=== PATIENT | female | born 1975 | race Two or more races ===

== ENCOUNTER 2016-09-07 04:48 | Emergency (ER) | payer OTHER ==
[2016-09-07 05:11] VITALS: BP 113/65; PULSE 117; TEMP 98; BMI 27.3
--- NOTE | 2016-09-07 05:22 | PDOC ---
History of Present Illness - History of Present Illness Initial Comments: 09/07/16 06:07 The patient is a 41 year old female, with a significant past medical history of migraines, who presents to the emergency department with dry cough, sinus congestion, generalized body aches, throat pain, and fevers for a week. She reports her cough is dry, non-productive and persistent. She states her sinuses have felt congested for about 5 months, however, reports the area surrounding her nose feels more painful today. She also reports feeling diffuse muscle aches along with her fevers. The patient also reports sever throat pain, worse with swallowing and opening her mouth. She denies having the Flu vaccine this season. She denies sick contacts. She denies chest pain, shortness of breath, headache and dizziness. She denies chills, nausea, vomit, diarrhea and constipation. She denies dysuria, frequency , urgency and hematuria. Allergies: NKDA <Ary Parrish - Last Filed: 09/07/16 06:06> <Tanner Aguirre - Last Filed: 09/07/16 06:45> - General Chief Complaint: Cold Symptoms Stated Complaint: COUGHING/FEVER/BODY ACHES Past History <Ary Parrish - Last Filed: 09/07/16 06:06> - Past Medical History Suicide Attempt (Hx): No - Immunization History Immunization Up to Date: Yes - Psycho/Social/Smoking Cessation Hx Anxiety: No Suicidal Ideation: No Smoking Status: No Smoking History: Never smoked Have you smoked in the past 12 months: No Number of Cigarettes Smoked Daily: 0 Cigars Per Day: 0 Information on smoking cessation initiated: No Hx Alcohol Use: No Drug/Substance Use Hx: No Substance Use Type: None Hx Substance Use Treatment: No <Tanner Aguirre - Last Filed: 09/07/16 06:45> - Past Medical History Allergies/Adverse Reactions: Allergies Allergy/AdvReac Type Severity Reaction Status Date / Time oxycodone HCl [From Percocet] Allergy Severe Swelling Verified 09/07/16 04:56 pseudoephedrine HCl Allergy Severe Elevated Verified 09/07/16 04:56 [From Sudafed] Blood Pressure Sulfa (Sulfonamide Allergy Severe Elevated Verified 09/07/16 04:56 Antibiotics) Blood [Sulfa(Sulfonamide Pressure Antibiotics)] Penicillins Allergy Unknown Verified 09/07/16 04:56 azithromycin [From Zithromax] Allergy Elevated Verified 09/07/16 04:56 Blood Pressure codeine [Codeine] AdvReac Mild Elevated Verified 09/07/16 04:56 Blood Pressure Home Medications: Ambulatory Orders Hydroxyzine Pamoate [Vistaril -] 25 mg PO TID 09/07/16 Review of Systems - Review of Systems Able to Perform ROS?: Yes Comments:: 09/07/16 06:07 CONSTITUTIONAL: (+) fever and generalized weakness. Absent: chills, diaphoresis, malaise, loss of appetite HEENT: (+) nasal congestion, throat pain. Absent: rhinorrhea, throat swelling, difficulty swallowing, mouth swelling, ear pain, eye pain, visual Changes CARDIOVASCULAR: Absent: chest pain, syncope, palpitations, irregular heart rate, lightheadedness , peripheral edema RESPIRATORY: (+) cough. Absent: shortness of breath, dyspnea with exertion, orthopnea, wheezing, stridor, hemoptysis GASTROINTESTINAL: Absent: abdominal pain, abdominal distension, nausea, vomiting, diarrhea, constipation, melena, hematochezia GENITOURINARY: Absent: dysuria, frequency, urgency, hesitancy, hematuria, flank pain, genital pain MUSCULOSKELETAL: (+) generalized myalgia. Absent: arthralgia, joint swelling SKIN: Absent: rash, itching, pallor HEMATOLOGIC/IMMUNOLOGIC: Absent: easy bleeding, easy bruising, lymphadenopathy, frequent infections ENDOCRINE: Absent: unexplained weight gain, unexplained weight loss, heat intolerance, cold intolerance NEUROLOGIC: Absent: headache, focal weakness or paresthesias, dizziness, unsteady gait, seizure, mental status changes, bladder or bowel incontinence PSYCHIATRIC: Absent: anxiety, depression, suicidal or homicidal ideation, hallucinations. <Ary Parrish - Last Filed: 09/07/16 06:06> *Physical Exam - Vital Signs Last Vital Signs Temp Pulse Resp BP Pulse Ox 98.0 F 117 H 14 113/65 96 09/07/16 04:57 09/07/16 04:57 09/07/16 04:57 09/07/16 04:57 09/07/16 04:57 - Physical Exam Comments: 09/07/16 06:09 GENERAL: Well developed, well nourished. Awake and alert. No acute distress. HEENT: (+) Sinusitis. Normocephalic, atraumatic. PERRLA, EOMI. No conjunctival pallor. Sclera are non-icteric. Moist mucous membranes. Oropharynx is clear. NECK: (+) tender cervical lymphadenopathy, Supple. Full ROM. No JVD. Carotid pulses 2 + and symmetric, without bruits. No thyromegaly. CARDIOVASCULAR: Regular rate and rhythm. No murmurs, rubs, or gallops. Distal pulses are 2+ and symmetric. PULMONARY: No evidence of respiratory distress. Lungs clear to auscultation bilaterally. No wheezing, rales or rhonchi. ABDOMINAL: Soft. Non-tender. Non-distended. No rebound or guarding. No organomegaly. Normoactive bowel sounds. MUSCULOSKELETAL Normal range of motion at all joints. No bony deformities or tenderness. No CVA tenderness. EXTREMITIES: No cyanosis. No clubbing. No edema. No calf tenderness. SKIN: Warm and dry. Normal capillary refill. No rashes. No jaundice. NEUROLOGICAL: Alert, awake, appropriate. Cranial nerves 2-12 intact. Normoreflexic in the upper and lower extremities. Normal speech. Toes are down-going bilaterally. Gait is normal without ataxia. PSYCHIATRIC: Cooperative. Good eye contact. Appropriate mood and affect. <Ary Parrish - Last Filed: 09/07/16 06:06> - Vital Signs Last Vital Signs Temp Pulse Resp BP Pulse Ox 98.0 F 117 H 14 113/65 96 09/07/16 04:57 09/07/16 04:57 09/07/16 04:57 09/07/16 04:57 09/07/16 04:57 <Tanner Aguirre - Last Filed: 09/07/16 06:45> *DC/Admit/Observation/Transfer - Attestations Scribe Attestion: 09/07/16 06:11 Documentation prepared by Ary Parrish, acting as medical director/head team physician for Tanner Aguirre MD, MD <Ary Parrish - Last Filed: 09/07/16 06:06> - Discharge Dispostion Admit: No <Tanner Aguirre - Last Filed: 09/07/16 06:45> Diagnosis at time of Disposition: Acute viral pharyngitis - Discharge Dispostion Disposition: HOME Condition at time of disposition: Stable - Referrals Referrals: Aicha Patricio MD [Primary Care Provider] - - Patient Instructions Printed Discharge Instructions: DI for Viral Syndrome
[2016-09-07] MEDS ORDERED: ACETAMINOPHEN 325 MG TABLET (FP) PO ONE (06:40)
[2016-09-07] MEDS ORDERED: ACETAMINOPHEN 325 MG TABLET (FP) ONE (06:45)
== END 2016-09-07 07:02 | disposition home or self-care (01) ==
LOC: JER 04:48
DX: J02.8 Acute pharyngitis due to other specified organisms (principal); B97.89 Other viral agents as the cause of diseases classified elsewhere
CPT/HCPCS: 87070; 87430; 87804; 99282-25

== ENCOUNTER 2016-10-14 00:36 | Emergency (ER) | payer OTHER ==
[2016-10-14 00:58] VITALS: BP 129/84; PULSE 90; TEMP 97.9; BMI 27.0
[2016-10-14] MEDS ORDERED: CYCLOBENZAPRINE HCL 10 MG TABLET (FP) PO ONE (01:07)
--- NOTE | 2016-10-14 01:07 | PDOC ---
History of Present Illness - General History Source: Patient <Froylan Dumont - Last Filed: 10/14/16 01:10> - General History Source: Patient Exam Limitations: No Limitations - History of Present Illness Initial Comments: 10/14/16 01:12 The patient is a 41 year old female with significant past medical history of fibromyalgia who presents to the ED with fibromyalgia exacerbation. Patient reports she has not had an exacerbation within the past several months. Last time she was here she was prescribed flexeril, which alleviated her symptoms The patient denies fever, chills, cough, SOB, chest pain, and palpitations. The patient denies abdominal pain, nausea, vomiting, and diarrhea. Allergies: oxycodone HCl, pseudoephedrine HCl, sulfa, penicillin, azithromycin, codeine Social History: No alcohol, tobacco, or drug use reported. Past Surgical History: None reported PCP: Dr. Aicha Patricio <Meagan Alarcon - Last Filed: 10/14/16 01:13> - General Chief Complaint: Pain Stated Complaint: PAIN Time Seen by Provider: 10/14/16 01:04 Past History - Past Medical History Suicide Attempt (Hx): No - Immunization History Immunization Up to Date: Yes - Psycho/Social/Smoking Cessation Hx Anxiety: No Suicidal Ideation: No Smoking Status: No Smoking History: Never smoked Have you smoked in the past 12 months: No Number of Cigarettes Smoked Daily: 0 Cigars Per Day: 0 Hx Alcohol Use: No Drug/Substance Use Hx: No Substance Use Type: None Hx Substance Use Treatment: No <JuliaFroylan - Last Filed: 10/14/16 01:10> <Meagan Alarcon - Last Filed: 10/14/16 01:13> - Past Medical History Allergies/Adverse Reactions: Allergies Allergy/AdvReac Type Severity Reaction Status Date / Time oxycodone HCl [From Percocet] Allergy Severe Swelling Verified 10/14/16 00:48 pseudoephedrine HCl Allergy Severe Elevated Verified 10/14/16 00:48 [From Sudafed] Blood Pressure Sulfa (Sulfonamide Allergy Severe Elevated Verified 10/14/16 00:48 Antibiotics) Blood [Sulfa(Sulfonamide Pressure Antibiotics)] Penicillins Allergy Unknown Verified 10/14/16 00:48 azithromycin [From Zithromax] Allergy Elevated Verified 10/14/16 00:48 Blood Pressure codeine [Codeine] AdvReac Mild Elevated Verified 10/14/16 00:48 Blood Pressure Home Medications: Ambulatory Orders Hydroxyzine Pamoate [Vistaril -] 25 mg PO TID 09/07/16 Ibuprofen [Motrin -] 600 mg PO QID PRN #28 tablet 09/07/16 Cyclobenzaprine HCl [Flexeril 10 mg] 10 mg PO BID PRN #60 tablet 10/14/16 Review of Systems - Review of Systems Able to Perform ROS?: Yes Comments:: 10/14/16 01:13 CONSTITUTIONAL: Absent: fever, no chills, no fatigue EYES: Absent: visual changes ENT: Absent: ear pain, no sore throat CARDIOVASCULAR: Absent: chest pain, no palpitations RESPIRATORY: Absent: cough, no SOB GI: Absent: abdominal pain, no nausea, no vomiting, no constipation, no diarrhea GENITOURINARY: Absent: dysuria, no frequency, no hematuria MUSCULOSKELETAL: +diffuse chronic pain SKIN: Absent: rash NEURO: Absent: headache <Meagan Alarcon - Last Filed: 10/14/16 01:13> *Physical Exam - Vital Signs Last Vital Signs Temp Pulse Resp BP Pulse Ox 97.9 F 90 16 129/84 100 10/14/16 00:46 10/14/16 00:46 10/14/16 00:46 10/14/16 00:46 10/14/16 00:46 <Froylan Dumont - Last Filed: 10/14/16 01:10> - Vital Signs Last Vital Signs Temp Pulse Resp BP Pulse Ox 97.9 F 90 16 129/84 100 10/14/16 00:46 10/14/16 00:46 10/14/16 00:46 10/14/16 00:46 10/14/16 00:46 - Physical Exam Comments: 10/14/16 01:13 GENERAL: Well-appearing, well-nourished. No apparent distress. HEENT: Normocephalic, atraumatic. PERRL, EOM intact. CARDIOVASCULAR: Normal S1, S2. Regular rate and rhythm. PULMONARY: Clear to auscultation bilaterally. ABDOMEN: Soft, non-distended, non-tender. EXTREMITIES: Normal ROM in all four extremities. No gross deformities. SKIN: Warm, dry. No rash NEUROLOGICAL: No focal neurological deficits. <Meagan Alarcon - Last Filed: 10/14/16 01:13> Medical Decision Making - Medical Decision Making 10/14/16 01:11 Dr. Dumont: The scribe's documentation has been prepared under my direction and personally reviewed by me in its entirery. I confirm that the note above accurately reflects all work, treatment, procedures, and medical decision making performed by me. <Froylan Dumont - Last Filed: 10/14/16 01:10> *DC/Admit/Observation/Transfer - Discharge Dispostion Admit: No <Froylan Dumont - Last Filed: 10/14/16 01:10> - Attestations Scribe Attestion: 10/14/16 01:13 Documentation prepared by Meagan Alarcon, acting as medical orderly for Froylan Dumont MD <Meagan Alarcon - Last Filed: 10/14/16 01:13> Diagnosis at time of Disposition: Fibromyalgia - Discharge Dispostion Disposition: HOME - Prescriptions Prescriptions: Cyclobenzaprine HCl [Flexeril 10 mg] 10 mg PO BID PRN #60 tablet PRN Reason: Pain - Referrals Referrals: Aicha Patricio MD [Primary Care Provider] - - Patient Instructions Printed Discharge Instructions: Fibromyalgia
== END 2016-10-14 01:52 | disposition home or self-care (01) ==
LOC: JER 00:36
DX: M79.7 Fibromyalgia (principal)
CPT/HCPCS: 99282-25

== ENCOUNTER 2016-12-25 06:46 | Emergency (ER) | payer OTHER ==
[2016-12-25 06:52] VITALS: BMI 26.0
--- NOTE | 2016-12-25 07:19 | PDOC ---
History of Present Illness - General History Source: Patient Exam Limitations: No Limitations - History of Present Illness Initial Comments: 12/25/16 07:35 The patient is a 41 year old male with a significant past medical history of migraines and fibromyalgia who presents to the ED with complaints of epigastric pain since earlier today. The patient reports taking motrin last night on a empty stomach for body aches secondary to her history of fibromyalgia. She reports a sudden onset of epigastric pain this morning that woke her up from her sleep. Patient reports similar symptoms in the past and states she typically gets abdominal irritation secondary to taking motrin on an empty stomach. She also reports left lower quadrant pain several days ago that has subsided. Denies fevers or chills. Denies nausea, vomiting, or diarrhea. Denies chest pain or shortness of breath. Denies dysuria, frequency, urgency, or hesitancy. Denies any other symptoms. Allergies: Sulfa <Jessenia Delgado - Last Filed: 12/25/16 07:35> <Jasmin Ruiz - Last Filed: 12/25/16 09:59> - General Chief Complaint: Pain, Acute Stated Complaint: ABD PAIN Time Seen by Provider: 12/25/16 07:17 Past History <Jessenia Delgado - Last Filed: 12/25/16 07:35> - Past Medical History Suicide Attempt (Hx): No - Immunization History Immunization Up to Date: Yes - Psycho/Social/Smoking Cessation Hx Anxiety: No Suicidal Ideation: No Smoking Status: No Smoking History: Never smoked Have you smoked in the past 12 months: No Number of Cigarettes Smoked Daily: 0 Cigars Per Day: 0 Hx Alcohol Use: No Drug/Substance Use Hx: No Substance Use Type: None Hx Substance Use Treatment: No <Jasmin Ruiz - Last Filed: 12/25/16 09:59> - Past Medical History Allergies/Adverse Reactions: Allergies Allergy/AdvReac Type Severity Reaction Status Date / Time oxycodone HCl [From Percocet] Allergy Severe Swelling Verified 12/25/16 06:48 pseudoephedrine HCl Allergy Severe Elevated Verified 12/25/16 06:48 [From Sudafed] Blood Pressure Sulfa (Sulfonamide Allergy Severe Elevated Verified 12/25/16 06:48 Antibiotics) Blood [Sulfa(Sulfonamide Pressure Antibiotics)] Penicillins Allergy Unknown Verified 12/25/16 06:48 azithromycin [From Zithromax] Allergy Elevated Verified 12/25/16 06:48 Blood Pressure codeine [Codeine] AdvReac Mild Elevated Verified 12/25/16 06:48 Blood Pressure Home Medications: Ambulatory Orders Ibuprofen [Motrin -] 600 mg PO QID PRN #28 tablet 09/07/16 Hydroxyzine Pamoate [Vistaril -] 25 mg PO PRN 12/25/16 Pregabalin [Lyrica -] 50 mg PO PRN PRN 12/25/16 Review of Systems - Review of Systems Able to Perform ROS?: Yes Comments:: 12/25/16 07:35 GENERAL/CONSTITUTIONAL: No fever or chills. No weakness. HEAD, EYES, EARS, NOSE AND THROAT: No change in vision. No ear pain or discharge. No sore throat. CARDIOVASCULAR: No chest pain or shortness of breath. RESPIRATORY: No cough, wheezing, or hemoptysis. GASTROINTESTINAL:+ epigastric pain. No nausea, vomiting, diarrhea or constipation. GENITOURINARY: No dysuria, frequency, or change in urination. MUSCULOSKELETAL: No joint or muscle swelling or pain. No neck or back pain. SKIN: No rash NEUROLOGIC: No headache, vertigo, loss of consciousness, or change in strength/ sensation. ENDOCRINE: No increased thirst. No abnormal weight change. HEMATOLOGIC/LYMPHATIC: No anemia, easy bleeding, or history of blood clots. ALLERGIC/IMMUNOLOGIC: No hives or skin allergy. All Other Systems: Reviewed and Negative <Jessenia Delgado - Last Filed: 12/25/16 07:35> *Physical Exam - Vital Signs Last Vital Signs Temp Pulse Resp BP Pulse Ox 97.7 F 95 H 18 134/77 97 12/25/16 06:50 12/25/16 06:50 12/25/16 06:50 12/25/16 06:50 12/25/16 06:50 - Physical Exam Comments: 12/25/16 07:36 GENERAL:+ Appears uncomfortable. Awake, alert, and fully oriented. HEAD: No signs of trauma EYES: PERRLA, EOMI, sclera anicteric, conjunctiva clear ENT:+ dry mucosa. Auricles normal inspection, hearing grossly normal, nares patent, oropharynx clear without exudates. NECK: Normal ROM, supple, no lymphadenopathy, JVD, or masses LUNGS: Breath sounds equal, clear to auscultation bilaterally. No wheezes, and no crackles HEART: Regular rate and rhythm, normal S1 and S2, no murmurs, rubs or gallops ABDOMEN: + epigastric tenderness. Soft, normoactive bowel sounds. No guarding , no rebound. No masses EXTREMITIES: Normal range of motion, no edema. No clubbing or cyanosis. No cords, erythema, or tenderness NEUROLOGICAL: Cranial nerves II through XII grossly intact. Normal speech, normal gait SKIN: Warm, Dry, normal turgor, no rashes or lesions noted. <Jessenia Delgado - Last Filed: 12/25/16 07:35> - Vital Signs Last Vital Signs Temp Pulse Resp BP Pulse Ox 97.7 F 95 H 18 134/77 97 12/25/16 06:50 12/25/16 06:50 12/25/16 06:50 12/25/16 06:50 12/25/16 06:50 <Jasmin Ruiz - Last Filed: 12/25/16 09:59> ED Treatment Course - LABORATORY CBC & Chemistry Diagram: 12/25/16 07:28 12/25/16 07:28 <Jasmin Ruiz - Last Filed: 12/25/16 09:59> Medical Decision Making - Medical Decision Making 12/25/16 09:27 Pt reports resolution of her symptoms. Labs with no significant findings. Stable for DC home. <Jasmin Ruiz - Last Filed: 12/25/16 09:59> *DC/Admit/Observation/Transfer - Attestations Scribe Attestion: 12/25/16 07:36 Documentation prepared by Jessenia Delgado, acting as medical assistant internal medicine for Jasmin Ruiz MD <Jessenia Delgado - Last Filed: 12/25/16 07:35> - Discharge Dispostion Admit: No <Jasmin Ruiz - Last Filed: 12/25/16 09:59> Diagnosis at time of Disposition: Epigastric abdominal pain - Discharge Dispostion Disposition: HOME Condition at time of disposition: Stable - Referrals Referrals: Aicha Patricio MD [Primary Care Provider] - - Patient Instructions Printed Discharge Instructions: DI for Epigastric Pain Additional Instructions: ZANTAC FOR STOMACH IRRITATION, AVAILABLE OVER THE COUNTER. ALSO CAN TAKE MYLANTA OR MAALOX FOR STOMACH IRRITATION, ALSO OVER THE COUNTER. IF YOU ARE NOT ABLE TO EAT ANYTHING WHEN YOU TAKE IBUPROFEN, THIS CAN BE AN ALTERNATIVE.
[2016-12-25] MEDS ORDERED: ONDANSETRON 4 MG/2 ML VIAL IVPUSH ONE (07:28)
[2016-12-25] MEDS ORDERED: FAMOTIDINE 20 MG/50 ML IVPB 50 ML IVPB ONE ×2 (07:28→07:37)
[2016-12-25] MEDS ORDERED: SODIUM CHLORIDE 1,000 ML IV STA (07:28)
[2016-12-25] MEDS ORDERED: PANTOPRAZOLE SODIUM 40 MG in SODIUM CHLORIDE 100 ML IVPB ONE (07:29)
[2016-12-25] MEDS ORDERED: ONDANSETRON 4 MG/2 ML VIAL ONE (07:37)
[2016-12-25] MEDS ORDERED: PANTOPRAZOLE SODIUM 100 ML IVPB ONE (07:37)
[2016-12-25 08:04] LABS: BASOPHIL 0.7 % (0-2.0); EOSINOPHIL 2.6 % (0-4.5); MCH 30.6 pg (25.7-33.7); MCHC 33.3 g/dl (32.0-36.0); MEAN PLT VOLUME 7.3 fl (7.5-11.1); NEUTROPHILS 59.1 % (42.8-82.8); PLATELET COUNT 217 K/MM3 (134-434); RDW 13.9 % (11.6-15.6); WHITE BLOOD COUNT 6.7 K/mm3 (4.0-10.0)
[2016-12-25 08:11] LABS: URINE APPEARANCE CLEAR; URINE BILIRUBIN NEGATIVE (NEGATIVE); URINE COLOR LTYELLOW; URINE GLUCOSE (UA) NEGATIVE (NEGATIVE); URINE KETONE NEGATIVE (NEGATIVE); URINE LEUK ESTERASE NEGATIVE (NEGATIVE); URINE NITRITE NEGATIVE (NEGATIVE); URINE PROTEIN NEGATIVE (NEGATIVE); URINE UROBILINOGEN NEGATIVE E.U./dl (0.2-1.0)
[2016-12-25 08:12] LABS: URINE BLOOD 3+ (NEGATIVE)
[2016-12-25 08:20] LABS: URINE BACTERIA RARE /hpf (NONE SEEN); URINE MUCUS RARE; URINE RBC 21 /hpf (0-3); URINE WBC 2 /hpf (3-5)
[2016-12-25 08:24] LABS: ALBUMIN 3.7 g/dl (3.4-5.0); ALK PHOS 127 U/L (45-117); ANION GAP 9 (8-16); BILIRUBIN,TOTAL 0.6 mg/dL (0.2-1.0); CALCIUM 8.6 mg/dL (8.5-10.1); CO2 27 mmol/L (21-32); COCKROFT - GAULT 104.5075; CREATININE 0.7 mg/dL (0.55-1.02); GLUCOSE,RANDOM 93 mg/dL (74-106); SGOT/AST 18 U/L (15-37); SGPT/ALT 13 U/L (12-78); TOT PROT 7.9 g/dl (6.4-8.2)
[2016-12-25 10:08] VITALS: BP 128/78; PULSE 82; TEMP 97.4
== END 2016-12-25 10:08 | disposition home or self-care (01) ==
LOC: JER 06:46
PROC: 3E033GC Introduction of Other Therapeutic Substance into Peripheral Vein, Percutaneous Approach (ICD-10-PCS; principal; 2016-12-25)
PROC: 3E0337Z Introduction of Electrolytic and Water Balance Substance into Peripheral Vein, Percutaneous Approach (ICD-10-PCS; 2016-12-25)
DX: R10.13 Epigastric pain (principal); M79.7 Fibromyalgia
CPT/HCPCS: 36415; 80053; 81003; 81015; 83690; 84703; 85025; 96361; 96365; 96368; 99284-25

== ENCOUNTER 2017-01-26 21:29 | Emergency (ER) | payer OTHER ==
[2017-01-26 21:35] VITALS: BP 132/88; PULSE 94; TEMP 98.2; BMI 26.4
--- NOTE | 2017-01-26 22:18 | PDOC ---
History of Present Illness - General History Source: Patient, Old Records Exam Limitations: No Limitations - History of Present Illness Initial Comments: 01/26/17 22:21 The patient is a 42 year old female with a significant past medical history of fibromyalgia, who presents to the emergency department with chest pain for 2 hours. The patient describes her pain as a left sided, pressure sensation radiating to the right side of her chest. She did not report any alleviating or exacerbating factors. The patient notes that her LMP was 5 days ago and denies any recent travel. Allergies: oxycodone HCl, pseudoephedrine HCl, sulfa, penicillin, azithromycin, codeine Social History: No alcohol, tobacco, or drug use reported. Past Surgical History: None reported PCP: Dr. Aicha Patricio PCP: Dr. Adryan Clark [phone] <Tony Castro - Last Filed: 01/26/17 22:23> - General History Source: Patient <Froylan Dumont - Last Filed: 01/26/17 23:47> - General Chief Complaint: Chest Pain Stated Complaint: CHEST PAIN Time Seen by Provider: 01/26/17 22:12 Past History <Tony Castro - Last Filed: 01/26/17 22:23> - Past Medical History Psychiatric Problems: Yes (aNXIETY) Suicide Attempt (Hx): No - Immunization History Immunization Up to Date: Yes - Psycho/Social/Smoking Cessation Hx Anxiety: No Suicidal Ideation: No Smoking Status: No Smoking History: Never smoked Have you smoked in the past 12 months: No Number of Cigarettes Smoked Daily: 0 Cigars Per Day: 0 Information on smoking cessation initiated: No Hx Alcohol Use: No Drug/Substance Use Hx: No Substance Use Type: None Hx Substance Use Treatment: No <Froylan Dumont - Last Filed: 01/26/17 23:47> - Past Medical History Allergies/Adverse Reactions: Allergies Allergy/AdvReac Type Severity Reaction Status Date / Time oxycodone HCl [From Percocet] Allergy Severe Swelling Verified 01/26/17 21:32 pseudoephedrine HCl Allergy Severe Elevated Verified 01/26/17 21:32 [From Sudafed] Blood Pressure Sulfa (Sulfonamide Allergy Severe Elevated Verified 01/26/17 21:32 Antibiotics) Blood [Sulfa(Sulfonamide Pressure Antibiotics)] Penicillins Allergy Unknown Verified 01/26/17 21:32 azithromycin [From Zithromax] Allergy Elevated Verified 01/26/17 21:32 Blood Pressure codeine [Codeine] AdvReac Mild Elevated Verified 01/26/17 21:32 Blood Pressure Home Medications: Ambulatory Orders Ibuprofen [Motrin -] 600 mg PO QID PRN #28 tablet 09/07/16 Hydroxyzine Pamoate [Vistaril -] 25 mg PO PRN 12/25/16 Pregabalin [Lyrica -] 50 mg PO PRN PRN 12/25/16 Review of Systems - Review of Systems Able to Perform ROS?: Yes Comments:: 01/26/17 22:21 CONSTITUTIONAL: Absent: fever, no chills, no fatigue EYES: Absent: visual changes ENT: Absent: ear pain, no sore throat CARDIOVASCULAR: Present: Chest pain Absent: No palpitations RESPIRATORY: Absent: cough, no SOB GI: Absent: abdominal pain, no nausea, no vomiting, no constipation, no diarrhea GENITOURINARY: Absent: dysuria, no frequency, no hematuria MUSCULOSKELETAL: Absent: back pain, no arthralgia, no myalgia SKIN: Absent: rash <Tony Castro - Last Filed: 01/26/17 22:23> *Physical Exam - Vital Signs Last Vital Signs Temp Pulse Resp BP Pulse Ox 98.2 F 94 H 16 132/88 100 01/26/17 21:31 01/26/17 21:31 01/26/17 21:31 01/26/17 21:31 01/26/17 21:31 - Physical Exam Comments: 01/26/17 22:22 GENERAL: Well-appearing, well-nourished. No apparent distress. HEENT: Normocephalic, atraumatic. PERRL, EOM intact. CARDIOVASCULAR: Normal S1, S2. Regular rate and rhythm. PULMONARY: Clear to auscultation bilaterally. ABDOMEN: Soft, non-distended, non-tender. EXTREMITIES: Normal ROM in all four extremities. No gross deformities. SKIN: Warm, dry. No rash NEUROLOGICAL: No focal neurological deficits. <Tony Castro - Last Filed: 01/26/17 22:23> - Vital Signs Last Vital Signs Temp Pulse Resp BP Pulse Ox 98.2 F 94 H 16 132/88 100 01/26/17 21:31 01/26/17 21:31 01/26/17 21:31 01/26/17 21:31 01/26/17 21:31 <Froylan Dumont - Last Filed: 01/26/17 23:47> Heart Score/ECG Review - ECG Impressions Comment:: 01/26/17 22:24 Normal sinus rhythm. Possible left atrial enlargement. Incomplete right bundle branch block. Borderline ECG. <Tony Castro - Last Filed: 01/26/17 22:23> Medical Decision Making - Medical Decision Making 01/26/17 23:42 Dr. Dumont: The scribe's documentation has been prepared under my direction and personally reviewed by me in its entirery. I confirm that the note above accurately reflects all work, treatment, procedures, and medical decision making performed by me. Pt walked out immediately after she was evaluated. Pt was hemodynamically stable. No needed to recall <Froylan Dumont - Last Filed: 01/26/17 23:47> *DC/Admit/Observation/Transfer - Attestations Scribe Attestion: 01/26/17 22:22 Documentation prepared by Tony Castro, acting as medical claims representative for Froylan Dumont DO. <Tony Castro - Last Filed: 01/26/17 22:23> - Discharge Dispostion Admit: No <Froylan Dumont - Last Filed: 01/26/17 23:47> Diagnosis at time of Disposition: Eloped - Discharge Dispostion Disposition: ELOPED Condition at time of disposition: Stable - Referrals Referrals: STAFF,NOT ON [Primary Care Provider] -
[2017-01-26] MEDS ORDERED: ACETAMINOPHEN 325 MG TABLET (FP) PO ONE (22:21)
--- NOTE | 2017-01-27 10:42 | EKG ---
Test Reason : Blood Pressure : / mmHG Vent. Rate : 088 BPM Atrial Rate : 088 BPM P-R Int : 160 ms QRS Dur : 094 ms QT Int : 380 ms P-R-T Axes : 071 000 042 degrees QTc Int : 459 ms NORMAL SINUS RHYTHM POSSIBLE LEFT ATRIAL ENLARGEMENT INCOMPLETE RIGHT BUNDLE BRANCH BLOCK BORDERLINE ECG WHEN COMPARED WITH ECG OF 09-JAN-2014 21:53, INCOMPLETE RIGHT BUNDLE BRANCH BLOCK IS NOW PRESENT Confirmed by MAIA STANLEY, AMBER ([id number]) on 01/27/2017 10:41:53 AM Referred By: Confirmed By:AMBER CARVALHO MD
== END 2017-01-26 22:36 | disposition left against medical advice (07) ==
LOC: JER 21:29
DX: R07.89 Other chest pain (principal)
CPT/HCPCS: 93005; 93010; 99282-25

== ENCOUNTER 2017-02-14 22:38 | Emergency (ER) | payer OTHER ==
[2017-02-14 22:50] VITALS: BP 123/78; PULSE 80; TEMP 98.2; BMI 26.4
--- NOTE | 2017-02-14 23:05 | PDOC ---
Attending Attestation - Resident Resident Name: Laz Lockwood - HPI HPI: 02/15/17 01:49 Pt comes with fibromylagia of neck and back. She is worried that it is something serious. - Physicial Exam PE: 02/15/17 01:50 Afebrlie, exam normal, pt has normal labs and normal vitals - Medical Decision Making 02/15/17 01:50 Follow with PMD.Home with OTC analgesia Pt advised to get a volunteer job or vocation to get her mind off of her stresses. She is on disability for her fibromyalgia. Pt admits that she is under a lot of stress and that is causing tension and cramping in her neck and trapezius muscles.
[2017-02-14] MEDS ORDERED: SODIUM CHLORIDE 0.9% 1000 ML INFUS.BAG IV ONE (23:10)
[2017-02-14] MEDS ORDERED: ACETAMINOPHEN 1000 MG/100 ML VIAL (NON FORMULARY) IVPB ONE (23:11)
[2017-02-14] MEDS ORDERED: ACETAMINOPHEN INJECTION 100 ML IVPB ONE (23:14)
[2017-02-14 23:56] LABS: BASOPHIL 0.8 % (0-2.0); EOSINOPHIL 2.1 % (0-4.5); MCH 29.8 pg (25.7-33.7); MCHC 32.7 g/dl (32.0-36.0); MEAN CELL VOLUME 91.1 fl (80-96); MEAN PLT VOLUME 7.7 fl (7.5-11.1); NEUTROPHILS 60.7 % (42.8-82.8); PLATELET COUNT 212 K/MM3 (134-434); RDW 13.9 % (11.6-15.6); WHITE BLOOD COUNT 7.2 K/mm3 (4.0-10.0)
[2017-02-15 00:19] LABS: ALBUMIN 3.4 g/dl (3.4-5.0); ANION GAP 5 (8-16); BILIRUBIN,TOTAL 0.6 mg/dL (0.2-1.0); CALCIUM 8.7 mg/dL (8.5-10.1); CO2 31 mmol/L (21-32); CREATININE 0.6 mg/dL (0.55-1.02); GLUCOSE,RANDOM 116 mg/dL (74-106); SGOT/AST 17 U/L (15-37); SGPT/ALT 10 U/L (12-78); TOT PROT 7.3 g/dl (6.4-8.2)
[2017-02-15 00:20] LABS: ALK PHOS 108 U/L (45-117)
--- NOTE | 2017-02-15 00:22 | PDOC ---
History of Present Illness - General Chief Complaint: Pain, Acute Stated Complaint: NECK PAIN Time Seen by Provider: 02/14/17 22:44 History Source: Patient Exam Limitations: No Limitations - History of Present Illness Initial Comments: 02/14/17 23:16 The patient is a 42F with a PMH of fibromyalgia x 9 years and panic attacks who presents to the ER with complaints of 3 days of throbbing neck pain with weakness. The patient states that the pain started 3 days ago and is associated with b/l finger swelling sensation. The pain is located in the back of her head She has been eating and drinking well. She has positive stressors in her life. Her last fibromyalgia flare up was 1 year ago. She states that motrin helps but she didn't want to take it because it causes gastritis. The patient does not follow up with her neurologist because she thinks it's "annoying". PSH: 3 c/s Allergies: codeine and sulfa drugs Past History - Past Medical History Allergies/Adverse Reactions: Allergies Allergy/AdvReac Type Severity Reaction Status Date / Time oxycodone HCl [From Percocet] Allergy Severe Swelling Verified 01/26/17 21:32 pseudoephedrine HCl Allergy Severe Elevated Verified 01/26/17 21:32 [From Sudafed] Blood Pressure Sulfa (Sulfonamide Allergy Severe Elevated Verified 01/26/17 21:32 Antibiotics) Blood [Sulfa(Sulfonamide Pressure Antibiotics)] Penicillins Allergy Unknown Verified 01/26/17 21:32 azithromycin [From Zithromax] Allergy Elevated Verified 01/26/17 21:32 Blood Pressure codeine [Codeine] AdvReac Mild Elevated Verified 01/26/17 21:32 Blood Pressure Home Medications: Ambulatory Orders Ibuprofen [Motrin -] 600 mg PO QID PRN #28 tablet 09/07/16 Hydroxyzine Pamoate [Vistaril -] 25 mg PO PRN 12/25/16 Pregabalin [Lyrica -] 50 mg PO PRN PRN 12/25/16 Psychiatric Problems: Yes (aNXIETY) Suicide Attempt (Hx): No Other medical history: fibromyalgia - Immunization History Immunization Up to Date: Yes - Psycho/Social/Smoking Cessation Hx Anxiety: No Suicidal Ideation: No Smoking Status: No Smoking History: Never smoked Have you smoked in the past 12 months: No Number of Cigarettes Smoked Daily: 0 Cigars Per Day: 0 Hx Alcohol Use: No Drug/Substance Use Hx: No Substance Use Type: None Hx Substance Use Treatment: No Review of Systems - Review of Systems Able to Perform ROS?: Yes Is the patient limited Georgian proficient: No Constitutional: Yes: Chills. No: Fever HEENTM: Yes: Blurred Vision (x 1 month) ABD/GI: No: Other (Abd pain) : No: Burning, Dysuria Musculoskeletal: Yes: Neck Pain Integumentary: No: Lesions, Lumps Neurological: Yes: Other ("weird feeling in fingers"). No: Numbness, Tingling Psychiatric: Yes: Stressors *Physical Exam - Vital Signs Last Vital Signs Temp Pulse Resp BP Pulse Ox 98.2 F 80 18 123/78 99 02/14/17 22:49 02/14/17 22:49 02/14/17 22:49 02/14/17 22:49 02/14/17 22:49 - Physical Exam General Appearance: Yes: Nourished, Appropriately Dressed. No: Apparent Distress HEENT: negative: Scleral Icterus (R), Scleral Icterus (L) Respiratory/Chest: positive: Lungs Clear, Normal Breath Sounds. negative: Chest Tender, Respiratory Distress Cardiovascular: positive: Regular Rhythm, Regular Rate, S1, S2 Gastrointestinal/Abdominal: positive: Normal Bowel Sounds, Flat, Soft. 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 negative: Confused , Disoriented ED Treatment Course - LABORATORY CBC & Chemistry Diagram: 02/14/17 23:45 02/14/17 23:45 Medical Decision Making - Medical Decision Making 02/15/17 00:32 Patient is a 42F with a PMH of fibromyalgia who is presenting with nonspecific pain x 3 days. The patient is requesting specific narcotic medications and I have given IV tylenol and fluids. I will reassess when these finish. 02/15/17 00:41 Patient reassessed after 1g IV tylenol and states she is feeling better. I will wait for 1 L of fluids to finish and reassess again. Labs WNL. Vital signs still stable. 02/15/17 01:21 Patient states she's feeling better and is ready for discharge. *DC/Admit/Observation/Transfer Diagnosis at time of Disposition: Pain aggravated by anxiety - Discharge Dispostion Disposition: HOME Condition at time of disposition: Improved Admit: No - Patient Instructions Additional Instructions: Please return to the ER if symptoms persist, worsen, or new symptoms arise. Please call your neurologist for follow up and let them know you visited us in the ER today. Print Language: MONGOLIAN - Attestations Physician Attestion: 02/15/17 01:24 I, Dr. Laz Lockwood, attest that this document has been prepared under my direction and personally reviewed by me in its entirety. I further attest, that it accurately reflects all work, treatment, procedures and medical decision -making performed by me.
== END 2017-02-15 01:45 | disposition home or self-care (01) ==
LOC: JER 22:38
PROC: 3E033NZ Introduction of Analgesics, Hypnotics, Sedatives into Peripheral Vein, Percutaneous Approach (ICD-10-PCS; principal; 2017-02-14)
DX: M79.7 Fibromyalgia (principal); F41.9 Anxiety disorder, unspecified
CPT/HCPCS: 36415; 80053; 85025; 85651; 96374; 99281-25

== ENCOUNTER 2017-05-05 22:40 | Emergency (ER) | payer OTHER ==
[2017-05-05 22:45] VITALS: BP 132/85; PULSE 89; TEMP 98.1; BMI 26.4
--- NOTE | 2017-05-05 23:43 | PDOC ---
History of Present Illness - General Chief Complaint: Pain Stated Complaint: PAIN Time Seen by Provider: 05/05/17 23:42 - History of Present Illness Initial Comments: 05/05/17 23:42 Ms. Quentin Simpson is a 42 yo female with a significant past medical history of fibromyalgia and anxiety who presents to the emergency department complaining of 3 days of the entire left side of her body in pain. She additionally reports that her ribs on the left side hurt as well, and thinks her pain might be from her fibromyalgia. The patient denies chest pain, shortness of breath, headache and dizziness. Denies fever, chills, nausea, vomit, diarrhea and constipation. Denies dysuria, frequency, urgency and hematuria. Past History - Past Medical History Allergies/Adverse Reactions: Allergies Allergy/AdvReac Type Severity Reaction Status Date / Time oxycodone HCl [From Percocet] Allergy Severe Swelling Verified 05/05/17 22:45 pseudoephedrine HCl Allergy Severe Elevated Verified 05/05/17 22:45 [From Sudafed] Blood Pressure Sulfa (Sulfonamide Allergy Severe Elevated Verified 05/05/17 22:45 Antibiotics) Blood [Sulfa(Sulfonamide Pressure Antibiotics)] Penicillins Allergy Unknown Verified 05/05/17 22:45 azithromycin [From Zithromax] Allergy Elevated Verified 05/05/17 22:45 Blood Pressure codeine [Codeine] AdvReac Mild Elevated Verified 05/05/17 22:45 Blood Pressure Home Medications: Ambulatory Orders Hydroxyzine Pamoate [Vistaril -] 25 mg PO PRN 12/25/16 Pregabalin [Lyrica -] 50 mg PO PRN PRN 12/25/16 Psychiatric Problems: Yes (aNXIETY) - Immunization History Immunization Up to Date: Yes - Suicide/Smoking/Psychosocial Hx Smoking Status: No Smoking History: Never smoked Have you smoked in the past 12 months: No Number of Cigarettes Smoked Daily: 0 Cigars Per Day: 0 Information on smoking cessation initiated: No Hx Alcohol Use: No Drug/Substance Use Hx: No Substance Use Type: None Hx Substance Use Treatment: No Review of Systems - Review of Systems Comments:: 05/05/17 23:43 GENERAL/CONSTITUTIONAL: No fever or chills. No weakness. HEAD, EYES, EARS, NOSE AND THROAT: No change in vision. No ear pain or discharge. No sore throat. CARDIOVASCULAR: No chest pain or shortness of breath RESPIRATORY: No cough, wheezing, or hemoptysis. GASTROINTESTINAL: No nausea, vomiting, diarrhea or constipation. GENITOURINARY: No dysuria, frequency, or change in urination. MUSCULOSKELETAL: +Left sided body pain "all over" SKIN: No rash NEUROLOGIC: No headache, vertigo, loss of consciousness, or change in strength/ sensation. ENDOCRINE: No increased thirst. No abnormal weight change HEMATOLOGIC/LYMPHATIC: No anemia, easy bleeding, or history of blood clots. ALLERGIC/IMMUNOLOGIC: No hives or skin allergy. *Physical Exam - Vital Signs Last Vital Signs Temp Pulse Resp BP Pulse Ox 98.1 F 89 18 132/85 98 05/05/17 22:41 05/05/17 22:41 05/05/17 22:41 05/05/17 22:41 05/05/17 22:41 - Physical Exam Comments: 05/05/17 23:43 GENERAL: Awake, alert, and fully oriented, in no acute distress HEAD: No signs of trauma, normocephalic, atraumatic EYES: PERRLA, EOMI, sclera anicteric, conjunctiva clear ENT: Auricles normal inspection, hearing grossly normal, nares patent, oropharynx clear without exudates. Moist mucosa NECK: Normal ROM, supple, no lymphadenopathy, JVD, or masses LUNGS: No distress, speaks full sentences, clear to auscultation bilaterally HEART: Regular rate and rhythm, normal S1 and S2, no murmurs, rubs or gallops, peripheral pulses normal and equal bilaterally. ABDOMEN: Soft, nontender, normoactive bowel sounds. No guarding, no rebound. No masses EXTREMITIES: Normal inspection, Normal range of motion, no edema. No clubbing or cyanosis. NEUROLOGICAL: Cranial nerves II through XII grossly intact. Normal speech, normal gait, no focal sensorimotor deficits SKIN: Warm, Dry, normal turgor, no rashes or lesions noted. ED Treatment Course - LABORATORY CBC & Chemistry Diagram: 05/06/17 00:40 05/06/17 00:40 Medical Decision Making - Medical Decision Making 05/06/17 01:37 Patient presents with fibromyalgia pain on lyrica. Adult labs as below. Will give follow-up for neurology for further investigation of her complaints. *DC/Admit/Observation/Transfer Diagnosis at time of Disposition: Fibromyalgia - Discharge Dispostion Disposition: HOME - Referrals Referrals: Aicha Patricio MD [Primary Care Provider] - Miles Loja MD [Staff Physician] - - Patient Instructions Printed Discharge Instructions: Fibromyalgia Additional Instructions: Please follow up with Dr. Loja for outpatient care. Return if any fever, chills, severe pain, or any other concerning developments.
--- NOTE | 2017-05-06 00:07 | PDOC ---
Attending Attestation - HPI HPI: 05/06/17 00:09 42 yr old female, with significant past medical history of fibromyalgia and anxiety, who presents to the emergency room complaining of 3 days of left sided body pain and left sided rib pain. She states that it feels like her fibromyalgia pain. She states that she has been compliant with lyrica. Denies chest pain, SOB. Denies fever, chills, nausea, vomiting. Allergies: oxycodone HCl, sulfa, pseudoephedrine HCl, sulfa PCP: Dr. Aicha Patricio <Mary Kevin - Last Filed: 05/06/17 00:09> - Resident Resident Name: Toney Cueto - ED Attending Attestation I have performed the following: I have examined & evaluated the patient, The case was reviewed & discussed with the resident, I agree w/resident's findings & plan, Exceptions are as noted - Physicial Exam PE: 05/06/17 00:06 *Physical Exam General Appearance: Yes: Appropriately Dressed. No: Apparent Distress, Intoxicated HEENT: positive: EOMI, SHAY, Normal ENT Inspection, Normal Voice, TMs Normal, Pharynx Normal. negative: Pale Conjunctivae, Photophobia, Scleral Icterus (R), Scleral Icterus (L) Neck: positive: Trachea midline, Normal Thyroid, Supple. negative: Tender, Rigid, Carotid bruit, Stridor, Lymphadenopathy (R), Lymphadenopathy (L), Thyromegaly Respiratory/Chest: positive: Lungs Clear, Normal Breath Sounds. negative: Chest Tender, Respiratory Distress, Accessory Muscle Use, Labored Respiration, RES, Crackles, Rales, Rhonchi, Stridor, Wheezing, Dullness Cardiovascular: positive: Regular Rhythm, Regular Rate, S1, S2. negative: Edema , JVD, Murmur, Bradycardia, Tachycardia Vascular Pulses: Dorsalis-Pedis (R): 2+, Doralis-Pedis (L): 2+ Gastrointestinal/Abdominal: positive: Normal Bowel Sounds, Flat, Soft. negative : Tender, Organomegaly, Pulsatile Mass, Increased Bowel Sounds, Decreased BS, Distended, Guarding, Rebound, Hernia, Hepatomegaly, Spleenomegaly Lymphatic: negative: Adenopathy, Tenderness Musculoskeletal: positive: Normal Inspection. negative: CVA Tenderness, Decreased Range of Motion Extremity: positive: Normal Capillary Refill, Normal Inspection, Normal Range of Motion, Pelvis Stable. negative: Tender, Pedal Edema, Swelling, Erythema Integumentary: positive: Normal Color, Dry, Warm. 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 negative: EOM Palsy, Facial Droop, Sensory Deficit - Medical Decision Making 05/06/17 19:26 Labs done. All negative.pt discharged <Froylan Dumont - Last Filed: 05/06/17 19:27>
[2017-05-06 00:46] LABS: BASOPHIL 0.8 % (0-2.0); EOSINOPHIL 3.6 % (0-4.5); MCHC 32.7 g/dl (32.0-36.0); MEAN CELL VOLUME 91.8 fl (80-96); MEAN PLT VOLUME 7.4 fl (7.5-11.1); NEUTROPHILS 49.7 % (42.8-82.8); PLATELET COUNT 236 K/MM3 (134-434); RDW 13.8 % (11.6-15.6); WHITE BLOOD COUNT 5.9 K/mm3 (4.0-10.0)
[2017-05-06 01:15] LABS: ALBUMIN 3.5 g/dl (3.4-5.0); ANION GAP 8 (8-16); CALCIUM 8.6 mg/dL (8.5-10.1); CO2 28 mmol/L (21-32); CREATININE 0.7 mg/dL (0.55-1.02); GLUCOSE,RANDOM 118 mg/dL (74-106); SGOT/AST 18 U/L (15-37); SGPT/ALT 12 U/L (12-78)
[2017-05-06 01:16] LABS: ALK PHOS 118 U/L (45-117); BILIRUBIN,TOTAL 0.8 mg/dL (0.2-1.0); TOT PROT 7.5 g/dl (6.4-8.2)
== END 2017-05-06 01:51 | disposition home or self-care (01) ==
LOC: JER 22:40
DX: Z88.2 Allergy status to sulfonamides (principal); Z88.6 Allergy status to analgesic agent; Z88.1 Allergy status to other antibiotic agents; Z88.0 Allergy status to penicillin
CPT/HCPCS: 36415; 80053; 85025; 99282-25

== ENCOUNTER 2017-06-08 12:12 | Emergency (ER) | payer OTHER ==
[2017-06-08 12:24] VITALS: BMI 26.4
--- NOTE | 2017-06-08 14:14 | PDOC ---
History of Present Illness - General Chief Complaint: Vaginal Bleeding Stated Complaint: ABD PAIN Time Seen by Provider: 06/08/17 14:07 - History of Present Illness Initial Comments: 06/08/17 15:21 The patient is a 42 year old female with a history of fibromyalgia who presents for evaluation of vaginal discharge, vaginal spotting, lower abdominal cramping. The patient reports a 1 month history of occasional vaginal spotting with associated clear non-foul smelling discharge and mild lower abdominal discomfort. She states that her symptoms continued to persist prompting her presentation to the ED today. She states that she had a cone biopsy done 2 years ago and was told that she was high risk for cervical cancer. She states that she never followed up with those results and does not follow with an ob/ pediatric clinical dietician physician. She denies fevers, chills, SOB, chest pain, nausea, vomiting. She does endorse some occasional diarrhea over the past month as well. She reports that her LMP was 2 week prior with heavy flow. Past History - Past Medical History Allergies/Adverse Reactions: Allergies Allergy/AdvReac Type Severity Reaction Status Date / Time oxycodone HCl [From Percocet] Allergy Severe Swelling Verified 06/08/17 12:20 pseudoephedrine HCl Allergy Severe Elevated Verified 06/08/17 12:20 [From Sudafed] Blood Pressure Sulfa (Sulfonamide Allergy Severe Elevated Verified 06/08/17 12:20 Antibiotics) Blood [Sulfa(Sulfonamide Pressure Antibiotics)] Penicillins Allergy Unknown Verified 06/08/17 12:20 azithromycin [From Zithromax] Allergy Elevated Verified 06/08/17 12:20 Blood Pressure codeine [Codeine] AdvReac Mild Elevated Verified 06/08/17 12:20 Blood Pressure Home Medications: Ambulatory Orders Pregabalin [Lyrica -] 50 mg PO PRN PRN 12/25/16 COPD: No Psychiatric Problems: Yes (aNXIETY) Other medical history: Fibromalgia - Immunization History Immunization Up to Date: Yes - Suicide/Smoking/Psychosocial Hx Smoking Status: No Smoking History: Never smoked Have you smoked in the past 12 months: No Number of Cigarettes Smoked Daily: 0 Cigars Per Day: 0 Information on smoking cessation initiated: No Hx Alcohol Use: No Drug/Substance Use Hx: No Substance Use Type: None Hx Substance Use Treatment: No Review of Systems - Review of Systems Comments:: 06/08/17 15:26 Constitutional: No fevers, chills, fatigue, malaise HEENT: No Rhinorrhea, nasal congestion, visual changes Cardiovascular: No chest pain, syncope, palpitations, lightheadedness Respiratory: No Cough, SOB, Hemoptysis, Gastrointestinal: Lower abdominal discomfort. No Nausea, Vomiting, Constipation , Diarrhea, Melena Genitourinary: Vaginal spotting, vaginal discharge. No Dysuria, Frequency, Urgency, Hesitancy, Hematuria, Flank pain Musculoskeletal: No Myalgia, arthralgia Skin: No rashes, bruising, pallor Neurologic: No Headache, Dizziness, Numbness, Weakness, or Tingling Psychiatric: No Hallucinations. No SI or HI *Physical Exam - Vital Signs Last Vital Signs Temp Pulse Resp BP Pulse Ox 98.1 F 88 16 113/55 97 06/08/17 12:20 06/08/17 12:20 06/08/17 12:20 06/08/17 12:20 06/08/17 12:20 - Physical Exam Comments: 06/08/17 15:27 General Appearance: Nourished. No Apparent Distress HEENT: EOMI, SHAY. No Pharyngeal Erythema, Tonsillar Exudate, Tonsillar Erythema Neck: No Cervical Lymphadenopathy Respiratory/Chest: Lungs Clear, Normal Breath Sounds. No Crackles, Rales, Rhonchi, Wheezing Cardiovascular: Regular Rhythm, Regular Rate. No Murmur, Gallops, Rubs Gastrointestinal/Abdominal: Normal Bowel Sounds, Soft. No Guarding, Rebound, Tenderness Pelvic Exam: Normal external exam. Clear white discharge noted in the vaginal canal. Normal cervix with a closed cervical os. No CMT or adenexal tenderness on exam. Musculoskeletal: No CVA Tenderness Extremity: Normal Capillary Refill Integumentary: Normal Color, Dry, Warm Neurologic: Fully Oriented, Alert, Normal Mood/Affect, Normal Response, ED Treatment Course - LABORATORY CBC & Chemistry Diagram: 06/08/17 14:51 06/08/17 14:51 Medical Decision Making - Medical Decision Making 06/08/17 15:29 The patient is a 42 year old female with a history of fibromyalgia who presents for evaluation of vaginal discharge, vaginal spotting, lower abdominal cramping. Differential includes but is not limited to: Ovarian cyst, ovarian torsion, G/c infection, PID, metabolic derangement. Given the patient's symptoms over 1 month, we will obtain a cbc, cmp, ua, urine preg and pelvic US to evaluate for possible etiologies including ovarian torsion and ovarian cyst. We will also send a g/c swab to evaluate. We will continue to monitor and reassess. 06/08/17 18:05 cbc, cmp, ua are unremarkable. Urine preg is negative. Pelvic US demonstrates nablothian cysts, but otherwise are unremarkable as read by our radiologist. Given her negative work up we will prophylactically treat the patient with antibiotics here in the ED. The patient refused IM ceftriaxone. We will treat with 1gm of azithromycin. We are comfortable discharging the patient home at this time with pediatric clinical dietician follow up. The patient voiced understanding and is agreeable with the plan. *DC/Admit/Observation/Transfer Diagnosis at time of Disposition: Vaginal discharge - Discharge Dispostion Disposition: HOME Condition at time of disposition: Good - Referrals Referrals: Aicha Patricio MD [Primary Care Provider] - Antonio Nichols MD [Staff Physician] - - Patient Instructions Printed Discharge Instructions: DI for Pelvic Inflammatory Disease Additional Instructions: Please return to the ER if you experience concerning or worsening symptoms including fevers, worsening discharge, or worsening pain. Your lab results and image were normal here in the ER. Your ultrasound should cysts on your cervix which could be contributing to your pain. We gave you antibiotics here in the ER to cover for infection as well. We have provided you with a number of a epoxy specialist physician to contact for follow up. Please call to schedule a follow up appointment with the epoxy specialist physician within 1 week to discuss further management of your symptoms. - Post Discharge Activity
[2017-06-08 15:22] LABS: URINE APPEARANCE CLEAR; URINE BILIRUBIN NEGATIVE (NEGATIVE); URINE BLOOD NEGATIVE (NEGATIVE); URINE COLOR YELLOW; URINE GLUCOSE (UA) NEGATIVE (NEGATIVE); URINE KETONE NEGATIVE (NEGATIVE); URINE NITRITE NEGATIVE (NEGATIVE); URINE PROTEIN NEGATIVE (NEGATIVE); URINE UROBILINOGEN NEGATIVE mg/dL (0.2-1.0)
[2017-06-08 15:41] LABS: ALBUMIN 3.6 g/dl (3.4-5.0); ANION GAP 8 (8-16); CALCIUM 8.4 mg/dL (8.5-10.1); CO2 27 mmol/L (21-32); CREATININE 0.7 mg/dL (0.55-1.02); GLUCOSE,RANDOM 98 mg/dL (74-106); SGOT/AST 13 U/L (15-37); SGPT/ALT 11 U/L (12-78); TOT PROT 7.8 g/dl (6.4-8.2)
[2017-06-08 15:42] LABS: ALK PHOS 112 U/L (45-117); BASOPHIL 0.5 % (0-2.0); EOSINOPHIL 1.7 % (0-4.5); MCH 30.1 pg (25.7-33.7); MCHC 33.3 g/dl (32.0-36.0); MEAN CELL VOLUME 90.5 fl (80-96); NEUTROPHILS 67.1 % (42.8-82.8); PLATELET COUNT 226 K/MM3 (134-434); RDW 13.9 % (11.6-15.6); WHITE BLOOD COUNT 6.6 K/mm3 (4.0-10.0)
--- NOTE | 2017-06-08 16:28 | PDOC ---
Attending Attestation - Resident Resident Name: Simone Dillon - ED Attending Attestation I have performed the following: I have examined & evaluated the patient, The case was reviewed & discussed with the resident, I agree w/resident's findings & plan, Exceptions are as noted - HPI HPI: 06/08/17 16:26 42-year-old female with no severe past medical history presents with 1 month of vague lower abdominal/pelvic complaints with new clear discharge, no urinary complaints or GI complaints. No fevers or chills. Last sexually active about 2 months ago, unprotected sex with a man. No history of recurring STI, had abnormal colposcopy in the past but never followed up. - Physicial Exam PE: 06/08/17 16:27 Vital signs normal. Lower abdominal discomfort to palpation without guarding or rebound Pelvic as per resident, uncomfortable during exam, cultures sent No CVA tenderness - Medical Decision Making 06/08/17 16:27 Patient seen and evaluated with the resident. I agree with the overall evaluation, assessment, and management with the following summary of visit: 42-year-old female with pelvic discomfort for one month, nonspecific complaints without GI or urinary findings. Presentation could be concerning for PID, rule out UTI or pelvic/[place] pathology. Labs, urinalysis Transvaginal ultrasound Will treat empirically for STI [place] follow-up
[2017-06-08] MEDS ORDERED: AZITHROMYCIN 250 MG TABLET PO ONE (18:03)
[2017-06-08 18:10] LABS: URINE LEUK ESTERASE Negative (NEGATIVE)
[2017-06-08] MEDS ORDERED: AZITHROMYCIN 500 MG TABLET ONE (18:15)
[2017-06-08 18:31] VITALS: BP 132/84; PULSE 84; TEMP 98.7
== END 2017-06-08 18:31 | disposition home or self-care (01) ==
LOC: JER 12:12
DX: N89.8 Other specified noninflammatory disorders of vagina (principal); N88.8 Other specified noninflammatory disorders of cervix uteri; M79.7 Fibromyalgia
CPT/HCPCS: 36415; 76830-TC; 80053; 81003; 84703; 85025; 87491; 87591; 99282-25

== ENCOUNTER 2017-06-14 13:23 | Emergency (ER) | payer OTHER ==
[2017-06-14 13:33] VITALS: BMI 25.4
--- NOTE | 2017-06-14 13:50 | PDOC ---
History of Present Illness - General History Source: Patient Exam Limitations: No Limitations - History of Present Illness Initial Comments: 06/14/17 14:44 The patient is a year old 42 female with a significant PMH of anxiety and fibromyalgia who presents to the emergency department with dizziness beginning approximately two days ago. The patient reports feeling a general loss of balance for the past two days with associated nausea. The patient notes that her dizziness is aggravated by turning her head from side to side (left more than right) and changing body position. The patient reports having a similar dizziness episode about two years ago which resolved on its own. The patient also notes right sided sinus pressure with associated nasal congestion. The patient denies chest pain, shortness of breath, and headache. Denies fever, chills, vomit, diarrhea and constipation. Denies dysuria, frequency, urgency and hematuria. Allergies: NKA Past surgical history: None reported. Social history: No reported alcohol, cigarette, or drug use. <Iain Sharma - Last Filed: 06/14/17 15:55> <Jovana Nam - Last Filed: 06/14/17 17:41> - General Chief Complaint: Lightheaded Stated Complaint: DIZZINESS Time Seen by Provider: 06/14/17 13:50 Past History <Iain Sharma - Last Filed: 06/14/17 15:55> - Past Medical History COPD: No Psychiatric Problems: Yes (aNXIETY) - Immunization History Immunization Up to Date: Yes - Suicide/Smoking/Psychosocial Hx Smoking Status: No Smoking History: Never smoked Have you smoked in the past 12 months: No Number of Cigarettes Smoked Daily: 0 Cigars Per Day: 0 Information on smoking cessation initiated: No Hx Alcohol Use: No Drug/Substance Use Hx: No Substance Use Type: None Hx Substance Use Treatment: No <Jovana Nam - Last Filed: 06/14/17 17:41> - Past Medical History Allergies/Adverse Reactions: Allergies Allergy/AdvReac Type Severity Reaction Status Date / Time oxycodone HCl [From Percocet] Allergy Severe Swelling Verified 06/14/17 13:33 pseudoephedrine HCl Allergy Severe Elevated Verified 06/14/17 13:33 [From Sudafed] Blood Pressure Sulfa (Sulfonamide Allergy Severe Elevated Verified 06/14/17 13:33 Antibiotics) Blood [Sulfa(Sulfonamide Pressure Antibiotics)] Penicillins Allergy Unknown Verified 06/14/17 13:33 azithromycin [From Zithromax] Allergy Elevated Verified 06/14/17 13:33 Blood Pressure codeine [Codeine] AdvReac Mild Elevated Verified 06/14/17 13:33 Blood Pressure Home Medications: Ambulatory Orders Pregabalin [Lyrica -] 50 mg PO PRN PRN 12/25/16 Meclizine HCl 25 mg PO QID PRN #30 tab.chew 06/14/17 Review of Systems - Review of Systems Able to Perform ROS?: Yes Comments:: 06/14/17 14:45 GENERAL/CONSTITUTIONAL: No fever or chills. No weakness. HEAD, EYES, EARS, NOSE AND THROAT: (+) Right sided sinus pressure. (+) Nasal congestion. No change in vision. No ear pain or discharge. No sore throat. CARDIOVASCULAR: No chest pain or shortness of breath. RESPIRATORY: No cough, wheezing, or hemoptysis. GASTROINTESTINAL: (+) Nausea. No vomiting, diarrhea or constipation. GENITOURINARY: No dysuria, frequency, or change in urination. MUSCULOSKELETAL: No joint or muscle swelling or pain. No neck or back pain. SKIN: No rash NEUROLOGIC: (+) Dizziness. No headache, loss of consciousness, or change in strength/sensation. ENDOCRINE: No increased thirst. No abnormal weight change. HEMATOLOGIC/LYMPHATIC: No anemia, easy bleeding, or history of blood clots. ALLERGIC/IMMUNOLOGIC: No hives or skin allergy. <Iain Sharma - Last Filed: 06/14/17 15:55> *Physical Exam - Vital Signs Last Vital Signs Temp Pulse Resp BP Pulse Ox 98.2 F 99 H 18 115/77 100 06/14/17 13:31 06/14/17 13:31 06/14/17 13:31 06/14/17 13:31 06/14/17 13:31 - Physical Exam Comments: 06/14/17 15:55 GENERAL: Awake, alert, and fully oriented, in no acute distress HEAD: No signs of trauma EYES: (+) Slight horizontal nystagmus with lateral gaze. PERRLA, EOMI, sclera anicteric, conjunctiva clear. ENT: Auricles normal inspection, hearing grossly normal, nares patent, oropharynx clear without exudates. Moist mucosa NECK: Normal ROM, supple, no lymphadenopathy, JVD, or masses LUNGS: Breath sounds equal, clear to auscultation bilaterally. No wheezes, and no crackles ds. No guarding, no rebound. No masses EXTREMITIES: Normal range of motion, no edema. No clubbing or cyanosis. No cords, erythema, or tenderness HEART: Regular rate and rhythm, normal S1 and S2, no murmurs, rubs or gallops ABDOMEN: Soft, nontender, normoactive bowel sounds. No guarding, no rebound. No masses NEUROLOGICAL: Cranial nerves II through XII grossly intact. Normal speech. SKIN: Warm, Dry, normal turgor, no rashes or lesions noted. <Iain Sharma - Last Filed: 06/14/17 15:55> - Vital Signs Last Vital Signs Temp Pulse Resp BP Pulse Ox 98.2 F 99 H 18 115/77 100 06/14/17 13:31 06/14/17 13:31 06/14/17 13:31 06/14/17 13:31 06/14/17 13:31 <Jovana Nam - Last Filed: 06/14/17 17:41> ED Treatment Course - LABORATORY CBC & Chemistry Diagram: 06/14/17 16:45 06/14/17 16:45 <Jovana Nam - Last Filed: 06/14/17 17:41> Medical Decision Making - Medical Decision Making 06/14/17 15:01 Pt presents to the ED complaining of a one day history of vertigo that is made worse with turning her head or going from a sitting to lying position or vice versa. History of BPV--states that these symptoms are similar. Also complaining of R sided facial pain. Patient is neurologically intact, including cerebellar testing, and is able to ambulate with subjective dizziness but steady gait. Reports that she was unable to eat yesterday secondary to nausea, but is eating in the ED. Will check labs, treat with meclizine and reassess. Will likely discharge home if symptoms are improved. 06/14/17 17:38 total bilirubin is slightly elevated, but patient has no complaints of abdominal pain and no abdominal tenderness. Tolerated PO in the ED. Will discharge home with instructions to follow up with her PMD. <Jovana Nam - Last Filed: 06/14/17 17:41> *DC/Admit/Observation/Transfer - Attestations Scribe Attestion: 06/14/17 15:55 Documentation prepared by Iain Sharma, acting as certified medical records coder for Jovana Nam MD. <Iain Sharma - Last Filed: 06/14/17 15:55> - Discharge Dispostion Admit: No <Jovana Nam - Last Filed: 06/14/17 17:41> Diagnosis at time of Disposition: Vertigo - Discharge Dispostion Disposition: HOME Condition at time of disposition: Good - Prescriptions Prescriptions: Meclizine HCl 25 mg PO QID PRN #30 tab.chew PRN Reason: vertigo - Patient Instructions Printed Discharge Instructions: DI for Vertigo Additional Instructions: You should return to the ED for abdominal pain, persistent nausea and vomiting, other new or worsening symptoms. Return to the ED if you are so dizzy that you are unable to walk. You should follow up with your doctor--you had a liver test that is slightly abnormal, and it needs to be repeated. We have included the lab results with your discharge instructions.
[2017-06-14] MEDS ORDERED: SODIUM CHLORIDE 0.9% 1000 ML INFUS.BAG IV ONE (14:02)
[2017-06-14] MEDS ORDERED: ONDANSETRON 4 MG/2 ML VIAL IVPUSH ONE (14:02)
[2017-06-14] MEDS ORDERED: MECLIZINE HCL 25 MG TABLET (FP) PO ONE (14:02)
[2017-06-14] MEDS ORDERED: MECLIZINE HCL 25 MG TABLET (FP) ONE (16:48)
[2017-06-14] MEDS ORDERED: ONDANSETRON 4 MG/2 ML VIAL ONE (16:49)
[2017-06-14 17:09] LABS: BASOPHIL 0.4 % (0-2.0); EOSINOPHIL 0.8 % (0-4.5); MCH 30.2 pg (25.7-33.7); MCHC 33.5 g/dl (32.0-36.0); MEAN CELL VOLUME 90.2 fl (80-96); MEAN PLT VOLUME 7.8 fl (7.5-11.1); PLATELET COUNT 223 K/MM3 (134-434); WHITE BLOOD COUNT 7.3 K/mm3 (4.0-10.0)
[2017-06-14 17:18] LABS: ALBUMIN 3.6 g/dl (3.4-5.0); ANION GAP 8 (8-16); BILIRUBIN,TOTAL 1.7 mg/dL (0.2-1.0); CALCIUM 8.6 mg/dL (8.5-10.1); CO2 25 mmol/L (21-32); CREATININE 0.7 mg/dL (0.55-1.02); GLUCOSE,RANDOM 116 mg/dL (74-106); SGOT/AST 15 U/L (15-37)
[2017-06-14 17:23] LABS: ALK PHOS 107 U/L (45-117); SGPT/ALT 12 U/L (12-78)
[2017-06-14 17:45] VITALS: BP 110/72; PULSE 85; TEMP 98.1
== END 2017-06-14 17:53 | disposition home or self-care (01) ==
LOC: JER 13:23
DX: H81.11 Benign paroxysmal vertigo, right ear (principal)
CPT/HCPCS: 36415; 80053; 84703; 85025; 99282-25

== ENCOUNTER 2017-07-08 19:39 | Emergency (ER) | payer OTHER ==
--- NOTE | 2017-07-08 19:51 | PDOC ---
Rapid Medical Evaluation Time Seen by Provider: 07/08/17 19:48 Medical Evaluation: Allergies Allergy/AdvReac Type Severity Reaction Status Date / Time oxycodone HCl [From Percocet] Allergy Severe Swelling Verified 06/14/17 13:33 pseudoephedrine HCl Allergy Severe Elevated Verified 06/14/17 13:33 [From Sudafed] Blood Pressure Sulfa (Sulfonamide Allergy Severe Elevated Verified 06/14/17 13:33 Antibiotics) Blood [Sulfa(Sulfonamide Pressure Antibiotics)] Penicillins Allergy Unknown Verified 06/14/17 13:33 azithromycin [From Zithromax] Allergy Elevated Verified 06/14/17 13:33 Blood Pressure codeine [Codeine] AdvReac Mild Elevated Verified 06/14/17 13:33 Blood Pressure 07/08/17 19:48 I have performed a brief in-person evaluation of this patient. The patient presents with a chief complaint of: SOB x 3 days, worse with inspiration, fatigue, stuffy nose, denies travel, OCP, prolonged sitting, denies fever, chills, vomiting, diarrhea Pertinent physical exam findings: lungs ctab I have ordered the following: cxr, flu swab The patient will proceed to the ED for further evaluation. Discharge Disposition - Diagnosis Shortness of breath - Referrals - Patient Instructions - Post Discharge Activity
[2017-07-08 19:52] VITALS: BP 129/81; PULSE 97; TEMP 97.9; BMI 27.0
--- NOTE | 2017-07-08 20:24 | PDOC ---
History of Present Illness - General Chief Complaint: Cold Symptoms Stated Complaint: S.O.B Time Seen by Provider: 07/08/17 19:48 History Source: Patient - History of Present Illness Initial Comments: 07/08/17 20:34 42-year-old female complaining of nasal congestion and for 1 year and shortness of breath for the last 3 days. Patient reports that neighbor has been smoking more frequently and smoke has been coming into the apartment which makes her symptoms worse. denies OCP use, Past History - Past Medical History Allergies/Adverse Reactions: Allergies Allergy/AdvReac Type Severity Reaction Status Date / Time oxycodone HCl [From Percocet] Allergy Severe Swelling Verified 07/08/17 19:52 pseudoephedrine HCl Allergy Severe Elevated Verified 07/08/17 19:52 [From Sudafed] Blood Pressure Sulfa (Sulfonamide Allergy Severe Elevated Verified 07/08/17 19:52 Antibiotics) Blood [Sulfa(Sulfonamide Pressure Antibiotics)] Penicillins Allergy Unknown Verified 07/08/17 19:52 azithromycin [From Zithromax] Allergy Elevated Verified 07/08/17 19:52 Blood Pressure codeine [Codeine] AdvReac Mild Elevated Verified 07/08/17 19:52 Blood Pressure Home Medications: Ambulatory Orders Pregabalin [Lyrica -] 50 mg PO PRN PRN 12/25/16 Albuterol Sulfate Inhaler - [Ventolin HFA Inhaler -] 1 - 2 inh PO Q4H PRN #1 inhaler 07/08/17 Fluticasone Prop 0.05% Nasal [Flonase -] 1 - 2 spray NS BID #1 spray.pump COPD: No Psychiatric Problems: Yes (aNXIETY) Other medical history: fibromyalgia - Immunization History Immunization Up to Date: Yes - Suicide/Smoking/Psychosocial Hx Smoking Status: No Smoking History: Never smoked Have you smoked in the past 12 months: No Number of Cigarettes Smoked Daily: 0 Cigars Per Day: 0 Information on smoking cessation initiated: No Hx Alcohol Use: No Drug/Substance Use Hx: No Substance Use Type: None Hx Substance Use Treatment: No Review of Systems - Review of Systems Able to Perform ROS?: Yes Is the patient limited [place] proficient: No HEENTM: Yes: Nose Congestion Respiratory: Yes: Shortness of Breath. No: Symptoms reported, See HPI, Cough, Orthopnea, SOB with Exertion, SOB at Rest, Stridor, Wheezing, Productive cough, Hemoptysis, Other Cardiac (ROS): No: Symptoms Reported, See HPI, Chest Pain, Edema, Irregular Heart Rate, Lightheadedness, Palpitations, Syncope, Chest Tightness, Other *Physical Exam - Vital Signs Last Vital Signs Temp Pulse Resp BP Pulse Ox 97.9 F 97 H 19 129/81 99 07/08/17 19:49 07/08/17 19:49 07/08/17 19:49 07/08/17 19:49 07/08/17 19:49 - Physical Exam General Appearance: Yes: Appropriately Dressed Respiratory/Chest: positive: Lungs Clear, Normal Breath Sounds Cardiovascular: positive: Regular Rhythm, Regular Rate Gastrointestinal/Abdominal: positive: Normal Bowel Sounds, Soft Extremity: positive: Normal Capillary Refill, Normal Inspection, Normal Range of Motion Integumentary: positive: Normal Color, Dry, Warm Neurologic: positive: Fully Oriented, Alert, Normal Mood/Affect, Normal Response , Motor Strength 5/5 Progress Note - Progress Note Progress Note: NAsal congestion SOB P: Albuterol flonase chest xray negative official read pending. *DC/Admit/Observation/Transfer Diagnosis at time of Disposition: Shortness of breath - Discharge Dispostion Disposition: HOME - Prescriptions Prescriptions: Albuterol Sulfate Inhaler - [Ventolin HFA Inhaler -] 1 - 2 inh PO Q4H PRN #1 inhaler PRN Reason: Short Of Breath/Wheezing Fluticasone Prop 0.05% Nasal [Flonase -] 1 - 2 spray NS BID #1 spray.pump - Referrals Referrals: Aicha Patricio MD [Primary Care Provider] - - Patient Instructions Printed Discharge Instructions: How to Avoid a Cold or Flu Additional Instructions: take flonase as prescribed. take albuterol as prescribed. follow up with [facility] doctor as soon as possible. return to the ER if symptoms worsen. - Post Discharge Activity
[2017-07-08] MEDS ORDERED: ALBUTEROL SO4 2.5/IPRATROPIUM 0.5 INH SOL 3 ML VIAL.NEB. NEB ONE ×2 (20:34→20:38)
== END 2017-07-08 21:15 | disposition home or self-care (01) ==
LOC: JERFT 19:39
PROC: 3E0F7GC Introduction of Other Therapeutic Substance into Respiratory Tract, Via Natural or Artificial Opening (ICD-10-PCS; principal; 2017-07-08)
DX: R06.02 Shortness of breath (principal)
CPT/HCPCS: 71020-TC; 87804; 99281-25

== ENCOUNTER 2017-10-21 21:32 | Emergency (ER) | payer OTHER ==
[2017-10-21 21:39] VITALS: BP 120/79; PULSE 103; TEMP 98; BMI 26.0
--- NOTE | 2017-10-21 21:40 | PDOC ---
Rapid Medical Evaluation Time Seen by Provider: 10/21/17 21:34 Medical Evaluation: Allergies Allergy/AdvReac Type Severity Reaction Status Date / Time oxycodone HCl [From Percocet] Allergy Severe Swelling Verified 10/09/17 05:49 pseudoephedrine HCl Allergy Severe Elevated Verified 10/09/17 05:49 [From Sudafed] Blood Pressure Sulfa (Sulfonamide Allergy Severe Elevated Verified 10/09/17 05:49 Antibiotics) Blood [Sulfa(Sulfonamide Pressure Antibiotics)] Penicillins Allergy Unknown Verified 10/09/17 05:49 azithromycin [From Zithromax] Allergy Elevated Verified 10/09/17 05:49 Blood Pressure codeine [Codeine] AdvReac Mild Elevated Verified 10/09/17 05:49 Blood Pressure 10/21/17 21:34 The patient presents with a chief complaint of: chest pains for 2-3 hours. hx of fibromyalgia. States that the pain is on the left side and nothing makes it better or worse. Denies shortness of breath, palpitations I have performed a brief in-person evaluation of this patient; Pertinent physical exam findings: ambulatory, in no respiratory distress, ttp left chest, RRR, tachycardic I have ordered the following: EKG, CXR, CBC, CMP, Trop, PT/INR The patient will proceed to the ED for further evaluation.
[2017-10-21 22:31] LABS: BASO % 0.7 % (0-2.0); EOS % 1.9 % (0-4.5); HEMATOCRIT 40.8 % (32.4-45.2); HEMOGLOBIN 13.7 GM/dL (10.7-15.3); LYMPH % 27.6 % (8-40); MCH 30.9 pg (25.7-33.7); MCHC 33.7 g/dl (32.0-36.0); MEAN CELL VOLUME 91.7 fl (80-96); MEAN PLT VOLUME 8.2 fl (7.5-11.1); MONO % 11.8 % (3.8-10.2); PLATELET COUNT 216 K/MM3 (134-434); RBC 4.44 M/mm3 (3.60-5.2); RDW 14.3 % (11.6-15.6); WHITE BLOOD COUNT 7.8 K/mm3 (4.0-10.0)
[2017-10-21 22:58] LABS: URINE APPEARANCE CLOUDY; URINE BILIRUBIN NEGATIVE (<2.0 mg/dL); URINE BLOOD NEGATIVE (NEGATIVE); URINE COLOR LTYELLOW; URINE GLUCOSE (UA) 2+ (NEGATIVE); URINE KETONE NEGATIVE (NEGATIVE); URINE LEUK ESTERASE NEGATIVE (NEGATIVE); URINE NITRITE NEGATIVE (NEGATIVE); URINE PROTEIN NEGATIVE (NEGATIVE); URINE UROBILINOGEN NEGATIVE mg/dL (0.2-1.0)
[2017-10-21 23:05] LABS: ALBUMIN 3.7 g/dl (3.4-5.0); ALK PHOS 115 U/L (45-117); ANION GAP 12 (8-16); BILIRUBIN,TOTAL 0.7 mg/dL (0.2-1.0); BLOOD UREA NITROGEN 14 mg/dL (7-18); CHLORIDE 104 mmol/L (98-107); CO2 26 mmol/L (21-32); CREATININE 0.6 mg/dL (0.55-1.02); GLUCOSE,RANDOM 93 mg/dL (74-106); POTASSIUM 4.1 mmol/L (3.5-5.1); SGOT/AST 16 U/L (15-37); SGPT/ALT 10 U/L (12-78); SODIUM 142 mmol/L (136-145); TOT PROT 8.1 g/dl (6.4-8.2)
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
[2017-10-21 23:20] LABS: INR 1.03 (0.82-1.09); PROTHROMBIN TIME (PATIENT) 11.6 SEC (9.98-11.88)
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
--- NOTE | 2017-10-22 09:55 | EKG ---
Test Reason : Blood Pressure : / mmHG Vent. Rate : 095 BPM Atrial Rate : 095 BPM P-R Int : 170 ms QRS Dur : 096 ms QT Int : 354 ms P-R-T Axes : 068 -15 043 degrees QTc Int : 444 ms NORMAL SINUS RHYTHM POSSIBLE LEFT ATRIAL ENLARGEMENT INCOMPLETE RIGHT BUNDLE BRANCH BLOCK WHEN COMPARED WITH ECG OF 26-JAN-2017 21:50, NO SIGNIFICANT CHANGE WAS FOUND Confirmed by LILIA VASQUEZ MD ([id number]) on 10/22/2017 9:54:53 AM Referred By: Confirmed By:LILIA VASQUEZ MD
== END 2017-10-22 01:03 | disposition home or self-care (01) ==
LOC: JER 21:32
DX: R07.89 Other chest pain (principal); M79.7 Fibromyalgia; F41.9 Anxiety disorder, unspecified
CPT/HCPCS: 36415; 80053; 81003; 82550; 84484; 85025; 85610; 87086; 93005; 93010; 99282-25

== ENCOUNTER 2017-12-18 20:00 | Emergency (ER) | payer OTHER ==
[2017-12-18 20:07] VITALS: BP 101/74; PULSE 107; TEMP 98.7; BMI 26.8
--- NOTE | 2017-12-18 20:24 | PDOC ---
History of Present Illness <Vinod Evans - Last Filed: 12/18/17 23:14> - History of Present Illness Initial Comments: 42 year old female with PMH of fibromyalgia and right shoulder fracture presenting with right shoulder pain, paresthesias, and reported swelling for the pat two days. Denies recent trauma or strain to the right shoulder but states that she had an aching pain that started in her right shoulder that radiated down her arm along with paresthesias and possible swelling. Stats that this is similar to her fibromylagia but that typically presents all over her body. She has had occasional pain her right arm since that She did not try Tylenol, ibuprofen or her lyrica because she wanted it evaluated. Denies nausea , vomiting, headache, focal neuro deficit, diarrhea, chest pain, cough, visual symptoms, or recent illness. 12/18/17 20:52 <Jaqueline Gustafson - Last Filed: 12/19/17 07:18> - General Chief Complaint: Head/Neck problem Stated Complaint: R ARM NUMBNESS Time Seen by Provider: 12/18/17 20:23 Past History <Vinod Evans - Last Filed: 12/18/17 23:14> - Past Medical History COPD: No Psychiatric Problems: Yes (aNXIETY) Other medical history: fibromyalgia - Immunization History Immunization Up to Date: Yes - Suicide/Smoking/Psychosocial Hx Smoking Status: No Smoking History: Never smoked Have you smoked in the past 12 months: No Number of Cigarettes Smoked Daily: 0 Cigars Per Day: 0 Hx Alcohol Use: No Drug/Substance Use Hx: No Substance Use Type: None Hx Substance Use Treatment: No <Jaqueline Gustafson - Last Filed: 12/19/17 07:18> - Past Medical History Allergies/Adverse Reactions: Allergies Allergy/AdvReac Type Severity Reaction Status Date / Time oxycodone HCl [From Percocet] Allergy Severe Swelling Verified 12/18/17 20:05 pseudoephedrine HCl Allergy Severe Elevated Verified 12/18/17 20:05 [From Sudafed] Blood Pressure Sulfa (Sulfonamide Allergy Severe Elevated Verified 12/18/17 20:05 Antibiotics) Blood [Sulfa(Sulfonamide Pressure Antibiotics)] Penicillins Allergy Unknown Verified 12/18/17 20:05 azithromycin [From Zithromax] Allergy Elevated Verified 12/18/17 20:05 Blood Pressure codeine [Codeine] AdvReac Mild Elevated Verified 12/18/17 20:05 Blood Pressure Home Medications: Ambulatory Orders Ibuprofen [Motrin -] 800 mg PO TID #60 tablet 10/09/17 Paroxetine HCl [Paxil] 20 mg PO DAILY 10/09/17 hydrOXYzine PAMOATE [Vistaril -] 25 mg PO TID 10/09/17 Review of Systems - Review of Systems Constitutional: No: Chills, Diaphoresis, Fever, Loss of Appetite HEENTM: No: Eye Pain, Blurred Vision Respiratory: No: Cough, Orthopnea, Shortness of Breath Cardiac (ROS): No: Chest Pain, Irregular Heart Rate, Chest Tightness ABD/GI: No: Diarrhea, Nausea, Vomiting : No: Dysuria, Discharge, Frequency Musculoskeletal: Yes: Muscle Pain. No: Back Pain, Joint Pain, Joint Swelling Integumentary: No: Bruising, Lesions, Lumps Neurological: No: Headache, Numbness, Paresthesia Psychiatric: Yes: Other (fibromyalgia). No: Frequent Crying Endocrine: No: Increased Hunger, Increased Thirst Hematologic/Lymphatic: No: Anemia, Blood Clots, Easy Bleeding <Jaqueline Gustafson - Last Filed: 12/19/17 07:18> *Physical Exam - Vital Signs Last Vital Signs Temp Pulse Resp BP Pulse Ox 98.7 F 107 H 18 101/74 99 12/18/17 20:05 12/18/17 20:05 12/18/17 20:05 12/18/17 20:05 12/18/17 20:05 <Vinod Evans - Last Filed: 12/18/17 23:14> - Vital Signs Last Vital Signs Temp Pulse Resp BP Pulse Ox 98.7 F 107 H 18 101/74 99 12/18/17 20:05 12/18/17 20:05 12/18/17 20:05 12/18/17 20:05 12/18/17 20:05 - Physical Exam General Appearance: Yes: Nourished, Appropriately Dressed. No: Apparent Distress HEENT: positive: EOMI, SHAY, Normal ENT Inspection, Normal Voice Neck: positive: Trachea midline, Normal Thyroid, Supple. negative: Tender, Rigid Respiratory/Chest: positive: Lungs Clear, Normal Breath Sounds. negative: Chest Tender, Respiratory Distress, Accessory Muscle Use Cardiovascular: positive: Regular Rhythm, Regular Rate Gastrointestinal/Abdominal: positive: Normal Bowel Sounds, Flat, Soft. negative : Tender Musculoskeletal: positive: Normal Inspection. negative: CVA Tenderness Extremity: positive: Normal Capillary Refill, Normal Range of Motion, Tender ( tender right shoulder, bicep, and forearm without swelling or skin changes. ). 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-XII NML intact, Fully Oriented, Alert, Normal Mood/ Affect, Normal Response, Motor Strength 5/5 <Jaqueline Gustafson - Last Filed: 12/19/17 07:18> ED Treatment Course - ADDITIONAL ORDERS Additional order review: Laboratory Results 12/18/17 21:10 Urine HCG, Qual Negative - Medications Given in the ED: ED Medications Discontinued Medications Generic Name Dose Route Start Last Admin Trade Name Freq PRN Reason Stop Dose Admin Acetaminophen 1,000 mg 12/18/17 20:45 12/18/17 20:50 Tylenol - PO 12/18/17 20:46 1,000 mg ONCE ONE Administration <Vinod Evans - Last Filed: 12/18/17 23:14> Medical Decision Making - Medical Decision Making 12/18/17 23:14 EXAM: US Duplex Right Upper Extremity Veins CLINICAL HISTORY: ruq veins TECHNIQUE: Real-time duplex ultrasound scan of the right upper extremity veins integrating B-mode two-dimensional vascular structure, Doppler spectral analysis, color flow Doppler imaging and compression. COMPARISON: No relevant prior studies available. FINDINGS: DEEP VEINS: NO acute changes are demonstrated. No DVT in the internal jugular, subclavian, axillary, or brachial veins. SUPERFICIAL VEINS: No thrombus in the visualized superficial veins. Incomplete/ limited evaluation on this study. SOFT TISSUES: Unremarkable as visualized. IMPRESSION: Normal right upper extremity duplex venous ultrasound. Read by: Geovani Elizabeth MD <Vinod Evans - Last Filed: 12/18/17 23:14> - Medical Decision Making Patient appears well with non-specific right arm complaints. Right upper extremity scan negative for DVT so patient will be DC'd with appropriate follow up. 12/19/17 07:17 <Jaqueline Gustafson - Last Filed: 12/19/17 07:18> *DC/Admit/Observation/Transfer - Attestations Scribe Attestion: 12/18/17 23:15 Documentation prepared by Vinod Evans, acting as medical office coordinator for Iain Simeon MD. <Vinod Evans - Last Filed: 12/18/17 23:14> <Jaqueline Gustafson - Last Filed: 12/19/17 07:18> Diagnosis at time of Disposition: Arm pain Qualifiers: Laterality: right Qualified Code(s): M79.601 - Pain in right arm - Discharge Dispostion Disposition: HOME Condition at time of disposition: Stable - Referrals Referrals: Aicha Patricio MD [Primary Care Provider] - - Patient Instructions Printed Discharge Instructions: DI for Arm Pain Additional Instructions: Your ultrasound is negative for clots. Follow up with your doctor on Wednesday. Call to schedule an appointment.
[2017-12-18] MEDS ORDERED: ACETAMINOPHEN 500 MG TABLET (FP) PO ONE (20:45)
[2017-12-18] MEDS ORDERED: ACETAMINOPHEN 325 MG TABLET (FP) ONE (20:47)
--- NOTE | 2017-12-18 21:30 | PDOC ---
Attending Attestation - Resident Resident Name: Jaqueline Gustafson - ED Attending Attestation I have performed the following: I have examined & evaluated the patient, The case was reviewed & discussed with the resident, I agree w/resident's findings & plan, Exceptions are as noted - HPI HPI: 12/18/17 21:25 42 year old F c/ hx of fibromyalgia p/w right arm pain x 2 days. Pt reports that she has pain in her right upper arm and right forearm. Does not believe that she had trauma or injury to the area. States when she palpates her right forearm she feels pain. Also endorses subjective right hand numbness, not in a particular pattern. Denies any other neurological symptoms. No slurring of speech, dysarthria, weakness. States that palpation of muscles of Right forearm and R upper arm reproduces pain. Denies chest pain or SOB. Pt does not think it's related to her fibromyalgia. Came into the ED for an evaluation. - Physicial Exam PE: 12/18/17 21:28 GENERAL: Awake, alert, and fully oriented, in no acute distress. HEAD: No signs of trauma EYES: PERRLA, EOMI, sclera anicteric, conjunctiva clear ENT: Auricles normal inspection, hearing grossly normal, nares patent NECK: Normal ROM, supple EXTREMITIES: Normal range of motion, no edema. No clubbing or cyanosis. No cords, erythema, or tenderness RUE: 2+ radial pulse. 5/5 strength in the median/radian/ulnar nerve distribution. Palpation of right biceps and triceps, in addition to the forearm , reproduces the pain. FROM of right shoulder and right elbow and right wrist. Full extension and flexion of digits. < 2 sec cap refill. Subjective numbness to right hand. NEUROLOGICAL: Cranial nerves II through XII grossly intact. Normal speech, normal gait SKIN: Warm, Dry, normal turgor, no rashes or lesions noted. - Medical Decision Making 12/18/17 21:30 Vital Signs Temp Pulse Resp BP Pulse Ox 98.7 F 107 H 18 101/74 99 12/18/17 20:05 12/18/17 20:05 12/18/17 20:05 12/18/17 20:05 12/18/17 20:05 Will obtain a right upper extremity duplex to r/o DVT. Though her symptoms are atypical, some differentials to consider are peripheral neuropathy vs. musculoskeletal. The patient is undergoing an outpatient workup for diabetes as well. However, if the ultrasound is negative, will treat as musculoskeletal. Will pursue an outpatient workup for the subjective numbness sensation. Either way, if workup is unremarkable, pt can be followed up as an outpatient with Dr. Aicha Patricio 12/18/17 23:11 Ultrasound negative for DVT
--- NOTE | 2017-12-18 23:17 | PDOC ---
*Physical Exam - Vital Signs Last Vital Signs Temp Pulse Resp BP Pulse Ox 98.7 F 107 H 18 101/74 99 12/18/17 20:05 12/18/17 20:05 12/18/17 20:05 12/18/17 20:05 12/18/17 20:05 ED Treatment Course - ADDITIONAL ORDERS Additional order review: Laboratory Results 12/18/17 21:10 Urine HCG, Qual Negative - RADIOLOGY Radiology Studies Ordered: Category Date Time Status DUPLEX VASCUL US-1 ARM [US] Stat Ultrasound 12/18/17 21:20 Taken - Medications Given in the ED: ED Medications Discontinued Medications Generic Name Dose Route Start Last Admin Trade Name Freq PRN Reason Stop Dose Admin Acetaminophen 1,000 mg 12/18/17 20:45 12/18/17 20:50 Tylenol - PO 12/18/17 20:46 1,000 mg ONCE ONE Administration *DC/Admit/Observation/Transfer Diagnosis at time of Disposition: Arm pain Qualifiers: Laterality: right Qualified Code(s): M79.601 - Pain in right arm - Discharge Dispostion Disposition: HOME Condition at time of disposition: Stable Decision to Admit order: No - Referrals Referrals: Aicha Patricio MD [Primary Care Provider] - - Patient Instructions Printed Discharge Instructions: DI for Arm Pain Additional Instructions: Your ultrasound is negative for clots. Follow up with your doctor on Wednesday. Call to schedule an appointment. - Post Discharge Activity
== END 2017-12-18 23:17 | disposition home or self-care (01) ==
LOC: JER 20:00
DX: M79.601 Pain in right arm (principal); M79.7 Fibromyalgia
CPT/HCPCS: 84703; 93971; 99282-25

== ENCOUNTER 2018-06-01 21:26 | Emergency (ER) | payer OTHER ==
[2018-06-01 21:32] VITALS: BP 129/82; PULSE 90; TEMP 98.3; BMI 26.4
[2018-06-01] MEDS ORDERED: ONDANSETRON *ODT* 4 MG TABLET SL ONE (21:40)
[2018-06-01] MEDS ORDERED: ACETAMINOPHEN 500 MG TABLET (FP) PO ONE (21:40)
[2018-06-01] MEDS ORDERED: ACETAMINOPHEN 500 MG TABLET (FP) ONE (21:43)
[2018-06-01] MEDS ORDERED: ONDANSETRON *ODT* 4 MG TABLET ONE (21:43)
--- NOTE | 2018-06-01 21:43 | PDOC ---
History of Present Illness - General Chief Complaint: Nausea Stated Complaint: HEADACHE/CRAMPS Time Seen by Provider: 06/01/18 21:37 - History of Present Illness Initial Comments: 06/01/18 21:41 43-year-old female with a past medical history significant for anxiety presents for evaluation of nausea and headache after taking fish oil supplementation. She states over the last 4 days she's taken 2000 mg daily as directed but it started to make her sick and developed a headache. Past History - Past Medical History Allergies/Adverse Reactions: Allergies Allergy/AdvReac Type Severity Reaction Status Date / Time oxycodone HCl [From Percocet] Allergy Severe Swelling Verified 06/01/18 21:32 pseudoephedrine HCl Allergy Severe Elevated Verified 06/01/18 21:32 [From Sudafed] Blood Pressure Sulfa (Sulfonamide Allergy Severe Elevated Verified 06/01/18 21:32 Antibiotics) Blood [Sulfa(Sulfonamide Pressure Antibiotics)] Penicillins Allergy Unknown Verified 06/01/18 21:32 azithromycin [From Zithromax] Allergy Elevated Verified 06/01/18 21:32 Blood Pressure codeine [Codeine] AdvReac Mild Elevated Verified 06/01/18 21:32 Blood Pressure Home Medications: Ambulatory Orders NK [No Known Home Medication] 06/01/18 COPD: No DVT: No Dementia: No Diabetes: No Psychiatric Problems: Yes (Anxiety) - Immunization History Immunization Up to Date: Yes - Suicide/Smoking/Psychosocial Hx Smoking Status: No Smoking History: Never smoked Have you smoked in the past 12 months: No Number of Cigarettes Smoked Daily: 0 Cigars Per Day: 0 Hx Alcohol Use: No Drug/Substance Use Hx: No Substance Use Type: None Hx Substance Use Treatment: No Review of Systems - Review of Systems ABD/GI: Yes: Nausea Neurological: Yes: Headache *Physical Exam - Vital Signs Last Vital Signs Temp Pulse Resp BP Pulse Ox 98.3 F 90 18 129/82 100 06/01/18 21:28 06/01/18 21:28 06/01/18 21:28 06/01/18 21:28 06/01/18 21:28 - Physical Exam Comments: 06/01/18 21:41 HEAD: NC/AT EYES: Conjuntiva clear Ears: Canals and TM's normal NOSE: No d/c THROAT: Moist mucous membrances, oral pharanx clear, uvula midline NECK: Supple without adenopathy CARDIAC: S1 S2 LUNGS: CTA Full and Equal breath sounds ABDOMEN: Soft NT ND MS: Full ROM in all joints without edema NEUROLOGIC: No gross sensory or motor deficits, NVID SKIN: Normal color and temperature no lesions or rashes Medical Decision Making - Medical Decision Making 06/01/18 21:41 Treat her symptoms and have have advised her to discontinue the fish oil supplementation *DC/Admit/Observation/Transfer Diagnosis at time of Disposition: Nausea, Headache - Discharge Dispostion Disposition: HOME Condition at time of disposition: Stable Decision to Admit order: No - Referrals Referrals: Aicha Patricio MD [Primary Care Provider] - - Patient Instructions Printed Discharge Instructions: DI for Nausea -- Adult, DI for Headache Additional Instructions: Return to the emergency room should symptoms persist otherwise follow-up with your primary care physician in one to 2 days for further evaluation and treatment options. Discontinue the Fish oil as this may be causing her symptoms. - Post Discharge Activity
== END 2018-06-01 22:05 | disposition home or self-care (01) ==
LOC: JERFT 21:26
DX: R51 Headache (principal); R11.0 Nausea; F41.9 Anxiety disorder, unspecified
CPT/HCPCS: 99281-25; Q0162

== ENCOUNTER 2018-07-03 01:29 | Emergency (ER) | payer OTHER ==
--- NOTE | 2018-07-03 01:36 | PDOC ---
History of Present Illness - General Stated Complaint: UTERUS PAIN Time Seen by Provider: 07/03/18 01:31 - History of Present Illness Initial Comments: 07/03/18 01:35 43 yo F with h/o anxiety who p/w suprpapubic pain. PAtient reports acute onset of sharp, spasmodic, suprpapubic pain, with no identifiable triggers or alleviators 1 hour [employer]ZZ[employer] IN[employer]. Patient also endorses intermittent vaginal bleeding x 1 day, with clotting. LMP x 2 months ago. Denies h/o similar symptoms. + loose stools x 3 days. Patient sexually active with partner. Denies h/o STIs. Not on OCPs. Patient denies N/V, F/C, CP, SOB, urinary complaints, abdominal pain, vaginal discharge/burning/itching, constipation, BPR, lightheadedness, weakness, sensory changes. PMHx: as noted above. x 3, tubal ligation ROS: as noted SHx: Denies IVDA, Etoh, tobacco use. Allergies:Oxycodone, Sulfa medications Past History - Past Medical History Allergies/Adverse Reactions: Allergies Allergy/AdvReac Type Severity Reaction Status Date / Time oxycodone HCl [From Percocet] Allergy Severe Swelling Verified 07/03/18 03:08 pseudoephedrine HCl Allergy Severe Elevated Verified 07/03/18 03:08 [From Sudafed] Blood Pressure Sulfa (Sulfonamide Allergy Severe Elevated Verified 07/03/18 03:08 Antibiotics) Blood [Sulfa(Sulfonamide Pressure Antibiotics)] Penicillins Allergy Unknown Verified 07/03/18 03:08 azithromycin [From Zithromax] Allergy Elevated Verified 07/03/18 03:08 Blood Pressure codeine [Codeine] AdvReac Mild Elevated Verified 07/03/18 03:08 Blood Pressure Home Medications: Ambulatory Orders Simethicone [Gas Relief 80] 80 mg PO DAILY #20 tab.chew 07/03/18 COPD: No DVT: No Dementia: No Diabetes: No Psychiatric Problems: Yes (Anxiety) - Immunization History Immunization Up to Date: Yes - Suicide/Smoking/Psychosocial Hx Smoking Status: No Smoking History: Never smoked Have you smoked in the past 12 months: No Number of Cigarettes Smoked Daily: 0 Cigars Per Day: 0 Hx Alcohol Use: No Drug/Substance Use Hx: No Substance Use Type: None Hx Substance Use Treatment: No Review of Systems - Review of Systems Comments:: 07/03/18 01:35 GENERAL/CONSTITUTIONAL: No fever or chills. No weakness. HEAD, EYES, EARS, NOSE AND THROAT: No change in vision. No ear pain or discharge. No sore throat. CARDIOVASCULAR: No chest pain or shortness of breath RESPIRATORY: No cough, wheezing, or hemoptysis. GASTROINTESTINAL: No nausea, vomiting, diarrhea or constipation. GENITOURINARY: + Suprapubic pain. No dysuria, frequency, or change in urination. MUSCULOSKELETAL: No joint or muscle swelling or pain. No neck or back pain. SKIN: No rash NEUROLOGIC: No headache, vertigo, loss of consciousness, or change in strength/ sensation. ENDOCRINE: No increased thirst. No abnormal weight change HEMATOLOGIC/LYMPHATIC: No anemia, easy bleeding, or history of blood clots. ALLERGIC/IMMUNOLOGIC: No hives or skin allergy. \ *Physical Exam - Physical Exam Comments: 07/03/18 01:36 GENERAL: Awake, alert, and fully oriented, in no acute distress HEAD: No signs of trauma, normocephalic, atraumatic EYES: PERRLA, EOMI, sclera anicteric, conjunctiva clear ENT: Hearing grossly normal, nares patent, oropharynx clear without exudates. Moist mucosa NECK: Normal ROM, supple, no lymphadenopathy, JVD, or masses LUNGS: No distress, speaks full sentences, clear to auscultation bilaterally HEART: Regular rate and rhythm, normal S1 and S2, no murmurs, rubs or gallops, peripheral pulses normal and equal bilaterally. ABDOMEN: + Suprapubic ttp. Soft, NDS, normoactive bowel sounds. No guarding, no rebound. No masses. Neg CVA ttp. GENITOURINARY: Nml appearing external genitalia, blood in vaginal vault (pooling ), with absent clotting, cervical os closed absent discharge, absent CMT on BM, absent adenexal ttp. EXTREMITIES : Normal inspection, Normal range of motion, no edema. No clubbing or cyanosis. SKIN: Warm, Dry, normal turgor, no rashes or lesions noted ED Treatment Course - LABORATORY CBC & Chemistry Diagram: 07/03/18 02:05 07/03/18 02:05 Medical Decision Making - Medical Decision Making 07/03/18 02:32 43 yo F with h/o anxiety who p/w suprapubic pain, and vaginal bleeding. BP 141/ 109, HR 110, vitals otherwise unremarkable, AF. + Suprpapubic ttp. Will consider vs. GI source. Ddx: DUB, cystitis, PID, ectopic , ovarian cyst rupture, ovarian torsion, nephrolithiasis, pyelonephritis, colitis , enteritis ED Course: CBC,CMP, HCG, UA Toradol 07/03/18 03:03 Patient instructed to follow up with [facility] and NSAID use Return precautions 07/03/18 03:39 CBC,CMP: Unremarkable 07/03/18 04:08 UA: 3+ blood, RBC 290 stable for d/c *DC/Admit/Observation/Transfer Diagnosis at time of Disposition: Amenorrhea - Discharge Dispostion Condition at time of disposition: Stable - Prescriptions Prescriptions: Simethicone [Gas Relief 80] 80 mg PO DAILY #20 tab.chew - Referrals Referrals: Aicha Patricio MD [Primary Care Provider] - - Patient Instructions Printed Discharge Instructions: DI for Abnormal Uterine Bleeding Additional Instructions: Please return to the emergency department with any new or worsening symptoms or concerns. Please follow up with your primary care physician within 72 hours. Please follow up with [facility] within 24-48 hours. Can take Motrin as needed for pain 600 mg every 4-6 hours. Return to ED with worsening bleeding, abdominal pain, or other worsening symptoms. - Post Discharge Activity - Attestations Physician Attestion: 07/03/18 01:36 I attest to the information provided in this note.
[2018-07-03 01:45] VITALS: BP 141/109; PULSE 110; TEMP 97.4; BMI 26.4
--- NOTE | 2018-07-03 01:50 | PDOC ---
Attending Attestation - Resident Resident Name: Carlos Zuñiga - ED Attending Attestation I have performed the following: I have examined & evaluated the patient, The case was reviewed & discussed with the resident, I agree w/resident's findings & plan - HPI HPI: 07/03/18 03:30 Pt comes with suprapubic pain and she states that she has irreg periods. She is currenly vag bleeding, mild amounts, os closed. Pt has Pt has no fever and no chills. 07/03/18 03:40 Pt states that she has never had pain like this in the past. She states that the pain is over her c section scar - last csection was 14 years ago, and pt does no heavy lifting, due to the fibromylagia in her back.. Pt has gassy abd sounds. She states that she has been moving bowels daily, some diarrhea every day. This is all likely gas pain. - Physicial Exam PE: 07/03/18 03:31 Agree with resident exam - Medical Decision Making 07/03/18 03:31 Labs are WNL; T bili is 1.2 Pt has had a T bili of 1.7 in the past. She will be discharged home once her UA comes back.
[2018-07-03] MEDS ORDERED: KETOROLAC TROMETHAMINE 30 MG/1 ML VIAL IVPUSH ONE (01:52)
[2018-07-03] MEDS ORDERED: KETOROLAC TROMETHAMINE 30 MG/1 ML VIAL ONE (02:22)
[2018-07-03 02:28] LABS: BASO % 0.3 % (0-2.0); EOS % 2.8 % (0-4.5); HEMATOCRIT 39.8 % (32.4-45.2); HEMOGLOBIN 13.5 GM/dL (10.7-15.3); MCH 31.2 pg (25.7-33.7); MCHC 33.9 g/dl (32.0-36.0); MEAN PLT VOLUME 7.7 fl (7.5-11.1); MONO % 9.9 % (3.8-10.2); PLATELET COUNT 243 K/MM3 (134-434); RBC 4.33 M/mm3 (3.60-5.2); RDW 14.3 % (11.6-15.6); WHITE BLOOD COUNT 9.1 K/mm3 (4.0-10.0)
[2018-07-03 03:20] LABS: ALBUMIN 3.8 g/dl (3.4-5.0); ALK PHOS 117 U/L (45-117); ANION GAP 12 MMOL/L (8-16); BILIRUBIN,TOTAL 1.2 mg/dL (0.2-1); BLOOD UREA NITROGEN 15 mg/dL (7-18); CALCIUM 8.7 mg/dL (8.5-10.1); CHLORIDE 102 mmol/L (98-107); CO2 27 mmol/L (21-32); CREATININE 0.8 mg/dL (0.55-1.3); GLUCOSE,RANDOM 116 mg/dL (74-106); POTASSIUM 3.6 mmol/L (3.5-5.1); SGOT/AST 19 U/L (15-37); SGPT/ALT 13 U/L (13-61); SODIUM 140 mmol/L (136-145); TOT PROT 8.4 g/dl (6.4-8.2)
[2018-07-03] MEDS ORDERED: MAG HYDROX/AL HYDROX/SIMETH 30 ML UNIT-DOSE CUP PO ONE (03:39)
[2018-07-03 03:59] LABS: URINE APPEARANCE SLCLOUDY; URINE BILIRUBIN NEGATIVE (<2.0 mg/dL); URINE COLOR YELLOW; URINE GLUCOSE (UA) 1+ (NEGATIVE); URINE KETONE NEGATIVE (NEGATIVE); URINE LEUK ESTERASE NEGATIVE (NEGATIVE); URINE NITRITE NEGATIVE (NEGATIVE); URINE PROTEIN NEGATIVE (NEGATIVE); URINE UROBILINOGEN NEGATIVE mg/dL (0.2-1.0)
[2018-07-03 04:06] LABS: URINE MUCUS RARE
[2018-07-03] MEDS ORDERED: MAG HYDROX/AL HYDROX/SIMETH 30 ML UNIT-DOSE CUP ONE (04:33)
== END 2018-07-03 04:48 | disposition home or self-care (01) ==
LOC: JER 01:29
PROC: 3E0333Z Introduction of Anti-inflammatory into Peripheral Vein, Percutaneous Approach (ICD-10-PCS; principal; 2018-07-03)
DX: N91.2 Amenorrhea, unspecified (principal); F41.9 Anxiety disorder, unspecified
CPT/HCPCS: 36415; 80053; 81003; 81015; 84703; 85025; 96374; 99282-25

== ENCOUNTER 2018-09-09 18:21 | Emergency (ER) | payer OTHER ==
--- NOTE | 2018-09-09 19:01 | PDOC ---
Rapid Medical Evaluation Time Seen by Provider: 09/09/18 18:59 Medical Evaluation: Allergies Allergy/AdvReac Type Severity Reaction Status Date / Time oxycodone HCl [From Percocet] Allergy Severe Swelling Verified 07/03/18 03:08 pseudoephedrine HCl Allergy Severe Elevated Verified 07/03/18 03:08 [From Sudafed] Blood Pressure Sulfa (Sulfonamide Allergy Severe Elevated Verified 07/03/18 03:08 Antibiotics) Blood [Sulfa(Sulfonamide Pressure Antibiotics)] Penicillins Allergy Unknown Verified 07/03/18 03:08 azithromycin [From Zithromax] Allergy Elevated Verified 07/03/18 03:08 Blood Pressure codeine [Codeine] AdvReac Mild Elevated Verified 07/03/18 03:08 Blood Pressure 09/09/18 18:59 I performed a brief in-person evaluation of this patient. Chief complaint: "Fibromyalgia pain" and fall, pain on left side Pertinent physical exam findings: Tenderness over left hip, right shoulder. No spinal vertebral tenderness. I have ordered the following: Shoulder xray, hip xray. Patient will proceed to the ED for further evaluation. Discharge Disposition - Diagnosis Fall Qualifiers: Encounter type: initial encounter Qualified Code(s): W19.XXXA - Unspecified fall, initial encounter - Referrals - Patient Instructions - Post Discharge Activity
[2018-09-09 19:04] VITALS: BP 110/72; PULSE 99; TEMP 97.4; BMI 26.4
--- NOTE | 2018-09-09 21:29 | PDOC ---
History of Present Illness - General Chief Complaint: Injury Stated Complaint: FALL Time Seen by Provider: 09/09/18 18:59 History Source: Patient Exam Limitations: No Limitations - History of Present Illness Initial Comments: 09/09/18 21:24 HISTORY OF PRESENT ILLNESS: This is a 43-year-old woman with past medical history of fibromyalgia presents emergency Department with right shoulder and left buttock pain status post fall out of bed. Patient states 5 days ago she rolled off the right side of her bed falling onto an extended right arm striking her buttock on the bed frame on the way to the floor. Patient was immediately ambulatory was concerned that the pain has not resolved in 5 days. She denies any numbness or tingling in relief of pain using prescribed Motrin. No recent travel or sick contacts. PAST MEDICAL HISTORY: see HPI SURGICAL HISTORY: Denies ALLERGIES: oxycodone, sudafed, Sulfa drugs, penicillin, azithromycin, codeine REVIEW OF SYSTEMS General/Constitutional: Denies fever or chills. Denies weakness, weight change. HEENT: Denies change in vision. Denies ear pain or discharge. Denies sore throat. Cardiovascular: Denies chest pain or shortness of breath. Respiratory: Denies cough, wheezing, or hemoptysis. Gastrointestinal: Denies nausea, vomiting, diarrhea or constipation. Denies rectal bleeding. Genitourinary: Denies dysuria, frequency, or change in urination. Musculoskeletal: see hpi Skin and breasts: Denies rash or easy bruising. Neurologic: Denies headache, vertigo, loss of consciousness, or loss of sensation. Psychiatric: Denies depression or anxiety. Endocrine: Denies increased thirst. Denies abnormal weight change. Hematologic/Lymphatic: Denies anemia, easy bleeding, or history of blood clots. Allergic/Immunologic: Denies hives or skin allergy. Denies latex allergy. PHYSICAL EXAM General Appearance: Well-appearing, appropriately dressed. No apparent distress , no intoxication. HEENT: EOMI, PERRLA, normal ENT inspection, normal voice, TMs normal, pharynx normal. No conjunctival pallor. No photophobia, scleral icterus. Neck: Supple. Trachea midline. No tenderness, rigidity, carotid bruit, stridor , lymphadenopathy, or thyromegaly. Respiratory/Chest: Lungs CTAB. No shortness of breath, chest tenderness, respiratory distress, accessory muscle use. No crackles, rales, rhonchi, stridor , wheezing, dullness Cardiovascular: RRR. S1, S2. No JVD, murmur, bradycardia, tachycardia. Vascular Pulses: Dorsalis-Pedis (R): 2+, Dorsalis-Pedis (L): 2+ Gastrointestinal/Abdominal: Normal bowel sounds. Abdomen soft, non-distended. No tenderness or rebound tenderness. No organomegaly, pulsatile mass, guarding, hernia, hepatomegaly, splenomegaly. Lymphatic: No adenopathy, tenderness. Musculoskeletal/Extremities: Normal inspection. FROM of all extremities, normal capillary refill. Pelvis Stable. No CVA tenderness. No tenderness to extremities, pedal edema, swelling, erythema or deformity. Integumentary: Appropriate color, dry, warm. No cyanosis, erythema, jaundice or rash. 4 cm x 3 cm ovoid area of ecchymosis present to the left buttock. 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 Fully oriented, alert. Appropriate mood/affect. Motor strength 5/5. No appreciable EOM palsy, facial droop or sensory deficit. Past History - Past Medical History Allergies/Adverse Reactions: Allergies Allergy/AdvReac Type Severity Reaction Status Date / Time oxycodone HCl [From Percocet] Allergy Severe Swelling Verified 09/09/18 18:59 pseudoephedrine HCl Allergy Severe Elevated Verified 09/09/18 18:59 [From Sudafed] Blood Pressure Sulfa (Sulfonamide Allergy Severe Elevated Verified 09/09/18 18:59 Antibiotics) Blood [Sulfa(Sulfonamide Pressure Antibiotics)] Penicillins Allergy Unknown Verified 09/09/18 18:59 azithromycin [From Zithromax] Allergy Elevated Verified 09/09/18 18:59 Blood Pressure codeine [Codeine] AdvReac Mild Elevated Verified 09/09/18 18:59 Blood Pressure Home Medications: Ambulatory Orders Ibuprofen [Motrin -] 600 mg PO TID PRN 09/09/18 hydrOXYzine PAMOATE [Vistaril -] 25 mg PO TID 09/09/18 COPD: No DVT: No Dementia: No Diabetes: No Psychiatric Problems: Yes (Anxiety) Other medical history: fibromyalgia - Immunization History Immunization Up to Date: Yes - Suicide/Smoking/Psychosocial Hx Smoking Status: No Smoking History: Unknown if ever smoked Have you smoked in the past 12 months: No Number of Cigarettes Smoked Daily: 0 Cigars Per Day: 0 Hx Alcohol Use: No Drug/Substance Use Hx: No Substance Use Type: None Hx Substance Use Treatment: No *Physical Exam - Vital Signs Last Vital Signs Temp Pulse Resp BP Pulse Ox 97.4 F L 99 H 22 H 110/72 100 09/09/18 19:02 09/09/18 19:02 09/09/18 19:02 09/09/18 19:02 09/09/18 19:02 Moderate Sedation - Procedure Monitoring Vital Signs: Procedure Monitoring Vital Signs Temperature 97.4 F L 09/09/18 19:02 Pulse Rate 99 H 09/09/18 19:02 Respiratory Rate 22 H 09/09/18 19:02 Blood Pressure 110/72 09/09/18 19:02 O2 Sat by Pulse Oximetry (%) 100 09/09/18 19:02 ED Treatment Course - ADDITIONAL ORDERS Additional order review: Laboratory Results 09/09/18 19:28 Urine HCG, Qual Negative Medical Decision Making - Medical Decision Making 09/09/18 21:24 A/P: 43-year-old woman with right shoulder and left buttock pain status post fall off bed X-rays performed and aren't me as read by me: No acute fractures or dislocations of the pelvis or shoulder. Tylenol 975 mg orally now Discharge home *DC/Admit/Observation/Transfer Diagnosis at time of Disposition: Fall Qualifiers: Encounter type: initial encounter Qualified Code(s): W19.XXXA - Unspecified fall, initial encounter Shoulder pain, right Qualifiers: Chronicity: acute Qualified Code(s): M25.511 - Pain in right shoulder Contusion Qualifiers: Encounter type: initial encounter Contusion area: hip Laterality: left Qualified Code(s): S70.02XA - Contusion of left hip, initial encounter - Discharge Dispostion Disposition: HOME Condition at time of disposition: Stable Decision to Admit order: No - Referrals Referrals: Aicha Patricio MD [Primary Care Provider] - - Patient Instructions Additional Instructions: Take Tylenol or Motrin as needed for pain. Follow manufacturers instructions for appropriate dosage. Apply ice for 20 minutes and removed for at least 20 minutes before reapplying the ice. Whenever possible keep her foot elevated to decrease swelling to your ankle. Return to emergency department for numbness or tingling to the foot or hands, worsening pain, or any other concerns. Thank you very much for choosing us to provide your emergent healthcare needs. - Post Discharge Activity
[2018-09-09] MEDS ORDERED: ACETAMINOPHEN 500 MG TABLET (FP) PO ONE (21:30)
[2018-09-09] MEDS ORDERED: ACETAMINOPHEN 500 MG TABLET (FP) ONE (21:32)
== END 2018-09-09 21:38 | disposition home or self-care (01) ==
LOC: JERFT 18:21
DX: S70.02XA Contusion of left hip, initial encounter (principal); W06.XXXA Fall from bed, initial encounter; Y93.89 Activity, other specified; Y92.032 Bedroom in apartment as the place of occurrence of the external cause; M79.7 Fibromyalgia
CPT/HCPCS: 73030-TC-RT-FY; 73523-TC-FY; 84703; 99281-25

== ENCOUNTER 2018-09-27 19:43 | Observation (INO) | payer OTHER ==
[2018-09-27 20:12] VITALS: BMI 25.6
[2018-09-27] MEDS ORDERED: ACETAMINOPHEN 325 MG TABLET (FP) PO ONE (21:13)
[2018-09-27] MEDS ORDERED: MECLIZINE HCL 25 MG TABLET (FP) PO ONE (21:13)
[2018-09-27] MEDS ORDERED: KETOROLAC TROMETHAMINE 60 MG/2 ML VIAL IM ONE (21:13)
[2018-09-27] MEDS ORDERED: ACETAMINOPHEN 1000 MG/100 ML VIAL (NON FORMULARY) IVPB ONE (21:25)
[2018-09-27] MEDS ORDERED: ACETAMINOPHEN INJECTION 100 ML IVPB ONE (21:26)
[2018-09-27] MEDS ORDERED: MECLIZINE HCL 25 MG TABLET (FP) ONE (21:26)
--- NOTE | 2018-09-27 21:26 | PDOC ---
Attending Attestation - HPI HPI: 09/27/18 21:31 The patient is a 43 year old female with a significant past medical history of anxiety who presents to the emergency department with neck pain for 3 days. The patient reports that she has been experiencing some associated dizziness and blurry vision with her neck pain. The patient states that she had previously been experiencing about 3 months of vertiginous dizziness. The patient denies any other symptoms or complaints. 09/27/18 21:58 - Physicial Exam PE: 09/27/18 21:32 Agree with resident exam. <Mart Torres - Last Filed: 09/27/18 21:58> - Resident Resident Name: Laz Lockwood - ED Attending Attestation I have performed the following: I have examined & evaluated the patient, The case was reviewed & discussed with the resident, I agree w/resident's findings & plan - Medical Decision Making 09/27/18 23:04 42-year-old female with several month history of dizziness and blurred vision as well as previous MRI consistent with enlarged pituitary adenoma Now with bilateral reproducible neck pain Patient admits to not following up regarding her MRI She does have a department with neurology on Wednesday Plan for CTA of the head and neck today to rule out dissection or enlarging mass and likely discharge home if within normal limits with recommendations to continue with her outpatient follow-up <Trish Edwards - Last Filed: 09/27/18 23:05> Attestations - Attestations 09/27/18 21:32 Documentation prepared by Mart Torres, acting as veterinary medical officer for Trish Edwards DO, MD. <Mart Torres - Last Filed: 09/27/18 21:58>
[2018-09-27 21:44] LABS: BASO % 1.1 % (0-2.0); EOS % 3.9 % (0-4.5); HEMATOCRIT 37.9 % (32.4-45.2); HEMOGLOBIN 12.9 GM/dL (10.7-15.3); LYMPH % 30.4 % (8-40); MCH 31.8 pg (25.7-33.7); MCHC 34.1 g/dl (32.0-36.0); MEAN PLT VOLUME 7.5 fl (7.5-11.1); MONO % 10.7 % (3.8-10.2); NEUT % 53.9 % (42.8-82.8); PLATELET COUNT 254 K/MM3 (134-434); RBC 4.08 M/mm3 (3.60-5.2); RDW 14.3 % (11.6-15.6); WHITE BLOOD COUNT 7.4 K/mm3 (4.0-10.0)
[2018-09-27 22:08] LABS: INR 0.99 (0.83-1.09); PROTHROMBIN TIME (PATIENT) 11.7 SEC (9.7-13.0)
[2018-09-27 22:41] LABS: ALBUMIN 3.5 g/dl (3.4-5.0); ALK PHOS 115 U/L (45-117); ANION GAP 6 MMOL/L (8-16); BILIRUBIN,TOTAL 0.6 mg/dL (0.2-1); BLOOD UREA NITROGEN 18 mg/dL (7-18); CALCIUM 8.4 mg/dL (8.5-10.1); CHLORIDE 102 mmol/L (98-107); CO2 29 mmol/L (21-32); CREATININE 0.7 mg/dL (0.55-1.3); GLUCOSE,RANDOM 79 mg/dL (74-106); POTASSIUM 3.8 mmol/L (3.5-5.1); SGOT/AST 18 U/L (15-37); SGPT/ALT 11 U/L (13-61); SODIUM 138 mmol/L (136-145); TOT PROT 7.7 g/dl (6.4-8.2)
--- NOTE | 2018-09-27 23:51 | PDOC ---
History of Present Illness - General Chief Complaint: Lightheaded Stated Complaint: DIZZINESS,NECK PAIN Time Seen by Provider: 09/27/18 21:13 History Source: Patient Exam Limitations: No Limitations - History of Present Illness Initial Comments: 09/27/18 23:45 The patient is a 43F with a PMH of vertigo who presents to the ER with multiple complaints. The patient states that she's had 3 months of intractable vertiginous dizziness which was diagnosed in our ED 3 months ago without any imaging. She states that meclizine has helped with some of her symptoms. She also endorses 3 days of soreness in her neck bilaterally and pain which she says feels "in the middle of her head" as she points from her occiput. She denies numbness, tingling, weakness, but admits to some vision changes which she cannot specify. She denies CP, cough, sore throat, fever, chills, but admits to mild nausea w/o vomiting. Past History - Past Medical History Allergies/Adverse Reactions: Allergies Allergy/AdvReac Type Severity Reaction Status Date / Time oxycodone HCl [From Percocet] Allergy Severe Swelling Verified 09/27/18 20:12 pseudoephedrine HCl Allergy Severe Elevated Verified 09/27/18 20:12 [From Sudafed] Blood Pressure Sulfa (Sulfonamide Allergy Severe Elevated Verified 09/27/18 20:12 Antibiotics) Blood [Sulfa(Sulfonamide Pressure Antibiotics)] Penicillins Allergy Unknown Verified 09/27/18 20:12 azithromycin [From Zithromax] Allergy Elevated Verified 09/27/18 20:12 Blood Pressure codeine [Codeine] AdvReac Mild Elevated Verified 09/27/18 20:12 Blood Pressure Home Medications: Ambulatory Orders hydrOXYzine PAMOATE [Vistaril -] 25 mg PO TID PRN 09/09/18 COPD: No DVT: No Dementia: No Diabetes: No Psychiatric Problems: Yes (Anxiety) - Immunization History Immunization Up to Date: Yes - Suicide/Smoking/Psychosocial Hx Smoking Status: No Smoking History: Never smoked Have you smoked in the past 12 months: No Number of Cigarettes Smoked Daily: 0 Cigars Per Day: 0 Information on smoking cessation initiated: No Hx Alcohol Use: No Drug/Substance Use Hx: No Substance Use Type: None Hx Substance Use Treatment: No Review of Systems - Review of Systems Able to Perform ROS?: Yes Comments:: 09/28/18 01:17 GENERAL/CONSTITUTIONAL: No fever or chills. No weakness. HEAD, EYES, EARS, NOSE AND THROAT: No change in vision. No ear pain or discharge. No sore throat. CARDIOVASCULAR: No chest pain, palpitations, or lightheadedness. RESPIRATORY: No cough, wheezing, shortness of breath, or hemoptysis. GASTROINTESTINAL: No nausea, vomiting, diarrhea, constipation, or abdominal pain. GENITOURINARY: No dysuria, frequency, hematuria, or change in urination. MUSCULOSKELETAL: + for neck pain. No joint or muscle swelling or pain. No back pain. SKIN: No rash or lesions. NEUROLOGIC: + for vertiginous dizziness. No headache, numbness, tingling, focal weakness, loss of consciousness, or change in strength/sensation. Is the patient limited Sinhala proficient: No *Physical Exam - Vital Signs Last Vital Signs Temp Pulse Resp BP Pulse Ox 98.1 F 83 17 152/80 98 09/27/18 20:10 09/27/18 20:10 09/27/18 20:10 09/27/18 20:10 09/27/18 20:10 - Physical Exam Comments: 09/28/18 01:18 GENERAL: Well developed, well nourished. Awake and alert. No acute distress. HEENT: Normocephalic, atraumatic. Hearing grossly normal. Moist mucous membranes. PERRLA, EOMI. No conjunctival pallor. Sclera are non-icteric. NECK: Supple. Full ROM. No JVD. CARDIOVASCULAR: Regular rate and rhythm. No murmurs, rubs, or gallops. PULMONARY: No evidence of respiratory distress. Lungs clear to auscultation bilaterally. No wheezing, rales or rhonchi. ABDOMINAL: Soft. Non-tender. Non-distended. No rebound or guarding. No organomegaly. Normoactive bowel sounds. GENITOURINARY: No CVA tenderness bilaterally. MUSCULOSKELETAL: Normal range of motion at all joints. No bony deformities or tenderness. EXTREMITIES: No cyanosis. No clubbing. No edema. No calf tenderness or swelling. SKIN: Warm and dry. Normal capillary refill. No rashes. No jaundice. NEUROLOGICAL: Alert, awake, appropriate. Cranial nerves 2-12 grossly intact. Normal speech. Gait is normal without ataxia. PSYCHIATRIC: Cooperative. Good eye contact. Appropriate mood and affect. Moderate Sedation - Procedure Monitoring Vital Signs: Procedure Monitoring Vital Signs Temperature 98.1 F 09/27/18 20:10 Pulse Rate 83 09/27/18 20:10 Respiratory Rate 17 09/27/18 20:10 Blood Pressure 152/80 09/27/18 20:10 O2 Sat by Pulse Oximetry (%) 98 09/27/18 20:10 ED Treatment Course - LABORATORY CBC & Chemistry Diagram: 09/27/18 21:25 09/27/18 21:25 - ADDITIONAL ORDERS Additional order review: Laboratory Results 09/27/18 09/27/18 09/27/18 21:25 21:25 21:25 PT with INR 11.70 INR 0.99 Sodium 138 Potassium 3.8 Chloride 102 Carbon Dioxide 29 Anion Gap 6 L BUN 18 Creatinine 0.7 Creat Clearance w eGFR > 60 Random Glucose 79 Calcium 8.4 L Total Bilirubin 0.6 AST 18 ALT 11 L Alkaline Phosphatase 115 Total Protein 7.7 Albumin 3.5 Serum , Qual Negative 09/27/18 21:25 RBC 4.08 MCV 93.0 MCHC 34.1 RDW 14.3 MPV 7.5 Neutrophils % 53.9 D Lymphocytes % 30.4 D Monocytes % 10.7 H Eosinophils % 3.9 Basophils % 1.1 D - RADIOLOGY Radiology Studies Ordered: Category Date Time Status BRAIN CTA [CT] Stat CT Scan 09/27/18 21:24 Ordered NECK CTA [CT] Stat CT Scan 09/27/18 21:24 Ordered - Medications Given in the ED: ED Medications Discontinued Medications Generic Name Dose Route Start Last Admin Trade Name Delroyq PRN Reason Stop Dose Admin Acetaminophen 975 mg 09/27/18 21:13 09/27/18 21:43 Tylenol - PO 09/27/18 21:14 Not Given ONCE ONE Acetaminophen 1,000 mg 09/27/18 21:25 09/27/18 21:42 Ofirmev Injection - IVPB 09/27/18 21:26 1,000 mg ONCE ONE Administration Ketorolac Tromethamine 60 mg 09/27/18 21:13 09/27/18 21:43 Toradol Injection - IM 09/27/18 21:14 Not Given ONCE ONE Meclizine HCl 25 mg 09/27/18 21:13 09/27/18 21:42 Antivert - PO 09/27/18 21:14 25 mg ONCE ONE Administration Medical Decision Making - Medical Decision Making 09/28/18 00:56 The patient is a 43F with a PMH of vertigo who presents to the ER with complaints of vertiginous dizziness and neck pain, concerning for dissection. CTA shows: CTA Brain: The anterior and posterior arterial circulations are patent. No stenosis or occlusion dissection or aneurysm. CT angiography neck: The cervical common carotid arteries, bifurcations, cervical internal carotid arteries and the bilateral cervical vertebral arteries are all patent without stenosis occlusion dissection or aneurysm. Pt had an MRI in 2013 which showed possible slight enlargement of the pituitary gland. Due to this, I am concerned for worsening enlargement of the pituitary gland impacting the optic chiasm and causing sensation of dizziness due to distorted vision. Will d/w radiology. 09/28/18 03:46 Radiology suggests waiting until the AM for an MRI to evaluate for a pituitary mass. D/w patient who agrees to stay. Pt endorsed to inpt team for obs admission. *DC/Admit/Observation/Transfer Diagnosis at time of Disposition: Vertigo, Pituitary mass - Discharge Dispostion Condition at time of disposition: Guarded Decision to Admit order: Yes - Referrals Referrals: Aicha Patricio MD [Primary Care Provider] - - Patient Instructions - Post Discharge Activity
[2018-09-28] MEDS ORDERED: SODIUM CHLORIDE 0.9% 1000 ML INFUS.BAG IV ONE ×2 (00:28→00:50)
--- NOTE | 2018-09-28 03:29 | PN ---
Teaching Attending Note Name of Resident: Abi Ye ATTENDING PHYSICIAN STATEMENT I saw and evaluated the patient. I reviewed the resident's note and discussed the case with the resident. I agree with the resident's findings and plan as documented. SUBJECTIVE: Patient is a 43 year old woman with a PMH of vertigo, anxiety, fibromyalgia, chronic headache and dizziness, possible pituitary lesion on MRI in 2013 who presents to the ER with chief complaint of dizziness. The patient states that she's had 3 months of intractable vertiginous dizziness which was diagnosed in our ER 3 months ago without any imaging. Dizziness worse with ambulation. She states that meclizine has helped with some of her symptoms. She also endorses 3 days of soreness in her neck bilaterally and pain which she says feels "in the middle of her head" as she points from her occiput. Has not followed up with her neurologist recently. She denies numbness, tingling, weakness, but admits to some vision changes which she cannot specify. She denies chest pain, cough, sore throat, fever, chills, but admits to mild nausea with out vomiting. She is unemployed and on disability. Denies use of any illicit drugs. Currently on her menstrual period. OBJECTIVE: Alert Vital Signs Period Temp Pulse Resp BP Sys/Torres Pulse Ox Last 24 Hr 98.1 F 83 17 152/80 98 HEENT: No Jaundice, eye redness or discharge, PERRLA, EOMI. Normocephalic, atraumatic. External ears are normal and hearing is grossly intact. No nasal discharge. Neck: Supple, nontender. No palpable adenopathy or thyromegaly. No JVD Chest: Good effort. Clear to auscultation and percussion. Heart: Regular. No S3, rub or murmur Abdomen: Not distended, soft, nontender and no HSM. No rebound or guarding. Normal bowel sounds. Ext: Peripheral pulses intact. No leg edema. Skin: Warm and dry. No petechiae, rash or ecchymosis. Neuro: Alert. Oriented x3. CN 2-12 grossly intact. Sensation grossly intact in all four extremities and DTR are symmetric. Plantar reflexes are flexor. Normal gait. Psych: Appropriate mood and affect. Good insight. Home Medications Medication Instructions Recorded hydrOXYzine PAMOATE [Vistaril -] 25 mg PO TID PRN 09/09/18 Abnormal Lab Results 09/27/18 09/27/18 21:25 21:25 Monocytes % 10.7 H Anion Gap 6 L Calcium 8.4 L ALT 11 L ASSESSMENT AND PLAN: 1. Vertigo - CTA of the brain and neck did not show any gross abnormality. Will continue meclizine for now, ensure adequate hydration and avoid sudden head turns. Implement neurochecks and fall precautions. Get ESR and prolactin. Will repeat MRI/MRA and consult Neurology and PT. Recheck BP before discharge to make sure she does not have undiagnosed hypertension. 2. DVT prophylaxis - Lovenox 40 mg SQ q 24 hours. 3. Advance directives - Full code
--- NOTE | 2018-09-28 04:51 | HP ---
CHIEF COMPLAINT: dizziness, neck pain PCP: Dr. Patricio HISTORY OF PRESENT ILLNESS: 43 year old female w/o pmhx of fibromyalgia and anxiety presents to the ED c/o dizziness for 3 months. She states she feels lightheaded and worse when she is walking as she feels unsteady and weak. At home she tried Ibuprofen and Aleve with no relief. In the ED, she was given meclizine also with no relief. She complains of nausea associated with it as well as a headache localized to her occiput. Patients also complains of sharp bilateral neck pain for 5 days that becomes tingly. She denies any facial or upper extremity numbness or tingling. She states she has been having blurry vision for a year and the symptoms have resolved with the use of corrective lenses. She denies any fever, chills, weight change, changes in hearing, photophobia, chest pain, or SOB. Patient had an MRI done on 02/27/2014 that showed slight enlarged pituitary gland. She has seen a neurologist within the past and was advised to obtain a more recent MRI, however, she was unable to do so due to insurance reasons so she was lost to follow up as a result. ER course was notable for: (1) VS wnl, CBC/BMP wnl (2) IV Tylenol, NS x2L given, Antivert (3) Head imaging studies done- * CTA Brain: Anterior and posterior arterial circulatios patent; No stenosis or occlusion, dissection or aneurysm * CTA Neck: Cervical, common carotid arteries, bifurcations, cervical internal carotid arteries and b/l cervical vertebral arteries are all patent w/o stenosis , occlusion, dissection, or aneurysm. Recent Travel: Denies PAST MEDICAL HISTORY: fibromyalgia anxiety/panic attack PAST SURGICAL HISTORY: C-s x3 Social History: Smoking: Denies Alcohol: Denies Drugs: [employer] Occupation: Has been on disability since 14 years ago, due to chronic pain because of her fibromyalgia; house- Family History: Father- HTN, heart disease, blood clots Mother- Lupus, fibromyalgia, breast/head tumor Allergies oxycodone HCl [From Percocet] Allergy (Severe, Verified 09/27/18 20:12) Swelling pseudoephedrine HCl [From Sudafed] Allergy (Severe, Verified 09/27/18 20:12) Elevated Blood Pressure Sulfa (Sulfonamide Antibiotics) [Sulfa(Sulfonamide Antibiotics)] Allergy (Severe , Verified 09/27/18 20:12) Elevated Blood Pressure Penicillins Allergy (Unknown, Verified 09/27/18 20:12) azithromycin [From Zithromax] Allergy (Verified 09/27/18 20:12) Elevated Blood Pressure codeine [Codeine] Adverse Reaction (Mild, Verified 09/27/18 20:12) Elevated Blood Pressure HOME MEDICATIONS: Home Medications Medication Instructions Recorded hydrOXYzine PAMOATE [Vistaril -] 25 mg PO TID PRN 09/09/18 REVIEW OF SYSTEMS CONSTITUTIONAL: +generalized weakness Absent: fever, chills, diaphoresis, , malaise, loss of appetite, weight change HEENT: +b/l neck pain, sharp and tingling Absent: rhinorrhea, nasal congestion, throat pain, throat swelling, difficulty swallowing, mouth swelling, ear pain, eye pain, visual changes CARDIOVASCULAR: Absent: chest pain, syncope, palpitations, irregular heart rate, lightheadedness , peripheral edema RESPIRATORY: Absent: cough, shortness of breath, dyspnea with exertion, orthopnea, wheezing GASTROINTESTINAL: Absent: abdominal pain, abdominal distension, nausea, vomiting, diarrhea, constipation GENITOURINARY: Absent: dysuria, frequency, urgency, hesitancy, hematuria MUSCULOSKELETAL: +myalgia Absent: arthralgia, joint swelling, back pain, neck pain NEUROLOGIC: +headache, +dizziness (lightheadedness when standing, room spinning with laying down or sitting), unsteady when walking when dizzy Absent: focal weakness or paresthesias, unsteady gait, mental status changes PSYCHIATRIC: +anxiety Absent: depression, suicidal or homicidal ideation, hallucinations. PHYSICAL EXAMINATION Vital Signs - 24 hr 09/27/18 09/28/18 20:10 04:26 Temperature 98.1 F Pulse Rate 83 Pulse Rate [ 80 Apical] Respiratory 17 18 Rate Blood Pressure 152/80 Blood Pressure 142/78 [Right Arm] O2 Sat by Pulse 98 100 Oximetry (%) GENERAL: AAOx3. NAD. Comfortable in bed. HEENT: AT/NC. EOMI. SAMMIE. Moist mucus membranes. No facial pain. B/l facial sensation intact. Wears glasses. NECK: Normal range of motion, no lymphadenopathy, JVD, or masses. Mild TTP b/l. LUNGS: CTA B/L. No wheezes/rales noted. Symmetric chest rise. HEART: RRR. Normal S1, S2. No murmurs noted. ABDOMEN: Soft, NT/ND. +BS in all 4Qs. No masses, rebound, guarding. MUSCULOSKELETAL: Normal range of motion at all joints. No bony deformities or tenderness. No CVA tenderness. UPPER EXTREMITIES: 2+ pulses, warm, well-perfused. No cyanosis. No clubbing. No peripheral edema. LOWER EXTREMITIES: 2+ pulses, warm, well-perfused. No calf tenderness. No peripheral edema. NEUROLOGICAL: Facial muscles intact. No tongue deviation. Normal speech. Normal gait. Normal [id number]. SKIN: Warm, dry, normal turgor, no rashes or lesions noted, normal capillary refill. Laboratory Results - last 24 hr 09/27/18 09/27/18 09/27/18 21:25 21:25 21:25 WBC 7.4 RBC 4.08 Hgb 12.9 Hct 37.9 MCV 93.0 MCH 31.8 MCHC 34.1 RDW 14.3 Plt Count 254 MPV 7.5 Absolute Neuts (auto) 4.0 Neutrophils % 53.9 D Lymphocytes % 30.4 D Monocytes % 10.7 H Eosinophils % 3.9 Basophils % 1.1 D Nucleated RBC % 0 PT with INR 11.70 INR 0.99 Sodium Potassium Chloride Carbon Dioxide Anion Gap BUN Creatinine Creat Clearance w eGFR Random Glucose Calcium Total Bilirubin AST ALT Alkaline Phosphatase Total Protein Albumin Serum , Qual Negative 09/27/18 21:25 WBC RBC Hgb Hct MCV MCH MCHC RDW Plt Count MPV Absolute Neuts (auto) Neutrophils % Lymphocytes % Monocytes % Eosinophils % Basophils % Nucleated RBC % PT with INR INR Sodium 138 Potassium 3.8 Chloride 102 Carbon Dioxide 29 Anion Gap 6 L BUN 18 Creatinine 0.7 Creat Clearance w eGFR > 60 Random Glucose 79 Calcium 8.4 L Total Bilirubin 0.6 AST 18 ALT 11 L Alkaline Phosphatase 115 Total Protein 7.7 Albumin 3.5 Serum , Qual CONSULT: Neuro- Dr. Loja IMAGING: * CTA Brain: Anterior and posterior arterial circulatios patent; No stenosis or occlusion, dissection or aneurysm * CTA Neck: Cervical, common carotid arteries, bifurcations, cervical internal carotid arteries and b/l cervical vertebral arteries are all patent w/o stenosis , occlusion, dissection, or aneurysm. * EKG: NSR, HR 88, prolonged QTc 491 ms, no ST-T changes Past Imaging- * Brain MRI (02/27/14): Prominent/slightly enlarged pituitary gland w/ homogeneous enhancement that is likely due to pt's age. No micro or macroadenoma identified. Superior margin reaching level of optic chiasm, anteriorly w/o mass effect on optic chiasm or on optic nerves just prior to optic chiasm. ASSESSMENT/PLAN: 43F w/ pmhx of fibromyalgia and anxiety presented to the ED with complaints of dizziness x3 months and neck pain. #Dizziness -CTA Brain/Neck noted above; unremarkable. -Brain MRI ordered; will compare to previous one done on 02/27/14 -Neuro consult -Meclizine given in the ED with no symptomatic relief. -Orthostatics ordered -ESR/Prolactin ordered #Fibromyalgia -Tylenol 650 Q6H PO PRN #Anxiety -Pt takes Vistaril 25 mg at home, however this can cause prolonged QTc -Will hold for now since QTc prolonged #Prophylaxis -Lovenox 40 SQ #FEN -PO hydration -recheck BMP in AM -Regular diet dispo -admit to med-surg obs -full code -medications have been reconciled Visit type - Emergency Visit Emergency Visit: Yes ED Registration Date: 09/28/18 Care time: The patient presented to the Emergency Department on the above date and was hospitalized for further evaluation of their emergent condition. - New Patient This patient is new to me today: Yes Date on this admission: 09/28/18 - Critical Care Critical Care patient: No
[2018-09-28] MEDS ORDERED: ACETAMINOPHEN 325 MG TABLET (FP) PO PRN (05:27)
--- NOTE | 2018-09-28 08:31 | PN ---
Physical Exam: SUBJECTIVE: Patient seen and examined at bedside- patient states she is still feeling dizzy despite being given meclizine in the ED she states that that doesn 't provide any relief; she is also feeling congestion mainly on her right side- she denies any CP/SOB/N/v fevers or chills OBJECTIVE: Vital Signs Period Temp Pulse Resp BP Sys/Torres Pulse Ox Last 24 Hr 97.7 F-98.1 F 74-83 17-18 120-152/78-80 98-100 GENERAL: The patient is awake, alert, and fully oriented, in no acute distress. EYES: EOMI; PEERLA; no scleral icterus NECK: no JVD; no lymphadenopathy LUNGS: CTA B/L; no rales, rhonchi or wheezing HEART: Regular rate and rhythm, S1, S2 without murmur, rub or gallop. ABDOMEN: Soft, nontender, nondistended, normoactive bowel sounds, no guarding, no rebound, no hepatosplenomegaly, no masses. EXTREMITIES: 2+ pulses, warm, well-perfused, no edema. NEUROLOGICAL: Cranial nerves II through XII grossly intact. Normal speech, sensation intact B/L; strength 5/5 UE and LE; + taina hallpike manuver PSYCH: Normal mood, normal affect. SKIN: Warm, dry, normal turgor, no rashes or lesions noted Laboratory Results - last 24 hr 09/27/18 09/27/18 09/27/18 21:25 21:25 21:25 WBC 7.4 RBC 4.08 Hgb 12.9 Hct 37.9 MCV 93.0 MCH 31.8 MCHC 34.1 RDW 14.3 Plt Count 254 MPV 7.5 Absolute Neuts (auto) 4.0 Neutrophils % 53.9 D Lymphocytes % 30.4 D Monocytes % 10.7 H Eosinophils % 3.9 Basophils % 1.1 D Nucleated RBC % 0 PT with INR 11.70 INR 0.99 Sodium Potassium Chloride Carbon Dioxide Anion Gap BUN Creatinine Creat Clearance w eGFR Random Glucose Calcium Total Bilirubin AST ALT Alkaline Phosphatase Total Protein Albumin Serum , Qual Negative 09/27/18 21:25 WBC RBC Hgb Hct MCV MCH MCHC RDW Plt Count MPV Absolute Neuts (auto) Neutrophils % Lymphocytes % Monocytes % Eosinophils % Basophils % Nucleated RBC % PT with INR INR Sodium 138 Potassium 3.8 Chloride 102 Carbon Dioxide 29 Anion Gap 6 L BUN 18 Creatinine 0.7 Creat Clearance w eGFR > 60 Random Glucose 79 Calcium 8.4 L Total Bilirubin 0.6 AST 18 ALT 11 L Alkaline Phosphatase 115 Total Protein 7.7 Albumin 3.5 Serum , Qual Active Medications Generic Name Dose Route Start Last Admin Trade Name Freq PRN Reason Stop Dose Admin Acetaminophen 650 mg 09/28/18 05:27 Tylenol - PO Q6H PRN Fever Or Pain Enoxaparin Sodium 40 mg 09/28/18 10:00 Lovenox - SQ DAILY ELADIA ASSESSMENT/PLAN: 43F w/ pmhx of fibromyalgia and anxiety presented to the ED with complaints of dizziness x3 months and neck pain. #Dizziness -positive taina hallpike manuver -check orthostatic vital signs -CTA Brain/Neck noted above; unremarkable. -Brain MRI to be done as outpatient -Neuro consult appreciated -ENT consult placed -Meclizine 25 TID -NS @100mls #Fibromyalgia -Tylenol 650 Q6H PO PRN #Anxiety -Pt takes Vistaril 25 mg at home, however this can cause prolonged QTc -Will hold for now since QTc prolonged #Prophylaxis -Lovenox 40 SQ #FEN -PO hydration -recheck BMP in AM -Regular diet Problem List - Problems (2) Vertigo Code(s): R42 - DIZZINESS AND GIDDINESS Visit type - Emergency Visit Emergency Visit: Yes ED Registration Date: 09/28/18 Care time: The patient presented to the Emergency Department on the above date and was hospitalized for further evaluation of their emergent condition. - New Patient This patient is new to me today: Yes Date on this admission: 09/28/18 - Critical Care Critical Care patient: No
[2018-09-28] MEDS: ENOXAPARIN NA (PORCINE) 40 MG/0.4 ML DISP.SYRIN SQ SCH (09:14)
--- NOTE | 2018-09-28 09:16 | CONSULT ---
Consult - text type - Consultation Consultation Note: Neurology CHIEF COMPLAINT: dizziness, neck pain HISTORY OF PRESENT ILLNESS: 43 year old female w/o pmhx of fibromyalgia and anxiety presents to the ED c/o dizziness for 3 months. She states she feels lightheaded and worse when she is walking as she feels unsteady and weak. At home she tried Ibuprofen and Aleve with no relief. In the ED, she was given meclizine also with no relief. She complains of nausea associated with it as well as a headache localized to her occiput. Patients also complains of sharp bilateral neck pain for 5 days that becomes tingly. She denies any facial or upper extremity numbness or tingling. She states she has been having blurry vision for a year and the symptoms have resolved with the use of corrective lenses. She denies any fever, chills, weight change, changes in hearing, photophobia, chest pain, or SOB. Patient had an MRI done on 02/27/2014 that showed slight enlarged pituitary gland. She was seen by me in a previous office however, she was lost to follow up due to insurance issues. Completed CTA overnight, awaiting official report, according to notes reportedly shows: * CTA Brain: Anterior and posterior arterial circulatios patent; No stenosis or occlusion, dissection or aneurysm * CTA Neck: Cervical, common carotid arteries, bifurcations, cervical internal carotid arteries and b/l cervical vertebral arteries are all patent w/o stenosis , occlusion, dissection, or aneurysm. Patient ordered for MRI brain to evaluate pituitary. Patient gets anxious and does have somatic symptoms from the past with negative workup based on my best recollection. IF MRI not able to be completed, can have OPEN MRI as outpatient if needed. NO focal deficits and stable at this time despite symptoms. Recent Travel: Denies PAST MEDICAL HISTORY: fibromyalgia anxiety/panic attack PAST SURGICAL HISTORY: C-s x3 Social History: Smoking: Denies Alcohol: Denies Drugs: [employer] Occupation: Has been on disability since 14 years ago, due to chronic pain because of her fibromyalgia; house- Family History: Father- HTN, heart disease, blood clots Mother- Lupus, fibromyalgia, breast/head tumor Allergies oxycodone HCl [From Percocet] Allergy (Severe, Verified 09/27/18 20:12) Swelling pseudoephedrine HCl [From Sudafed] Allergy (Severe, Verified 09/27/18 20:12) Elevated Blood Pressure Sulfa (Sulfonamide Antibiotics) [Sulfa(Sulfonamide Antibiotics)] Allergy (Severe , Verified 09/27/18 20:12) Elevated Blood Pressure Penicillins Allergy (Unknown, Verified 09/27/18 20:12) azithromycin [From Zithromax] Allergy (Verified 09/27/18 20:12) Elevated Blood Pressure codeine [Codeine] Adverse Reaction (Mild, Verified 09/27/18 20:12) Elevated Blood Pressure HOME MEDICATIONS: Home Medications Medication Instructions Recorded hydrOXYzine PAMOATE [Vistaril -] 25 mg PO TID PRN 09/09/18 REVIEW OF SYSTEMS CONSTITUTIONAL: +generalized weakness Absent: fever, chills, diaphoresis, , malaise, loss of appetite, weight change HEENT: +b/l neck pain, sharp and tingling Absent: rhinorrhea, nasal congestion, throat pain, throat swelling, difficulty swallowing, mouth swelling, ear pain, eye pain, visual changes CARDIOVASCULAR: Absent: chest pain, syncope, palpitations, irregular heart rate, lightheadedness , peripheral edema RESPIRATORY: Absent: cough, shortness of breath, dyspnea with exertion, orthopnea, wheezing GASTROINTESTINAL: Absent: abdominal pain, abdominal distension, nausea, vomiting, diarrhea, constipation GENITOURINARY: Absent: dysuria, frequency, urgency, hesitancy, hematuria MUSCULOSKELETAL: +myalgia Absent: arthralgia, joint swelling, back pain, neck pain NEUROLOGIC: +headache, +dizziness (lightheadedness when standing, room spinning with laying down or sitting), unsteady when walking when dizzy Absent: focal weakness or paresthesias, unsteady gait, mental status changes PSYCHIATRIC: +anxiety Absent: depression, suicidal or homicidal ideation, hallucinations. PHYSICAL EXAMINATION Vital Signs Period Temp Pulse Resp BP Sys/Torres Pulse Ox Last 24 Hr 97.7 F-98.1 F 74-83 17-18 120-152/78-80 98-100 GENERAL: AAOx3. NAD. Comfortable in bed. HEENT: AT/NC. EOMI. SAMMIE. Moist mucus membranes. No facial pain. B/l facial sensation intact. Wears glasses. NECK: Normal range of motion, no lymphadenopathy, JVD, or masses. Mild TTP b/l. LUNGS: CTA B/L. No wheezes/rales noted. Symmetric chest rise. HEART: RRR. Normal S1, S2. No murmurs noted. ABDOMEN: Soft, NT/ND. +BS in all 4Qs. No masses, rebound, guarding. MUSCULOSKELETAL: Normal range of motion at all joints. No bony deformities or tenderness. No CVA tenderness. UPPER EXTREMITIES: 2+ pulses, warm, well-perfused. No cyanosis. No clubbing. No peripheral edema. LOWER EXTREMITIES: 2+ pulses, warm, well-perfused. No calf tenderness. No peripheral edema. NEUROLOGICAL: Facial muscles intact. No tongue deviation. Normal speech. Normal gait. Normal [id number]. SKIN: Warm, dry, normal turgor, no rashes or lesions noted, normal capillary refill. Laboratory Results - last 24 hr 09/27/18 09/27/18 09/27/18 21:25 21:25 21:25 WBC 7.4 RBC 4.08 Hgb 12.9 Hct 37.9 MCV 93.0 MCH 31.8 MCHC 34.1 RDW 14.3 Plt Count 254 MPV 7.5 Absolute Neuts (auto) 4.0 Neutrophils % 53.9 D Lymphocytes % 30.4 D Monocytes % 10.7 H Eosinophils % 3.9 Basophils % 1.1 D Nucleated RBC % 0 PT with INR 11.70 INR 0.99 Sodium Potassium Chloride Carbon Dioxide Anion Gap BUN Creatinine Creat Clearance w eGFR Random Glucose Calcium Total Bilirubin AST ALT Alkaline Phosphatase Total Protein Albumin Serum , Qual Negative 09/27/18 21:25 WBC RBC Hgb Hct MCV MCH MCHC RDW Plt Count MPV Absolute Neuts (auto) Neutrophils % Lymphocytes % Monocytes % Eosinophils % Basophils % Nucleated RBC % PT with INR INR Sodium 138 Potassium 3.8 Chloride 102 Carbon Dioxide 29 Anion Gap 6 L BUN 18 Creatinine 0.7 Creat Clearance w eGFR > 60 Random Glucose 79 Calcium 8.4 L Total Bilirubin 0.6 AST 18 ALT 11 L Alkaline Phosphatase 115 Total Protein 7.7 Albumin 3.5 Serum , Qual IMAGING: * CTA Brain: Anterior and posterior arterial circulatios patent; No stenosis or occlusion, dissection or aneurysm * CTA Neck: Cervical, common carotid arteries, bifurcations, cervical internal carotid arteries and b/l cervical vertebral arteries are all patent w/o stenosis , occlusion, dissection, or aneurysm. * EKG: NSR, HR 88, prolonged QTc 491 ms, no ST-T changes Past Imaging- * Brain MRI (02/27/14): Prominent/slightly enlarged pituitary gland w/ homogeneous enhancement that is likely due to pt's age. No micro or macroadenoma identified. Superior margin reaching level of optic chiasm, anteriorly w/o mass effect on optic chiasm or on optic nerves just prior to optic chiasm. ASSESSMENT/PLAN: 43 year old female w/o pmhx of fibromyalgia and anxiety presents to the ED c/o dizziness for 3 months. She states she feels lightheaded and worse when she is walking as she feels unsteady and weak. At home she tried Ibuprofen and Aleve with no relief. In the ED, she was given meclizine also with no relief. She complains of nausea associated with it as well as a headache localized to her occiput. Patients also complains of sharp bilateral neck pain for 5 days that becomes tingly. She denies any facial or upper extremity numbness or tingling. She states she has been having blurry vision for a year and the symptoms have resolved with the use of corrective lenses. She denies any fever, chills, weight change, changes in hearing, photophobia, chest pain, or SOB. Patient had an MRI done on 02/27/2014 that showed slight enlarged pituitary gland. She was seen by me in a previous office however, she was lost to follow up due to insurance issues. Patient ordered for MRI brain to evaluate pituitary. Patient gets anxious and does have somatic symptoms from the past with negative workup based on my best recollection. IF MRI not able to be completed, can have OPEN MRI as outpatient if needed. NO focal deficits and stable at this time despite symptoms. Conitnue hydration, meclezine for dizzyness. Low dose Valium 2mg can be tried for dizziness as well. Possibly fibromyalgia as well, may need to see Rheum as outpatient. Monitor anxiety, relaxation and reassurance recommended.
[2018-09-28] MEDS ORDERED: MECLIZINE HCL 25 MG TABLET (FP) PO PRN (10:38)
[2018-09-28] MEDS: SODIUM CHLORIDE 1,000 ML IV SCH (11:32)
[2018-09-28] MEDS ORDERED: PT OWN MED DRAWER 7, Y5N ONE (11:49)
--- NOTE | 2018-09-28 12:37 | EKG ---
Test Reason : Blood Pressure : / mmHG Vent. Rate : 088 BPM Atrial Rate : 088 BPM P-R Int : 164 ms QRS Dur : 096 ms QT Int : 406 ms P-R-T Axes : 036 -19 029 degrees QTc Int : 491 ms NORMAL SINUS RHYTHM PROLONGED QT ABNORMAL ECG WHEN COMPARED WITH ECG OF 24-JAN-2018 22:05, QT HAS LENGTHENED Confirmed by MAIA STANLEY, AMBER ([id number]) on 09/28/2018 12:37:06 PM Referred By: Confirmed By:AMBER CARVALHO MD
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
[2018-09-28] MEDS ORDERED: MECLIZINE HCL 25 MG TABLET (FP) PO SCH (14:00)
[2018-09-29 08:03] LABS: BASO % 0.9 % (0-2.0); EOS % 5.7 % (0-4.5); HEMATOCRIT 36.7 % (32.4-45.2); HEMOGLOBIN 12.3 GM/dL (10.7-15.3); MCH 30.8 pg (25.7-33.7); MCHC 33.5 g/dl (32.0-36.0); MEAN PLT VOLUME 7.6 fl (7.5-11.1); MONO % 11.9 % (3.8-10.2); NEUT % 48.5 % (42.8-82.8); PLATELET COUNT 208 K/MM3 (134-434); RBC 3.98 M/mm3 (3.60-5.2); RDW 14.4 % (11.6-15.6); WHITE BLOOD COUNT 4.8 K/mm3 (4.0-10.0)
--- NOTE | 2018-09-29 08:11 | CON.ENT ---
Consult Consult Specialty:: ENT Referred by:: Dr. Fischer Reason for Consultation:: dizziness and sinusitis - History of Present Illness Chief Complaint: dizziness, nasal obstruction History of Present Illness: 43 yo F admitted with dizziness has had intermittent symptoms with associated headache and neck pain prior outpatient Neurology care with Dr. Ljoa dizziness is described as unsteadiness, lightheadedness, occasional spinning not consistently relieved with meclizine denies hearing loss, tinnitus or ear pain also reports lognstanding nasal and sinus symptoms, with nasal obstruction worse right side, clear rhinorrhea, no purulent nasal secretions or bleeding . smell sense reduced suspects allergies, reports perennial symptoms, x years, has not had formal allergy evaluation or testing, has had some relief with Flonase nasal spray. - History Source History Provided By: Patient, Medical Record Limitations to Obtaining History: No Limitations - Past Medical History ...LMP: 07/01/18 ...: No - Alcohol/Substance Use Hx Alcohol Use: No - Smoking History Smoking history: Never smoked Have you smoked in the past 12 months: No Aproximately how many cigarettes per day: 0 Home Medications - Allergies Allergies/Adverse Reactions: Allergies Allergy/AdvReac Type Severity Reaction Status Date / Time oxycodone HCl [From Percocet] Allergy Severe Swelling Verified 09/27/18 20:12 pseudoephedrine HCl Allergy Severe Elevated Verified 09/27/18 20:12 [From Sudafed] Blood Pressure Sulfa (Sulfonamide Allergy Severe Elevated Verified 09/27/18 20:12 Antibiotics) Blood [Sulfa(Sulfonamide Pressure Antibiotics)] Penicillins Allergy Unknown Verified 09/27/18 20:12 azithromycin [From Zithromax] Allergy Elevated Verified 09/27/18 20:12 Blood Pressure codeine [Codeine] AdvReac Mild Elevated Verified 09/27/18 20:12 Blood Pressure - Home Medications Home Medications: Ambulatory Orders hydrOXYzine PAMOATE [Vistaril -] 25 mg PO TID PRN 09/09/18 Family Disease History - Family Disease History Family Disease History: Other: Son (alive and well) Physical Exam-ENT Vital Signs: Vital Signs Temperature 97.6 F 09/29/18 05:55 Pulse Rate 80 09/29/18 05:55 Respiratory Rate 18 09/29/18 05:55 Blood Pressure 126/76 09/29/18 05:55 O2 Sat by Pulse Oximetry (%) 99 09/28/18 12:55 Constitutional: Yes: Well Nourished, No Distress, Calm Head: Yes: WNL Face: Yes: WNL Eyes: Yes: WNL Nose: Yes: Septum Deviated, Other (nasal endoscopy: septum deviated to right, clear thick mucus, no polyps, right inferior turbinate edematous, difrficult to visualize right MT, MM, ST, SM, SE recess; left side IT, MT, MM SE WNL, ST/SM difficult to visualize, nasopharynx showe adenoids enlarged 2-3+ with >50% airway obstruction) Oral/Pharynx: Yes: Enlarged Tonsils Ear Canal: Yes: WNL Tympanic Membrane: Yes: WNL Respiratory: Yes: WNL Imaging - Results Cat Scan: Report Reviewed, Image Reviewed (CTA brain shows no stenosis. maxillary sinus mucosal thickening, DNS right, turbinate edema, increased soft tissue in nasopharynx c/w enlarged adenoids) Problem List - Problems (1) Chronic rhinosinusitis Assessment/Plan: chronic s ymptoms with obstruction, rhinorrhea, sinus symptoms, hyposmia CT scan +maxillary sinus mucosal thickening, DNS, IT hypertrophy, adenoid hypertrophy Recommend: fluticasone nasal spray outpatient follow-up for formal allergy consultation and testing. Code(s): J32.9 - CHRONIC SINUSITIS, UNSPECIFIED Qualifiers: Sinusitis location: maxillary Qualified Code(s): J32.0 - Chronic maxillary sinusitis (2) Vertigo Assessment/Plan: intermittent symptoms Recommend: continue evaluation as per Dr. Loja consider outpatient physical therapy Code(s): R42 - DIZZINESS AND GIDDINESS
[2018-09-29 08:25] LABS: ALBUMIN 3.1 g/dl (3.4-5.0); ALK PHOS 98 U/L (45-117); ANION GAP 5 MMOL/L (8-16); BILIRUBIN,TOTAL 0.8 mg/dL (0.2-1); BLOOD UREA NITROGEN 9 mg/dL (7-18); CALCIUM 7.8 mg/dL (8.5-10.1); CHLORIDE 108 mmol/L (98-107); CO2 27 mmol/L (21-32); CREATININE 0.6 mg/dL (0.55-1.3); GLUCOSE,RANDOM 73 mg/dL (74-106); MAGNESIUM 2.4 mg/dL (1.8-2.4); PHOSPHOROUS 2.8 mg/dL (2.5-4.9); POTASSIUM 4.4 mmol/L (3.5-5.1); SGOT/AST 14 U/L (15-37); SGPT/ALT 10 U/L (13-61); SODIUM 140 mmol/L (136-145); TOT PROT 6.8 g/dl (6.4-8.2)
[2018-09-29] MEDS ORDERED: PT OWN MED DRAWER 7, Y5N ONE (08:42)
[2018-09-29] MEDS: MECLIZINE HCL 25 MG TABLET (FP) PO SCH ×3 (08:43→14:28)
--- NOTE | 2018-09-29 08:49 | PN ---
Teaching Attending Note Name of Resident: Joann Fischer ATTENDING PHYSICIAN STATEMENT I saw and evaluated the patient. I reviewed the resident's note and discussed the case with the resident. I agree with the resident's findings and plan as documented. SUBJECTIVE: no fever or chills. has no BROWNE , no vertigo, no light headedness, even when she got up. she is walking in hallway with no problems OBJECTIVE: NAD CV: RRR Lungs: CTAB Ext: no edema or erythema Gait : walked her in hallway and was very steady with no light headedness at any point ASSESSMENT AND PLAN: 43 y/o lady with h/o fibromyalgia, anxiety, pituitary enlargement, BROWNE , who presented with persistent dizziness. She was found to have orthostatis hypotension and vertigo 1- Orthostatic hypotension. sx resolved with hydration . recommended oral hydration 2- BPV. vertigo resolved with standing meclizine - cont standing meclizine x 1 week then as needed only - EPly maneuver to cont at vt. PT referral. she was taught how to do it 3- chronic rhinosinusitis: - flonase - f/u with ENT 4- H/O pituitary enlargement: polactin is elevated , will need out pt MRI and follow up with neuro Unfortunately, MRI as inpatient was not approved by radiologist . dispo : vt home
[2018-09-29] MEDS: ENOXAPARIN NA (PORCINE) 40 MG/0.4 ML DISP.SYRIN SQ SCH (09:06)
--- NOTE | 2018-09-29 09:34 | PN ---
Progress Note (short form) - Note Progress Note: Neurology CHIEF COMPLAINT: dizziness, neck pain HISTORY OF PRESENT ILLNESS: 43 year old female w/o pmhx of fibromyalgia and anxiety presents to the ED c/o dizziness for 3 months. She states she feels lightheaded and worse when she is walking as she feels unsteady and weak. At home she tried Ibuprofen and Aleve with no relief. In the ED, she was given meclizine also with no relief. She complained of nausea associated with it as well as a headache localized to her occiput. Patients also complained of sharp bilateral neck pain for 5 days that becomes tingly. She denied any facial or upper extremity numbness or tingling. She stated she had been having blurry vision for a year and the symptoms have resolved with the use of corrective lenses. She denied any fever, chills, weight change, changes in hearing, photophobia, chest pain, or SOB. Patient had an MRI done on 02/27/2014 that showed slight enlarged pituitary gland. She was seen by me in a previous office however, she was lost to follow up due to insurance issues. Completed CTA with no stenosis or occlusion, dissection or aneurysm. Patient ordered for MRI brain to evaluate pituitary, radiology recommended outpatient outpatient imaging, no objection to this as she she reports improved symptoms. ENT note reviewed, neurologically stable at this time. Provided contact information for outpatient follow up. Active Medications Acetaminophen (Tylenol -) 650 mg PO Q6H PRN PRN Reason: Fever Or Pain Last Admin: 09/29/18 08:35 Dose: 650 mg Enoxaparin Sodium (Lovenox -) 40 mg SQ DAILY [facility] Last Admin: 09/29/18 09:06 Dose: Not Given Fluticasone Propionate (Flonase -) 2 spray NS DAILY [facility] Sodium Chloride (Normal Saline -) 1,000 mls @ 100 mls/hr IV ASDIR ELADIA Last Admin: 09/28/18 11:32 Dose: 100 mls/hr Meclizine HCl (Antivert -) 25 mg PO TID ELADIA Last Admin: 09/29/18 09:17 Dose: Not Given PHYSICAL EXAMINATION Vital Signs Period Temp Pulse Resp BP Sys/Torres Pulse Ox Last 24 Hr 97.6 F-98.2 F 77-97 18-20 104-130/63-85 99 GENERAL: AAOx3. NAD. Comfortable in bed. HEENT: AT/NC. EOMI. SAMMIE. Moist mucus membranes. No facial pain. B/l facial sensation intact. Wears glasses. NECK: Normal range of motion, no lymphadenopathy, JVD, or masses. Mild TTP b/l. LUNGS: CTA B/L. No wheezes/rales noted. Symmetric chest rise. HEART: RRR. Normal S1, S2. No murmurs noted. ABDOMEN: Soft, NT/ND. +BS in all 4Qs. No masses, rebound, guarding. MUSCULOSKELETAL: Normal range of motion at all joints. No bony deformities or tenderness. No CVA tenderness. UPPER EXTREMITIES: 2+ pulses, warm, well-perfused. No cyanosis. No clubbing. No peripheral edema. LOWER EXTREMITIES: 2+ pulses, warm, well-perfused. No calf tenderness. No peripheral edema. NEUROLOGICAL: Facial muscles intact. No tongue deviation. Normal speech. Normal gait. Normal [id number]. SKIN: Warm, dry, normal turgor, no rashes or lesions noted, normal capillary refill. CBCD WBC 4.8 K/mm3 (4.0-10.0) 09/29/18 06:20 RBC 3.98 M/mm3 (3.60-5.2) 09/29/18 06:20 Hgb 12.3 GM/dL (10.7-15.3) 09/29/18 06:20 Hct 36.7 % (32.4-45.2) 09/29/18 06:20 MCV 92.0 fl (80-96) 09/29/18 06:20 MCHC 33.5 g/dl (32.0-36.0) 09/29/18 06:20 RDW 14.4 % (11.6-15.6) 09/29/18 06:20 Plt Count 208 K/MM3 (134-434) 09/29/18 06:20 MPV 7.6 fl (7.5-11.1) 09/29/18 06:20 CMP Sodium 140 mmol/L (136-145) 09/29/18 06:20 Potassium 4.4 mmol/L (3.5-5.1) 09/29/18 06:20 Chloride 108 mmol/L (98-107) H 09/29/18 06:20 Carbon Dioxide 27 mmol/L (21-32) 09/29/18 06:20 Anion Gap 5 MMOL/L (8-16) L 09/29/18 06:20 BUN 9 mg/dL (7-18) 09/29/18 06:20 Creatinine 0.6 mg/dL (0.55-1.3) 09/29/18 06:20 Creat Clearance w eGFR > 60 (>60) 09/29/18 06:20 Random Glucose 73 mg/dL (74-106) L 09/29/18 06:20 Calcium 7.8 mg/dL (8.5-10.1) L 09/29/18 06:20 Total Bilirubin 0.8 mg/dL (0.2-1) 09/29/18 06:20 AST 14 U/L (15-37) L 09/29/18 06:20 ALT 10 U/L (13-61) L 09/29/18 06:20 Alkaline Phosphatase 98 U/L (45-117) 09/29/18 06:20 Total Protein 6.8 g/dl (6.4-8.2) 09/29/18 06:20 Albumin 3.1 g/dl (3.4-5.0) L 09/29/18 06:20 IMAGING: * CTA Brain: Anterior and posterior arterial circulatios patent; No stenosis or occlusion, dissection or aneurysm * CTA Neck: Cervical, common carotid arteries, bifurcations, cervical internal carotid arteries and b/l cervical vertebral arteries are all patent w/o stenosis , occlusion, dissection, or aneurysm. * EKG: NSR, HR 88, prolonged QTc 491 ms, no ST-T changes Past Imaging- * Brain MRI (02/27/14): Prominent/slightly enlarged pituitary gland w/ homogeneous enhancement that is likely due to pt's age. No micro or macroadenoma identified. Superior margin reaching level of optic chiasm, anteriorly w/o mass effect on optic chiasm or on optic nerves just prior to optic chiasm. ASSESSMENT/PLAN: 43 year old female w/o pmhx of fibromyalgia and anxiety presents to the ED c/o dizziness for 3 months. She states she feels lightheaded and worse when she is walking as she feels unsteady and weak. At home she tried Ibuprofen and Aleve with no relief. In the ED, she was given meclizine also with no relief. She complains of nausea associated with it as well as a headache localized to her occiput. Patients also complains of sharp bilateral neck pain for 5 days that becomes tingly. She denies any facial or upper extremity numbness or tingling. She states she has been having blurry vision for a year and the symptoms have resolved with the use of corrective lenses. She denies any fever, chills, weight change, changes in hearing, photophobia, chest pain, or SOB. Patient had an MRI done on 02/27/2014 that showed slight enlarged pituitary gland. She was seen by me in a previous office however, she was lost to follow up due to insurance issues. Patient ordered for MRI brain to evaluate pituitary. Patient gets anxious and does have somatic symptoms from the past with negative workup based on my best recollection. ompleted CTA with no stenosis or occlusion, dissection or aneurysm. Patient ordered for MRI brain to evaluate pituitary, radiology recommended outpatient outpatient imaging, no objection to this as she she reports improved symptoms. ENT note reviewed, neurologically stable at this time. Provided contact information for outpatient follow up. Conitnue hydration, meclezine for dizzyness.
[2018-09-29] MEDS ORDERED: FLUTICASONE PROP 0.05% 16 GM NASAL SPRAY NS SCH (10:00)
--- NOTE | 2018-09-29 11:35 | DS ---
Physical Exam: SUBJECTIVE: Patient seen and examined OBJECTIVE: Vital Signs Period Temp Pulse Resp BP Sys/Torres Pulse Ox Last 24 Hr 97.6 F-98.2 F 77-97 18-20 104-126/69-77 99 PHYSICAL EXAM GENERAL: The patient is awake, alert, and fully oriented, in no acute distress. HEAD: Normal with no signs of trauma. EYES: PERRL, extraocular movements intact, sclera anicteric, conjunctiva clear. ENT: Ears normal, nares patent, oropharynx clear without exudates, moist mucous membranes. NECK: Trachea midline, full range of motion, supple. LUNGS: Breath sounds equal, clear to auscultation bilaterally, no wheezes, no crackles, no accessory muscle use. HEART: Regular rate and rhythm, S1, S2 without murmur, rub or gallop. ABDOMEN: Soft, nontender, nondistended, normoactive bowel sounds, no guarding, no rebound, no hepatosplenomegaly, no masses. EXTREMITIES: 2+ pulses, warm, well-perfused, no edema. NEUROLOGICAL: Cranial nerves II through XII grossly intact. Normal speech, gait not observed. PSYCH: Normal mood, normal affect. SKIN: Warm, dry, normal turgor, no rashes or lesions noted. LABS Laboratory Results - last 24 hr 09/28/18 09/29/18 09/29/18 08:40 06:20 06:20 WBC 4.8 RBC 3.98 Hgb 12.3 Hct 36.7 MCV 92.0 MCH 30.8 MCHC 33.5 RDW 14.4 Plt Count 208 MPV 7.6 Absolute Neuts (auto) 2.3 Neutrophils % 48.5 Lymphocytes % 33.0 Monocytes % 11.9 H Eosinophils % 5.7 H Basophils % 0.9 Nucleated RBC % 0 Sodium 140 Potassium 4.4 Chloride 108 H Carbon Dioxide 27 Anion Gap 5 L BUN 9 Creatinine 0.6 Creat Clearance w eGFR > 60 Random Glucose 73 L Calcium 7.8 L Phosphorus 2.8 Magnesium 2.4 Total Bilirubin 0.8 AST 14 L ALT 10 L Alkaline Phosphatase 98 Total Protein 6.8 Albumin 3.1 L Prolactin 23.7 H CTA neck/brain: no signs of anyuersm; vessels patent HOSPITAL COURSE: Date of Admission:09/28/18 43 y/o female with PMH of fibromyalgia and anxiety presented to the ED with complaints of dizziness and neck pain for 3 months. she has tried taking meclizine off and on for with no relief. she has never seen a neurologist before this/ she has been complaining of vertigo when she looks to the left and in addition when she looks up especially in the shower. she has been having gait issues and congestion as well. her dizziness was getting so bad so she came to the ER- CTA of brain andneck was done- she was seen by neurologist who suggested brain MRI as an outpatient . she was also seen BY ENT who suggested fluticasone nasal spray and to follow up as outpatient for allergy testing; she felt symptomatic relief from vertigo. she was sent home with ENT and neurology follow up Date of Discharge: 09/29/18 Minutes to complete discharge: 39 Discharge Summary Reason For Visit: VERTIGO,PITUITARY MASS Current Active Problems Chronic rhinosinusitis (Chronic) Pituitary mass (Chronic) Condition: Improved - Instructions Diet, Activity, Other Instructions: You came to the emergency room with complaints of vertigo and neck pain. We did a CTA of your head and neck which showed all normal, patent arteries with no evidence of of blockages. We gave you medication for your dizziness and your symptoms improved. You were diagnosed with benign positional vertigo Please follow up with Dr. Patricio within one week Please follow up Dr. Loja, the neurologist, within one week Please follow up with Dr. Garcia, the ENT specialist, within one week We are prescribing you Meclizine 25mg to be taken three times a day standing for 1 week then only if you need it every 8 hours. Please take Fluticasone nasal spray daily We are giving you a prescription to get an MRI of your brain done. *if you begin to experience worsening dizziness, vision changes, chest pains, shortness of breath please return to the emergency room immediately we gave you prescription fro out patient physical therapy for [employer] Referrals: Aicha Patricio MD [Primary Care Provider] - 1 Week Miles Loja MD [Staff Physician] - 1 Week Vahe Garcia MD [Staff Physician] - 1 Week Disposition: HOME - Home Medications Comprehensive Discharge Medication List: Ambulatory Orders Fluticasone Prop 0.05% Nasal [Flonase -] 2 spray NS DAILY #1 spray 09/29/18 Meclizine HCl [Antivert -] 25 mg PO TID 30 Days #90 tablet 09/29/18 Miscellaneous Medical Supply [Outpatient Order] 1 each ASDIR #1 misc Miscellaneous Medical Supply [Outpatient Order] 1 each ASDIR #1 [facility] [place] Problem List - Problems (2) Vertigo Code(s): R42 - DIZZINESS AND GIDDINESS This patient is new to me today: No Emergency Visit: Yes ED Registration Date: 09/28/18 Care time: The patient presented to the Emergency Department on the above date and was hospitalized for further evaluation of their emergent condition. Critical Care patient: No - Discharge Referral Referred to [facility] Med P.C.: No
[2018-09-29 11:46] VITALS: BP 108/69; PULSE 92; TEMP 98.2
[2018-09-29] MEDS ORDERED: ACETAMINOPHEN 325 MG TABLET (FP) PO ONE (13:07)
[2018-09-29] MEDS: SODIUM CHLORIDE 1,000 ML IV SCH (13:21)
== END 2018-09-29 14:28 | disposition home or self-care (01) ==
LOC: JER 19:43 → JERBED 09-28 02:29 → J8W 09-28 06:11
PROVIDERS: ADMIT Internal Medicine; ATTEND Internal Medicine
PROC: 3E033NZ Introduction of Analgesics, Hypnotics, Sedatives into Peripheral Vein, Percutaneous Approach (ICD-10-PCS; principal; 2018-09-28)
PROC: 3E0337Z Introduction of Electrolytic and Water Balance Substance into Peripheral Vein, Percutaneous Approach (ICD-10-PCS; 2018-09-28)
DX: R42 Dizziness and giddiness (principal); D35.2 Benign neoplasm of pituitary gland; M79.7 Fibromyalgia; F41.9 Anxiety disorder, unspecified; J32.0 Chronic maxillary sinusitis; Z88.1 Allergy status to other antibiotic agents; Z88.2 Allergy status to sulfonamides; Z88.5 Allergy status to narcotic agent
CPT/HCPCS: 36415; 70496-TC; 70498-TC; 80048; 80053; 83735; 84100; 84146; 84703; 85025; 85610; 85651; 93005; 93010; 96374; 97116-GP; 97162-GP; 99285-25; G0378; J0131; J7030

== ENCOUNTER 2018-10-20 21:43 | Emergency (ER) | payer OTHER ==
[2018-10-20 21:54] VITALS: PULSE 93; TEMP 98.1; BMI 26.4
--- NOTE | 2018-10-20 21:57 | PDOC ---
Rapid Medical Evaluation Chief Complaint: Blood Pressure Problem Time Seen by Provider: 10/20/18 21:51 Medical Evaluation: Allergies Allergy/AdvReac Type Severity Reaction Status Date / Time oxycodone HCl [From Percocet] Allergy Severe Swelling Verified 09/27/18 20:12 pseudoephedrine HCl Allergy Severe Elevated Verified 09/27/18 20:12 [From Sudafed] Blood Pressure Sulfa (Sulfonamide Allergy Severe Elevated Verified 09/27/18 20:12 Antibiotics) Blood [Sulfa(Sulfonamide Pressure Antibiotics)] Penicillins Allergy Unknown Verified 09/27/18 20:12 azithromycin [From Zithromax] Allergy Elevated Verified 09/27/18 20:12 Blood Pressure codeine [Codeine] AdvReac Mild Elevated Verified 09/27/18 20:12 Blood Pressure 10/20/18 21:52 I have performed a brief in-person evaluation of this patient. The patient presents with a chief complaint of: h/o anxiety present with complains of feeling of elevated blood pressure as she has flushing of the face which usually happens when she has elevated blood pressures. Denies h/o HTN but report episodes of elevated blood pressure. Pt was in [facility] and left to come here. report funny feeling in her chest Pertinent physical exam findings: A&O x 3. cardiac RRR in NAD I have ordered the following:EKG The patient will proceed to the ED for further evaluation. Discharge Disposition - Diagnosis Anxiety - Discharge Dispostion Condition at time of disposition: Stable - Referrals - Patient Instructions - Post Discharge Activity
[2018-10-20] MEDS ORDERED: ACETAMINOPHEN 500 MG TABLET (FP) PO ONE (22:59)
--- NOTE | 2018-10-20 23:03 | PDOC ---
History of Present Illness - General Chief Complaint: Blood Pressure Problem Stated Complaint: HIGH BLOOD PRESURE Time Seen by Provider: 10/20/18 21:51 History Source: Patient Exam Limitations: No Limitations - History of Present Illness Initial Comments: 10/20/18 23:05 HISTORY OF PRESENT ILLNESS: 43-year-old woman with past medical history of anxiety, fibromyalgia, vertigo, pituitary tumor presents emergency Department for evaluation of occipital headache and mid sternal chest pressure. Patient reports her headache started today when she noticed her blood pressure was elevated the 140/90s. Patient presented to another hospital but prior to evaluation left and came here for evaluation. She is unable to rate the pain but has not taken anything for it. Patient also with the midsternal chest tightness which has been present for the past 2 days which she rates 6/10. She reports the pain she is expressing now is different than her usual anxiety attack symptoms. She denies any blurry vision, dizziness, shortness of breath, abdominal pain, vomiting, dysuria, hematuria, rectal bleeding. No recent travel or sick contacts. PAST MEDICAL HISTORY: see HPI SURGICAL HISTORY: Denies ALLERGIES: Oxycodone, Sudafed, codeine, penicillin, sulfa, azithromycin REVIEW OF SYSTEMS General/Constitutional: Denies fever or chills. Denies weakness, weight change. HEENT: Denies change in vision. Denies ear pain or discharge. Denies sore throat. Cardiovascular: see HPI Respiratory: Denies cough, wheezing, or hemoptysis. Gastrointestinal: Denies nausea, vomiting, diarrhea or constipation. Denies rectal bleeding. Genitourinary: Denies dysuria, frequency, or change in urination. Musculoskeletal: Denies joint or muscle swelling or pain. Denies neck or back pain. Skin and breasts: Denies rash or easy bruising. Neurologic: see HPI Psychiatric: Denies depression or anxiety. Endocrine: Denies increased thirst. Denies abnormal weight change. Hematologic/Lymphatic: Denies anemia, easy bleeding, or history of blood clots. Allergic/Immunologic: Denies hives or skin allergy. Denies latex allergy. PHYSICAL EXAM General Appearance: Well-appearing, appropriately dressed. No apparent distress , no intoxication. HEENT: EOMI, PERRLA, normal ENT inspection, normal voice, TMs normal, pharynx normal. No conjunctival pallor. No photophobia, scleral icterus. Neck: Supple. Trachea midline. No tenderness, rigidity, carotid bruit, stridor , lymphadenopathy, or thyromegaly. Respiratory/Chest: Lungs CTAB. No shortness of breath, chest tenderness, respiratory distress, accessory muscle use. No crackles, rales, rhonchi, stridor , wheezing, dullness Cardiovascular: RRR. S1, S2. No JVD, murmur, bradycardia, tachycardia. Vascular Pulses: Dorsalis-Pedis (R): 2+, Dorsalis-Pedis (L): 2+ Gastrointestinal/Abdominal: Normal bowel sounds. Abdomen soft, non-distended. No tenderness or rebound tenderness. No organomegaly, pulsatile mass, guarding, hernia, hepatomegaly, splenomegaly. Lymphatic: No adenopathy, tenderness. Musculoskeletal/Extremities: Normal inspection. FROM of all extremities, normal capillary refill. Pelvis Stable. No CVA tenderness. No tenderness to extremities, pedal edema, swelling, erythema or deformity. Integumentary: Appropriate color, dry, warm. 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 Fully oriented, alert. Appropriate mood/affect. Motor strength 5/5. No appreciable EOM palsy, facial droop or sensory deficit. 10/20/18 23:11 Past History - Past Medical History Allergies/Adverse Reactions: Allergies Allergy/AdvReac Type Severity Reaction Status Date / Time oxycodone HCl [From Percocet] Allergy Severe Swelling Verified 09/27/18 20:12 pseudoephedrine HCl Allergy Severe Elevated Verified 09/27/18 20:12 [From Sudafed] Blood Pressure Sulfa (Sulfonamide Allergy Severe Elevated Verified 09/27/18 20:12 Antibiotics) Blood [Sulfa(Sulfonamide Pressure Antibiotics)] Penicillins Allergy Unknown Verified 09/27/18 20:12 azithromycin [From Zithromax] Allergy Elevated Verified 09/27/18 20:12 Blood Pressure codeine [Codeine] AdvReac Mild Elevated Verified 09/27/18 20:12 Blood Pressure Home Medications: Ambulatory Orders NK [No Known Home Medication] 10/20/18 COPD: No DVT: No Dementia: No Diabetes: No Psychiatric Problems: Yes (ANXIETY) Other medical history: FIBROMYALGIA - Immunization History Immunization Up to Date: Yes - Suicide/Smoking/Psychosocial Hx Smoking Status: No Smoking History: Never smoked Have you smoked in the past 12 months: No Number of Cigarettes Smoked Daily: 0 Cigars Per Day: 0 Hx Alcohol Use: No Drug/Substance Use Hx: No Substance Use Type: None Hx Substance Use Treatment: No *Physical Exam - Vital Signs Last Vital Signs Temp Pulse Resp BP Pulse Ox 98.1 F 93 H 18 143/96 100 10/20/18 21:49 10/20/18 21:49 10/20/18 21:49 10/20/18 21:49 10/20/18 21:49 Heart Score/ECG Review - History History: Slightly suspicious - Electrocardiogram EKG: Normal - Age Age: </= 45 - Risk Factors Based on the list above the patient has:: No risk factors known - Troponin Troponin: </= normal limit - Score Heart Score - Total: 0 ED Treatment Course - LABORATORY CBC & Chemistry Diagram: 10/20/18 23:21 10/20/18 23:21 Medical Decision Making - Medical Decision Making 10/20/18 23:10 A/P: 43-year-old woman with occipital headache and chest tightness Physical exam is within normal limits Labs including cardiac profile Urine Chest x-ray EKG Tylenol Reassess 10/21/18 01:22 Laboratory testing is unremarkable. EKG sinus rhythm with rate of 85. Normal intervals present. A complete right bundle-branch noted. No ST elevations, T-wave inversions or ST depressions present. QTc has normalized since EKG performed 09/28/18. Chest x-ray as read by me: Angles clear. Cardiac silhouette is within normal limits. No focal infiltrates or consolidations noted. Patient is currently pain-free and asymptomatic. I will discharge patient home follow-up to primary doctor. 10/21/18 01:33 *DC/Admit/Observation/Transfer Diagnosis at time of Disposition: Anxiety - Discharge Dispostion Disposition: HOME Condition at time of disposition: Stable Decision to Admit order: No - Referrals Referrals: Aicha Patricio MD [Primary Care Provider] - - Patient Instructions Additional Instructions: Continue taking hydroxyzine as directed by your prescriber. Eat a low-salt diet. Keep well-hydrated. Return to the emergency department for any new or worsening symptoms. Make an appointment with your primary doctor for reevaluation the next 3 days. Thank you very much for choosing us to provide your emergent health care needs. - Post Discharge Activity
[2018-10-20] MEDS ORDERED: ACETAMINOPHEN 325 MG TABLET (FP) ONE (23:06)
[2018-10-20 23:41] LABS: PROTHROMBIN TIME (PATIENT) 11.8 SEC (9.7-13.0)
[2018-10-21 00:04] VITALS: BP 117/70
[2018-10-21 00:04] LABS: ALBUMIN 3.2 g/dl (3.4-5.0); ALK PHOS 101 U/L (45-117); ANION GAP 7 MMOL/L (8-16); BILIRUBIN,TOTAL 0.5 mg/dL (0.2-1); BLOOD UREA NITROGEN 15 mg/dL (7-18); CALCIUM 8.5 mg/dL (8.5-10.1); CHLORIDE 103 mmol/L (98-107); CO2 27 mmol/L (21-32); CREATININE 0.6 mg/dL (0.55-1.3); GLUCOSE,RANDOM 98 mg/dL (74-106); LIPASE 195 U/L (73-393); MAGNESIUM 2.2 mg/dL (1.8-2.4); POTASSIUM 3.8 mmol/L (3.5-5.1); SGOT/AST 17 U/L (15-37); SGPT/ALT 13 U/L (13-61); SODIUM 137 mmol/L (136-145); TOT PROT 7.4 g/dl (6.4-8.2)
[2018-10-21 00:34] LABS: URINE APPEARANCE CLEAR; URINE BILIRUBIN NEGATIVE (NEGATIVE); URINE COLOR YELLOW; URINE GLUCOSE (UA) NEGATIVE (NEGATIVE); URINE KETONE NEGATIVE (NEGATIVE); URINE LEUK ESTERASE NEGATIVE (NEGATIVE); URINE NITRITE NEGATIVE (NEGATIVE); URINE PROTEIN NEGATIVE (NEGATIVE); URINE UROBILINOGEN 0.2 mg/dL (0.2-1.0)
[2018-10-21 00:37] LABS: HCG,QUALITATIVE URINE Negative
[2018-10-21 00:39] LABS: BASO % 0.3 % (0-2.0); EOS % 2.7 % (0-4.5); HEMATOCRIT 37.2 % (32.4-45.2); HEMOGLOBIN 12.2 GM/dL (10.7-15.3); LYMPH % 22.7 % (8-40); MCH 30.3 pg (25.7-33.7); MCHC 32.9 g/dl (32.0-36.0); MEAN CELL VOLUME 91.9 fl (80-96); MEAN PLT VOLUME 7.9 fl (7.5-11.1); MONO % 10.3 % (3.8-10.2); PLATELET COUNT 210 K/MM3 (134-434); RBC 4.04 M/mm3 (3.60-5.2); RDW 14.5 % (11.6-15.6); WHITE BLOOD COUNT 8.6 K/mm3 (4.0-10.0)
--- NOTE | 2018-10-21 01:39 | PDOC ---
*Physical Exam - Vital Signs Last Vital Signs Temp Pulse Resp BP Pulse Ox 98.1 F 93 H 18 117/70 100 10/20/18 21:49 10/20/18 21:49 10/20/18 21:49 10/21/18 00:03 10/20/18 21:49 ED Treatment Course - LABORATORY CBC & Chemistry Diagram: 10/20/18 23:21 10/20/18 23:21 - ADDITIONAL ORDERS Additional order review: Laboratory Results 10/21/18 10/20/18 10/20/18 00:20 23:21 23:21 PT with INR 11.80 INR 1.00 Sodium 137 Potassium 3.8 Chloride 103 Carbon Dioxide 27 Anion Gap 7 L BUN 15 Creatinine 0.6 Creat Clearance w eGFR 109.11 Random Glucose 98 Calcium 8.5 Magnesium 2.2 Total Bilirubin 0.5 AST 17 ALT 13 Alkaline Phosphatase 101 Creatine Kinase 83 Troponin I < 0.02 Total Protein 7.4 Albumin 3.2 L Lipase 195 Urine Color Yellow Urine Appearance Clear Urine pH 8.0 D Ur Specific Mayo 1.012 Urine Protein Negative Urine Glucose (UA) Negative Urine Ketones Negative Urine Blood Negative Urine Nitrite Negative Urine Bilirubin Negative Urine Urobilinogen 0.2 Ur Leukocyte Esterase Negative Urine HCG, Qual Negative 10/20/18 23:21 RBC 4.04 MCV 91.9 MCHC 32.9 RDW 14.5 MPV 7.9 Neutrophils % 64.0 D Lymphocytes % 22.7 D Monocytes % 10.3 H Eosinophils % 2.7 Basophils % 0.3 - Medications Given in the ED: ED Medications Discontinued Medications Generic Name Dose Route Start Last Admin Trade Name Freq PRN Reason Stop Dose Admin Acetaminophen 975 mg 10/20/18 22:59 10/20/18 23:25 Tylenol - PO 10/20/18 23:00 975 mg ONCE ONE Administration Medical Decision Making - Medical Decision Making 10/21/18 01:39 Case discussed with VALERIA Arevalo Agree with assessment and plan *DC/Admit/Observation/Transfer Diagnosis at time of Disposition: Anxiety - Discharge Dispostion Disposition: HOME Condition at time of disposition: Stable - Referrals Referrals: Aicha Patricio MD [Primary Care Provider] - - Patient Instructions Additional Instructions: Continue taking hydroxyzine as directed by your prescriber. Eat a low-salt diet. Keep well-hydrated. Return to the emergency department for any new or worsening symptoms. Make an appointment with your primary doctor for reevaluation the next 3 days. Thank you very much for choosing us to provide your emergent health care needs. - Post Discharge Activity
--- NOTE | 2018-10-21 10:28 | EKG ---
Test Reason : Blood Pressure : / mmHG Vent. Rate : 085 BPM Atrial Rate : 085 BPM P-R Int : 154 ms QRS Dur : 096 ms QT Int : 386 ms P-R-T Axes : 049 -06 036 degrees QTc Int : 459 ms NORMAL SINUS RHYTHM POSSIBLE LEFT ATRIAL ENLARGEMENT INCOMPLETE RIGHT BUNDLE BRANCH BLOCK WHEN COMPARED WITH ECG OF 28-SEP-2018 00:20, INCOMPLETE RIGHT BUNDLE BRANCH BLOCK IS NOW PRESENT Confirmed by PEDRO STANLEY, LILIA ([id number]) on 10/21/2018 10:28:29 AM Referred By: Confirmed By:LILIA VASQUEZ MD
== END 2018-10-21 01:50 | disposition home or self-care (01) ==
LOC: JER 21:43
DX: F41.9 Anxiety disorder, unspecified (principal)
CPT/HCPCS: 36415; 71046-TC-FY; 80053; 81003; 82550; 83690; 83735; 84484; 84703; 85025; 85610; 87086; 93005; 93010; 99281-25

== ENCOUNTER 2019-01-07 22:35 | Emergency (ER) | payer OTHER ==
[2019-01-07 22:54] VITALS: BP 129/81; PULSE 72; TEMP 97.9; BMI 28.3
--- NOTE | 2019-01-08 00:37 | PDOC ---
History of Present Illness - General Chief Complaint: Pain Stated Complaint: PAIN Time Seen by Provider: 01/07/19 23:58 History Source: Patient Exam Limitations: No Limitations - History of Present Illness Initial Comments: 01/08/19 00:13 Patient is a 44 year old female with h/o fibromylagia, gastritis c/o of generalized pain x 3 days. Patient states she woke up with the pain one morning 3 days ago and has been persistent, throbbing 8/10 and associated with feelings of weakness generalized. States she is had generalized pain with her fibromyalgia but never weakness. States she also has some nausea but no vomiting. Denies any recent illness, cough, cold, sore throat, dysuria, fever, chills. She is on no medications for her fibromyalgia currently. States she took Motrin for her symptoms and now has epigastric pain 2/2 gastritis. PMHX: as above PSOCHX: neg cig, durg, etoh ALL: oxycodone, pseudoephedrine GENERAL/CONSTITUTIONAL: No fever or chills. No weakness. No weight change. HEAD, EYES, EARS, NOSE AND THROAT: No change in vision. No ear pain or discharge. No sore throat. CARDIOVASCULAR: No chest pain or shortness of breath. RESPIRATORY: No cough, wheezing, or hemoptysis. GASTROINTESTINAL: (+) nausea, (-) vomiting, diarrhea or constipation. No rectal bleeding. GENITOURINARY: No dysuria, frequency, or change in urination. MUSCULOSKELETAL: (+) joint or muscle swelling or pain. (+) neck or back pain. SKIN AND BREASTS: No rash or easy bruising. NEUROLOGIC: No headache, vertigo, loss of consciousness, or loss of sensation. PSYCHIATRIC: No depression or anxiety. ENDOCRINE: No increased thirst. No abnormal weight change. HEMATOLOGIC/LYMPHATIC: No anemia, easy bleeding, or history of blood clots. ALLERGIC/IMMUNOLOGIC: No hives or skin allergy. No latex allergy. GENERAL: The patient is awake, alert, and fully oriented, in no acute distress. HEAD: Normal with no signs of trauma. EYES: Pupils equal, round and reactive to light, extraocular movements intact, sclera anicteric, conjunctiva clear. ENT: Ears normal, nares patent, oropharynx clear without exudates. Moist mucous membranes. NECK: Normal range of motion, supple without lymphadenopathy, JVD, or masses, (+ ) tenderness midline, and parspinal . LUNGS: Breath sounds equal, clear to auscultation bilaterally. No wheezes, and no crackles. HEART: Regular rate and rhythm, normal S1 and S2 without murmur, rub. ABDOMEN: Soft, mild epigastric tenderness, normoactive bowel sounds. No guarding, no rebound. No masses. EXTREMITIES: Normal range of motion, no edema, (+) tenderness over large joints , no redness. No clubbing or cyanosis. No cords, erythema, or tenderness. NEUROLOGICAL: Cranial nerves II through XII grossly intact. Normal speech, normal gait. PSYCH: Normal mood, normal affect. SKIN: Warm, Dry, normal turgor, no rashes or lesions noted. Past History - Past Medical History Allergies/Adverse Reactions: Allergies Allergy/AdvReac Type Severity Reaction Status Date / Time oxycodone HCl [From Percocet] Allergy Severe Swelling Verified 01/08/19 01:13 pseudoephedrine HCl Allergy Severe Elevated Verified 01/08/19 01:13 [From Sudafed] Blood Pressure Sulfa (Sulfonamide Allergy Severe Elevated Verified 01/08/19 01:13 Antibiotics) Blood [Sulfa(Sulfonamide Pressure Antibiotics)] Penicillins Allergy Unknown Verified 01/08/19 01:13 azithromycin [From Zithromax] Allergy Elevated Verified 01/08/19 01:13 Blood Pressure codeine [Codeine] AdvReac Mild Elevated Verified 01/08/19 01:13 Blood Pressure Home Medications: Ambulatory Orders Ibuprofen [Motrin -] 600 mg PO TID PRN 01/08/19 hydrOXYzine PAMOATE [Vistaril -] 25 mg PO TID PRN 01/08/19 COPD: No DVT: No Dementia: No Diabetes: No Psychiatric Problems: Yes (ANXIETY) - Immunization History Immunization Up to Date: Yes - Suicide/Smoking/Psychosocial Hx Smoking Status: No Smoking History: Never smoked Have you smoked in the past 12 months: No Number of Cigarettes Smoked Daily: 0 Cigars Per Day: 0 Hx Alcohol Use: No Drug/Substance Use Hx: No Substance Use Type: None Hx Substance Use Treatment: No *Physical Exam - Vital Signs Last Vital Signs Temp Pulse Resp BP Pulse Ox 97.9 F 72 20 129/81 98 01/07/19 22:52 01/07/19 22:52 01/07/19 22:52 01/07/19 22:52 01/07/19 22:52 ED Treatment Course - LABORATORY CBC & Chemistry Diagram: 01/08/19 00:32 01/08/19 00:38 Medical Decision Making - Medical Decision Making 01/08/19 00:13 Patient is a 44 year old female with h/o fibromylagia, gastritis c/o of generalized pain x 3 days. Patient states she woke up with the pain one morning 3 days ago and has been persistent, throbbing 8/10 and associated with feelings of weakness generalized. States she is had generalized pain with her fibromyalgia but never weakness. States she also has some nausea but no vomiting. Denies any recent illness, cough, cold, sore throat, dysuria, fever, chills. She is on no medications for her fibromyalgia currently. States she took Motrin for her symptoms and now has epigastric pain 2/2 gastritis. 1. gastritis - labs, pepcid, IVF 2. generalized body pain most likely due to fibromyalgia. treat with tylenol IV reassess 01/08/19 02:03 Patient states feeling better, labs with no acute findings normal CRP I discussed the physical exam findings, ancillary test results and final diagnoses with the patient. I answered all of the patient's questions. The patient was satisfied with the care received and felt comfortable with the discharge plan and treatment plan. The Patient agrees to follow up with the primary care physician within 24-72 hours. *DC/Admit/Observation/Transfer Diagnosis at time of Disposition: Generalized pain, Myalgia, Epigastric abdominal pain Arthralgia Qualifiers: Joint pain location: unspecified Qualified Code(s): M25.50 - Pain in unspecified joint - Discharge Dispostion Disposition: HOME Condition at time of disposition: Stable - Referrals Referrals: Aicha Patricio MD [Primary Care Provider] - - Patient Instructions Printed Discharge Instructions: DI for Gastritis, DI for Arthralgia Additional Instructions: Your Discharge Instructions: You must call primary care physician within 24 hours to arrange follow-up. Return to the Emergency Department with any new, persistent or worsening symptoms, for fever, chills, SOB, dizziness or any other concerning changes that may occur. - Post Discharge Activity
[2019-01-08] MEDS ORDERED: SODIUM CHLORIDE 0.9% 500 ML INFUS.BAG IV ONE (00:38)
[2019-01-08] MEDS ORDERED: ACETAMINOPHEN 1000 MG/100 ML VIAL (NON FORMULARY) IVPB ONE (00:38)
[2019-01-08] MEDS ORDERED: ONDANSETRON 4 MG/2 ML VIAL ONE (00:49)
[2019-01-08] MEDS ORDERED: ACETAMINOPHEN INJECTION 100 ML IVPB ONE (00:49)
[2019-01-08] MEDS ORDERED: FAMOTIDINE 20 MG/50 ML IVPB 20 MG/50 ML MG IVPB ONE ×2 (00:50)
[2019-01-08] MEDS ORDERED: ONDANSETRON 4 MG/2 ML VIAL IVPUSH ONE (00:50)
[2019-01-08 00:57] LABS: HEMATOCRIT 38.8 % (32.4-45.2); HEMOGLOBIN 12.8 GM/dL (10.7-15.3); MCH 30.2 pg (25.7-33.7); MCHC 32.9 g/dl (32.0-36.0); MEAN CELL VOLUME 91.8 fl (80-96); MEAN PLT VOLUME 7.5 fl (7.5-11.1); PLATELET COUNT 234 K/MM3 (134-434); RBC 4.23 M/mm3 (3.60-5.2); RDW 14.1 % (11.6-15.6); WHITE BLOOD COUNT 6.8 K/mm3 (4.0-10.0)
[2019-01-08 00:59] LABS: PH,URINE 5.5 (5.0-8.0); URINE APPEARANCE CLEAR; URINE BILIRUBIN NEGATIVE (NEGATIVE); URINE COLOR YELLOW; URINE GLUCOSE (UA) NEGATIVE (NEGATIVE); URINE KETONE NEGATIVE (NEGATIVE); URINE LEUK ESTERASE NEGATIVE (NEGATIVE); URINE NITRITE NEGATIVE (NEGATIVE); URINE PROTEIN NEGATIVE (NEGATIVE); URINE UROBILINOGEN 0.2 mg/dL (0.2-1.0)
[2019-01-08 01:00] LABS: HCG,QUALITATIVE URINE Negative
[2019-01-08 01:28] LABS: ALBUMIN 3.8 g/dl (3.4-5.0); BILIRUBIN,TOTAL 0.7 mg/dL (0.2-1); CALCIUM 8.9 mg/dL (8.5-10.1); CREATININE 0.7 mg/dL (0.55-1.3); POTASSIUM 4.9 mmol/L (3.5-5.1)
[2019-01-08 02:08] LABS: ERYTHROCYTE SEDIMENTATION RATE 18 mm/hr (0-20)
== END 2019-01-08 02:35 | disposition home or self-care (01) ==
LOC: JER 22:35
PROC: 3E033GC Introduction of Other Therapeutic Substance into Peripheral Vein, Percutaneous Approach (ICD-10-PCS; principal; 2019-01-07)
PROC: 3E033GC Introduction of Other Therapeutic Substance into Peripheral Vein, Percutaneous Approach (ICD-10-PCS; 2019-01-07)
PROC: 3E033NZ Introduction of Analgesics, Hypnotics, Sedatives into Peripheral Vein, Percutaneous Approach (ICD-10-PCS; 2019-01-07)
PROC: 3E0337Z Introduction of Electrolytic and Water Balance Substance into Peripheral Vein, Percutaneous Approach (ICD-10-PCS; 2019-01-07)
DX: M79.7 Fibromyalgia (principal)
CPT/HCPCS: 36415; 80053; 81003; 84703; 85027; 85651; 86140; 96365; 96375; 99282-25; J0131

== ENCOUNTER 2019-02-20 01:30 | Emergency (ER) | payer OTHER ==
[2019-02-20 01:48] VITALS: BP 119/77; PULSE 88; TEMP 98.4; BMI 27.0
== END 2019-02-20 03:00 | disposition left against medical advice (07) ==
LOC: JER 01:30
DX: Z53.21 Procedure and treatment not carried out due to patient leaving prior to being seen by health care provider (principal)
CPT/HCPCS: 99281-25

== ENCOUNTER 2019-04-12 19:45 | Emergency (ER) | payer OTHER ==
[2019-04-12 19:50] VITALS: BP 135/69; PULSE 93; TEMP 98.1; BMI 26.5
--- NOTE | 2019-04-12 19:52 | PDOC ---
Rapid Medical Evaluation Time Seen by Provider: 04/12/19 19:48 Medical Evaluation: Allergies Allergy/AdvReac Type Severity Reaction Status Date / Time oxycodone HCl [From Percocet] Allergy Severe Swelling Verified 02/20/19 01:41 pseudoephedrine HCl Allergy Severe Elevated Verified 02/20/19 01:41 [From Sudafed] Blood Pressure Sulfa (Sulfonamide Allergy Severe Elevated Verified 02/20/19 01:41 Antibiotics) Blood [Sulfa(Sulfonamide Pressure Antibiotics)] Penicillins Allergy Unknown Verified 02/20/19 01:41 azithromycin [From Zithromax] Allergy Elevated Verified 02/20/19 01:41 Blood Pressure codeine [Codeine] AdvReac Mild Elevated Verified 02/20/19 01:41 Blood Pressure 04/12/19 19:49 Patient presents to ED with complaints of: rt back pain x 6 days , seen neurologist yesterday who has scheduled nerve test on 05/12. Pt states taking motrin without relief, pt states pain is worse with ambulation, denies leg weakness, hx fibromyalgia patient on brief exam: vss, ambulatory Patient ordered for: none Patient to proceed to the ED Discharge Disposition - Diagnosis Back pain, Lumbar strain - Discharge Dispostion Disposition: HOME Condition at time of disposition: Stable - Prescriptions Prescriptions: Cyclobenzaprine HCl [Flexeril 10 mg] 10 mg PO HS PRN #10 tablet PRN Reason: Muscle Spasms Ibuprofen [Motrin -] 600 mg PO TID #30 tablet - Referrals Referrals: Levi Camacho MD, [facility] [Staff Physician] - Aicha Patricio MD [Primary Care Provider] - - Patient Instructions Additional Instructions: Please take the prescription strength Motrin and Flexeril as directed. As we discussed do not take any other antiinflamatory medications. You may take Tylenol as directed as well. Return to the emergency room should symptoms worsen and without fail, please follow up with neuro surgery in 1-2 days for further evaluation and treatment options. - Post Discharge Activity
--- NOTE | 2019-04-12 20:47 | PDOC ---
History of Present Illness - General Chief Complaint: Back Pain Stated Complaint: BODY PAIN Time Seen by Provider: 04/12/19 19:48 - History of Present Illness Initial Comments: 04/12/19 20:43 44 y/o F with LBP x 6 days which occurred after lifting a gate no radicular or systemic symptoms. Past History - Past Medical History Allergies/Adverse Reactions: Allergies Allergy/AdvReac Type Severity Reaction Status Date / Time oxycodone HCl [From Percocet] Allergy Severe Swelling Verified 02/20/19 01:41 pseudoephedrine HCl Allergy Severe Elevated Verified 02/20/19 01:41 [From Sudafed] Blood Pressure Sulfa (Sulfonamide Allergy Severe Elevated Verified 02/20/19 01:41 Antibiotics) Blood [Sulfa(Sulfonamide Pressure Antibiotics)] Penicillins Allergy Unknown Verified 02/20/19 01:41 azithromycin [From Zithromax] Allergy Elevated Verified 02/20/19 01:41 Blood Pressure codeine [Codeine] AdvReac Mild Elevated Verified 02/20/19 01:41 Blood Pressure Home Medications: Ambulatory Orders Ibuprofen [Motrin -] 600 mg PO TID PRN 01/08/19 Cyclobenzaprine HCl [Flexeril 10 mg] 10 mg PO HS PRN #10 tablet 04/12/19 Ibuprofen [Motrin -] 600 mg PO TID #30 tablet 04/12/19 COPD: No DVT: No Dementia: No Diabetes: No Psychiatric Problems: Yes (ANXIETY) - Immunization History Immunization Up to Date: Yes - Suicide/Smoking/Psychosocial Hx Smoking Status: No Smoking History: Never smoked Have you smoked in the past 12 months: No Number of Cigarettes Smoked Daily: 0 Cigars Per Day: 0 Hx Alcohol Use: No Drug/Substance Use Hx: No Substance Use Type: None Hx Substance Use Treatment: No Review of Systems - Review of Systems Constitutional: No: Fever Musculoskeletal: Yes: Back Pain *Physical Exam - Vital Signs Last Vital Signs Temp Pulse Resp BP Pulse Ox 98.1 F 93 H 18 135/69 97 04/12/19 19:47 04/12/19 19:47 04/12/19 19:47 04/12/19 19:47 04/12/19 19:47 - Physical Exam Comments: 04/12/19 20:43 Decreased ROM of the lumbar spine, no midline tenderness, +B paralumbar muscular spasm and tenderness. 5/5 strength B LE's no gross sensory or motor deficits, negative SLR NVID thighs and calf's soft and non tender. Medical Decision Making - Medical Decision Making 04/12/19 20:45 Flexeril and Motrin for lumbar strain f/u with neuro surgery *DC/Admit/Observation/Transfer Diagnosis at time of Disposition: Back pain, Lumbar strain - Discharge Dispostion Disposition: HOME Condition at time of disposition: Stable Decision to Admit order: No - Referrals Referrals: Aicha Patircio MD [Primary Care Provider] - Levi Camacho MD, FA[facility] [Staff Physician] - - Patient Instructions Additional Instructions: Please take the prescription strength Motrin and Flexeril as directed. As we discussed do not take any other antiinflamatory medications. You may take Tylenol as directed as well. Return to the emergency room should symptoms worsen and without fail, please follow up with neuro surgery in 1-2 days for further evaluation and treatment options. - Post Discharge Activity
== END 2019-04-12 20:54 | disposition home or self-care (01) ==
LOC: JERFT 19:45
DX: S39.012A Strain of muscle, fascia and tendon of lower back, initial encounter (principal); M62.830 Muscle spasm of back; X50.0XXA Overexertion from strenuous movement or load, initial encounter; Y93.89 Activity, other specified; Y92.89 Other specified places as the place of occurrence of the external cause; Y99.8 Other external cause status
CPT/HCPCS: 99282-25

== ENCOUNTER 2019-04-20 15:28 | Emergency (ER) | payer OTHER ==
--- NOTE | 2019-04-20 15:32 | PDOC ---
Rapid Medical Evaluation Chief Complaint: Pain, Acute Time Seen by Provider: 04/20/19 15:29 Medical Evaluation: Allergies Allergy/AdvReac Type Severity Reaction Status Date / Time oxycodone HCl [From Percocet] Allergy Severe Swelling Verified 02/20/19 01:41 pseudoephedrine HCl Allergy Severe Elevated Verified 02/20/19 01:41 [From Sudafed] Blood Pressure Sulfa (Sulfonamide Allergy Severe Elevated Verified 02/20/19 01:41 Antibiotics) Blood [Sulfa(Sulfonamide Pressure Antibiotics)] Penicillins Allergy Unknown Verified 02/20/19 01:41 azithromycin [From Zithromax] Allergy Elevated Verified 02/20/19 01:41 Blood Pressure codeine [Codeine] AdvReac Mild Elevated Verified 02/20/19 01:41 Blood Pressure 04/20/19 15:30 44 year old female c/o right flank pain radiating to right groin. patient reports that she has similar symptoms 4 months ago and was told she has musculoskeletal pain. PMHX; fibromyalgia A: flank pain P: ua urine Discharge Disposition - Diagnosis Flank pain - Referrals - Patient Instructions - Post Discharge Activity
[2019-04-20 15:34] VITALS: BP 115/73; PULSE 107; TEMP 98.3; BMI 26.5
[2019-04-20] MEDS ORDERED: diazePAM 5 MG TABLET PO ONE (16:22)
[2019-04-20] MEDS ORDERED: NAPROXEN 500 MG TABLET (FP) PO ONE (16:22)
--- NOTE | 2019-04-20 16:31 | PDOC ---
History of Present Illness - General Chief Complaint: Pain, Acute Stated Complaint: ABD PAIN Time Seen by Provider: 04/20/19 15:29 History Source: Patient, Old Records Exam Limitations: No Limitations - History of Present Illness Initial Comments: 04/20/19 16:25 CHIEF COMPLAINT: Lower back pain HISTORY OF PRESENT ILLNESS: 44-year-old woman past medical history of tubal ligation, fibromyalgia presents emergency Department for evaluation of right- sided lower back pain. Patient reports she was seen here for similar complaint recently was given Flexeril with minimal relief of symptoms. At that time patient was told she had a muscle spasm. Patient reports the pain is a 9/10 and radiates from her right lower back across the right hip and into the right groin. Patient reports this morning she took a hot shower instructions to muscles and she noted increased range of motion with flexion of the spine. Patient reports she has not been able to been like that in approximately 3 weeks. She denies any neurosensory deficits, saddle anesthesia, incontinence of bladder or bowel, urinary retention, foot drop, history of IV drug use or history of cancer. Patient is requesting imaging at this time. Allergies: Oxycodone, Sudafed, sulfa drugs, penicillin, azithromycin REVIEW OF SYSTEMS: GENERAL: Afebrile, denies any weakness RESPIRATORY: No cough, wheezing, or hemoptysis. CARDIAC: No chest pain or shortness of breath MUSCULOSKELETAL: see HPI SKIN : No erythema, no bruising, no deformity. GI/: Denies any abdominal pain, no urinary difficulty, incontinence or urinary retention. RECTAL: Denies any difficulty this A.m. NEUROLOGICAL: Denies any numbness or tingling. No neurosensory deficits. PHYSICAL EXAM: GENERAL: The patient is awake, alert, and fully oriented, in no acute distress. RESPIRATORY: Lungs clear bilaterally, no rhonchi wheezes or crackles CARDIAC: S1-S2 audible, no murmur rub or gallop MUSCULOSKELETAL: Pain to generalized lower back, nonradiating, no tingling or sensory deficit. Less than 2 second cap refill, +2 pedal pulses. No spinal point tenderness. +paraspinous muscle spasms to right lumbar region. Normal reflexive and no deficits to sensation or strength. Performs straight leg raises without difficulty. GI/: Abdomen soft, nontender, nondistended. No rebound tenderness. No masses palpable. RECTAL: Deferred patient with no neurological findings SKIN: Warm, Dry, normal turgor, no erythema, no edema no bruising. 04/20/19 16:30 Past History - Past Medical History Allergies/Adverse Reactions: Allergies Allergy/AdvReac Type Severity Reaction Status Date / Time oxycodone HCl [From Percocet] Allergy Severe Swelling Verified 04/20/19 15:34 pseudoephedrine HCl Allergy Severe Elevated Verified 04/20/19 15:34 [From Sudafed] Blood Pressure Sulfa (Sulfonamide Allergy Severe Elevated Verified 04/20/19 15:34 Antibiotics) Blood [Sulfa(Sulfonamide Pressure Antibiotics)] Penicillins Allergy Unknown Verified 04/20/19 15:34 azithromycin [From Zithromax] Allergy Elevated Verified 04/20/19 15:34 Blood Pressure codeine [Codeine] AdvReac Mild Elevated Verified 04/20/19 15:34 Blood Pressure Home Medications: Ambulatory Orders Ibuprofen [Motrin -] 600 mg PO TID PRN 01/08/19 Cyclobenzaprine HCl [Flexeril 10 mg] 10 mg PO HS PRN #10 tablet 04/12/19 Methocarbamol [Robaxin -] 500 mg PO BID #14 tablet 04/20/19 Naproxen [Naprosyn -] 1,000 mg PO BID #20 tablet 04/20/19 COPD: No DVT: No Dementia: No Diabetes: No Psychiatric Problems: Yes (ANXIETY) - Immunization History Immunization Up to Date: Yes - Psycho Social/Smoking Cessation Hx Smoking Status: No Smoking History: Never smoked Have you smoked in the past 12 months: No Number of Cigarettes Smoked Daily: 0 Cigars Per Day: 0 Hx Alcohol Use: No Drug/Substance Use Hx: No Substance Use Type: None Hx Substance Use Treatment: No *Physical Exam - Vital Signs Last Vital Signs Temp Pulse Resp BP Pulse Ox 98.3 F 107 H 18 115/73 97 04/20/19 15:29 04/20/19 15:29 04/20/19 15:29 04/20/19 15:29 04/20/19 15:29 Medical Decision Making - Medical Decision Making 04/20/19 16:29 A/P: 44-year-old woman history of fibromyalgia with continued right-sided lower back pain with palpable muscle spasms Urinalysis, urine culture, urine Naprosyn 500 mg orally now- little concern for given tubal ligation Valium 5 mg orally now Reassess 04/20/19 17:57 Patient reports her pain is currently 3/10 after receiving the naproxen and Valium. I will discharge the patient home with prescription for naproxen and Robaxin. I discussed the physical exam findings, ancillary test results and final diagnoses with the patient. I answered all of the patient's questions. The patient was satisfied with the care received and felt comfortable with the discharge plan and treatment plan. The patient will call their primary care physician within 24 hours to arrange follow-up and will return to the Emergency Department with any new, persistent or worsening symptoms. Portions of this note have been documented using voice recognition software. As a result, errors may occur in the source inspector process. Effort has been made to correct all grammatical and source inspector error, but some may have been missed. Discharge - Discharge Information Problems reviewed: Yes Clinical Impression/Diagnosis: Lumbar paraspinal muscle spasm Condition: Fair Disposition: HOME - Admission No - Additional Discharge Information Prescriptions: Methocarbamol [Robaxin -] 500 mg PO BID #14 tablet Naproxen [Naprosyn -] 1,000 mg PO BID #20 tablet - Follow up/Referral Referrals: Aicha Patricio MD [Primary Care Provider] - - Patient Discharge Instructions Additional Instructions: Rest, no heavy lifting or exercise until pain is resolved Hot soaks to neck and low back as often as possible/hot showers or Jacuzzis No massage or therapy until spasm is gone Continue naproxen 500mg tablets every 12 hours for the next 3 days then as needed for pain and swelling Robaxin 1000mg every 12 hours as needed for spasm If not significant improvement within 24 hours with medication and rest regime, followup with private physician for change in medications and /or therapy. - Post Discharge Activity
[2019-04-20] MEDS ORDERED: diazePAM 5 MG TABLET ONE (16:40)
[2019-04-20] MEDS ORDERED: NAPROXEN 500 MG TABLET (FP) ONE (16:40)
[2019-04-20 17:33] LABS: URINE APPEARANCE CLEAR; URINE BILIRUBIN NEGATIVE (NEGATIVE); URINE COLOR YELLOW; URINE GLUCOSE (UA) NEGATIVE (NEGATIVE); URINE KETONE NEGATIVE (NEGATIVE); URINE LEUK ESTERASE NEGATIVE (NEGATIVE); URINE NITRITE NEGATIVE (NEGATIVE); URINE PROTEIN NEGATIVE (NEGATIVE); URINE UROBILINOGEN 0.2 mg/dL (0.2-1.0)
== END 2019-04-20 18:09 | disposition home or self-care (01) ==
LOC: JER 15:28
DX: M62.830 Muscle spasm of back (principal); M79.7 Fibromyalgia; Z88.0 Allergy status to penicillin; Z88.2 Allergy status to sulfonamides; Z88.1 Allergy status to other antibiotic agents; Z88.5 Allergy status to narcotic agent
CPT/HCPCS: 81003; 84703; 87086; 99282-25

== ENCOUNTER 2019-05-09 19:08 | Emergency (ER) | payer OTHER ==
--- NOTE | 2019-05-09 19:21 | PDOC ---
Rapid Medical Evaluation Time Seen by Provider: 05/09/19 19:19 Medical Evaluation: Allergies Allergy/AdvReac Type Severity Reaction Status Date / Time oxycodone HCl [From Percocet] Allergy Severe Swelling Verified 04/20/19 15:34 pseudoephedrine HCl Allergy Severe Elevated Verified 04/20/19 15:34 [From Sudafed] Blood Pressure Sulfa (Sulfonamide Allergy Severe Elevated Verified 04/20/19 15:34 Antibiotics) Blood [Sulfa(Sulfonamide Pressure Antibiotics)] Penicillins Allergy Unknown Verified 04/20/19 15:34 azithromycin [From Zithromax] Allergy Elevated Verified 04/20/19 15:34 Blood Pressure codeine [Codeine] AdvReac Mild Elevated Verified 04/20/19 15:34 Blood Pressure 05/09/19 19:19 Pt c/o: c/o rt hip low back pain x 1 month, no improvement since last ed visit Pt on brief exam: no midline tenderness, noted rt lumbar tenderness Pt ordered for: lumbar xray Pt to proceed to the ED Discharge Disposition - Diagnosis Low back pain, Lumbosacral radiculopathy - Discharge Dispostion Disposition: HOME Condition at time of disposition: Stable - Prescriptions Prescriptions: Methylprednisolone [Medrol Dose Robert] 4 mg PO ASDIR #21 tablet - Referrals Referrals: Levi Camacho MD, FA[facility] [Staff Physician] - Aicha Patriico MD [Primary Care Provider] - - Patient Instructions Printed Discharge Instructions: Lumbar Radiculopathy, DI for Lumbar Radiculopathy Additional Instructions: Please start the Medrol Dosepak in the morning. Return to the emergency room for worsening symptoms. Do not take any other anti-inflammatories such as Advil Motrin Aleve or Naprosyn while on the Medrol Dosepak. Continue with your Flexeril. Follow-up with neurosurgery in 1 to 2 days for further evaluation and treatment options. Follow-up with neurosurgery without fail. - Post Discharge Activity
[2019-05-09 19:22] VITALS: BP 130/96; PULSE 92; TEMP 98.3; BMI 26.2
--- NOTE | 2019-05-09 20:42 | PDOC ---
History of Present Illness - General Chief Complaint: Back Pain Stated Complaint: BACK PAIN Time Seen by Provider: 05/09/19 19:19 - History of Present Illness Initial Comments: 05/09/19 20:39 44-year-old female denies comorbidities presents for evaluation of ongoing lower back pain with posterior lateral right leg radicular symptoms without loss of bowel or bladder function saddle paresthesias or systemic symptoms. This pain is going on 1 month Past History - Past Medical History Allergies/Adverse Reactions: Allergies Allergy/AdvReac Type Severity Reaction Status Date / Time oxycodone HCl [From Percocet] Allergy Severe Swelling Verified 05/09/19 19:20 pseudoephedrine HCl Allergy Severe Elevated Verified 05/09/19 19:20 [From Sudafed] Blood Pressure Sulfa (Sulfonamide Allergy Severe Elevated Verified 05/09/19 19:20 Antibiotics) Blood [Sulfa(Sulfonamide Pressure Antibiotics)] Penicillins Allergy Unknown Verified 04/20/19 15:34 azithromycin [From Zithromax] Allergy Elevated Verified 04/20/19 15:34 Blood Pressure codeine [Codeine] AdvReac Mild Elevated Verified 05/09/19 19:20 Blood Pressure Home Medications: Ambulatory Orders Ibuprofen [Motrin -] 600 mg PO TID PRN 01/08/19 Cyclobenzaprine HCl [Flexeril 10 mg] 10 mg PO HS PRN #10 tablet 04/12/19 Methocarbamol [Robaxin -] 500 mg PO BID #14 tablet 04/20/19 Naproxen [Naprosyn -] 1,000 mg PO BID #20 tablet 04/20/19 Methylprednisolone [Medrol Dose Robert] 4 mg PO ASDIR #21 tablet 05/09/19 COPD: No DVT: No Dementia: No Diabetes: No Psychiatric Problems: Yes (ANXIETY) - Immunization History Immunization Up to Date: Yes - Psycho Social/Smoking Cessation Hx Smoking Status: No Smoking History: Never smoked Have you smoked in the past 12 months: No Number of Cigarettes Smoked Daily: 0 Cigars Per Day: 0 Hx Alcohol Use: No Drug/Substance Use Hx: No Substance Use Type: None Hx Substance Use Treatment: No Review of Systems - Review of Systems Musculoskeletal: Yes: Back Pain *Physical Exam - Vital Signs Last Vital Signs Temp Pulse Resp BP Pulse Ox 98.3 F 92 H 18 130/96 100 05/09/19 19:20 05/09/19 19:20 05/09/19 19:20 05/09/19 19:20 05/09/19 19:20 - Physical Exam Comments: 05/09/19 20:40 Lumbar spine skin color and temperature normal range of motion is slightly decreased. There is no midline tenderness moderate right and left paralumbar musculature spasm and tenderness 5 out of 5 strength bilateral lower extremities without gross sensorimotor deficits thighs and calves are soft and nontender neurovascularly intact. Medical Decision Making - Medical Decision Making 05/09/19 20:40 Discussed the use of the Medrol Dosepak with patient. I did advise her to stop taking Naprosyn start the Medrol Dosepak in the morning continue with her Flexeril and follow-up with neurologic surgery Discharge - Discharge Information Problems reviewed: Yes Clinical Impression/Diagnosis: Low back pain, Lumbosacral radiculopathy Condition: Stable Disposition: HOME - Admission No - Additional Discharge Information Prescriptions: Methylprednisolone [Medrol Dose Robert] 4 mg PO ASDIR #21 tablet - Follow up/Referral Referrals: Aicha Patricio MD [Primary Care Provider] - Levi Camacho MD, FA[facility] [Staff Physician] - - Patient Discharge Instructions Patient Printed Discharge Instructions: Lumbar Radiculopathy, DI for Lumbar Radiculopathy Additional Instructions: Please start the Medrol Dosepak in the morning. Return to the emergency room for worsening symptoms. Do not take any other anti-inflammatories such as Advil Motrin Aleve or Naprosyn while on the Medrol Dosepak. Continue with your Flexeril. Follow-up with neurosurgery in 1 to 2 days for further evaluation and treatment options. Follow-up with neurosurgery without fail. - Post Discharge Activity
== END 2019-05-09 20:50 | disposition home or self-care (01) ==
LOC: JERFT 19:08
DX: M54.16 Radiculopathy, lumbar region (principal); Z88.0 Allergy status to penicillin; Z88.2 Allergy status to sulfonamides; Z88.5 Allergy status to narcotic agent; Z88.8 Allergy status to other drugs, medicaments and biological substances
CPT/HCPCS: 72100-TC-FY; 99281-25

== ENCOUNTER 2019-09-23 19:45 | Emergency (ER) | payer OTHER ==
[2019-09-23 20:03] VITALS: BP 131/79; PULSE 98; TEMP 98.8; BMI 28.5
[2019-09-23] MEDS ORDERED: ACETAMINOPHEN 500 MG TABLET (FP) PO ONE (21:03)
[2019-09-23] MEDS ORDERED: ACETAMINOPHEN 325 MG TABLET (FP) ONE (21:06)
--- NOTE | 2019-09-23 21:09 | PDOC ---
History of Present Illness - General Chief Complaint: Cold Symptoms Stated Complaint: FEVER/HEADACHE/COUGHING Time Seen by Provider: 09/23/19 20:13 History Source: Patient Exam Limitations: No Limitations - History of Present Illness Initial Comments: 09/23/19 21:04 HISTORY OF PRESENT ILLNESS: 44-year-old woman past medical history of fibromyalgia who presents emergency department for evaluation of 3 days of fevers, chills, body aches, sore throat, nasal congestion, bilateral ear itching. Patient has been taking [id number] remedies like Tylenol, Zyrtec and Robitussin with relief of symptoms. Patient recently had a trip to [facility] where she was in [place] and [facility] with her . Patient reports having unprotected sex with her who lives in [facility]. No sick contacts. PAST MEDICAL HISTORY: Denies past medical history SURGICAL HISTORY: Denies ALLERGIES: No known drug allergies REVIEW OF SYSTEMS General/Constitutional: +fever. Denies weakness, weight change. HEENT: Denies change in vision. Denies ear pain or discharge. +sore throat. Cardiovascular: Denies chest pain or shortness of breath. Respiratory: Dry productive cough. Denies wheezing, or hemoptysis. Gastrointestinal: Denies nausea, vomiting, diarrhea or constipation. Denies rectal bleeding. Genitourinary: Denies dysuria, frequency, or change in urination. Musculoskeletal: +myalgias. Denies neck or back pain. Skin and breasts: Denies rash or easy bruising. Neurologic: Denies headache, vertigo, loss of consciousness, or loss of sensation. Psychiatric: Denies depression or anxiety. Endocrine: Denies increased thirst. Denies abnormal weight change. Hematologic/Lymphatic: Denies anemia, easy bleeding, or history of blood clots. Allergic/Immunologic: Denies hives or skin allergy. Denies latex allergy. PHYSICAL EXAM General Appearance: Well-appearing, appropriately dressed. No apparent distress , no intoxication. HEENT: EOMI, PERRLA, normal voice, TMs retracted bilaterally. No conjunctival pallor. No photophobia, scleral icterus. Oropharynx erythematous without exudate. Cobblestoning noted in the posterior. Aphthous ulcer present to the right buccal surface. No nasal discharge present. Neck: Supple. Trachea midline. No tenderness, rigidity, carotid bruit, stridor , or thyromegaly. Nontender anterior cervical lymphadenopathy present. Respiratory/Chest: Lungs CTAB. No shortness of breath, chest tenderness, respiratory distress, accessory muscle use. No crackles, rales, rhonchi, stridor , wheezing, dullness Cardiovascular: RRR. S1, S2. No JVD, murmur, bradycardia, tachycardia. Vascular Pulses: Dorsalis-Pedis (R): 2+, Dorsalis-Pedis (L): 2+ Gastrointestinal/Abdominal: Normal bowel sounds. Abdomen soft, non-distended. No tenderness or rebound tenderness. No organomegaly, pulsatile mass, guarding, hernia, hepatomegaly, splenomegaly. Musculoskeletal/Extremities: Normal inspection. FROM of all extremities, normal capillary refill. Pelvis Stable. No CVA tenderness. No tenderness to extremities, pedal edema, swelling, erythema or deformity. Integumentary: Appropriate color, dry, warm. No cyanosis, erythema, jaundice or rash Neurologic: family services assistant II-XII intact. Fully oriented, alert. Appropriate mood/affect. Motor strength 5/5. No appreciable EOM palsy, facial droop or sensory deficit. Past History - Past Medical History Allergies/Adverse Reactions: Allergies Allergy/AdvReac Type Severity Reaction Status Date / Time oxycodone HCl [From Percocet] Allergy Severe Swelling Verified 09/23/19 20:11 pseudoephedrine HCl Allergy Severe Elevated Verified 09/23/19 20:11 [From Sudafed] Blood Pressure Sulfa (Sulfonamide Allergy Severe Elevated Verified 09/23/19 20:11 Antibiotics) Blood [Sulfa(Sulfonamide Pressure Antibiotics)] Penicillins Allergy Unknown Verified 09/23/19 20:11 azithromycin [From Zithromax] Allergy Elevated Verified 09/23/19 20:11 Blood Pressure codeine [Codeine] AdvReac Mild Elevated Verified 09/23/19 20:11 Blood Pressure Home Medications: Ambulatory Orders Hydroxyzine HCl 25 mg PO ASDIR 09/23/19 COPD: No DVT: No Dementia: No Diabetes: No Psychiatric Problems: Yes (ANXIETY) - Immunization History Immunization Up to Date: Yes - Psycho Social/Smoking Cessation Hx Smoking Status: No Smoking History: Never smoked Have you smoked in the past 12 months: No Number of Cigarettes Smoked Daily: 0 Cigars Per Day: 0 Information on smoking cessation initiated: No Hx Alcohol Use: No Drug/Substance Use Hx: No Substance Use Type: None Hx Substance Use Treatment: No *Physical Exam - Vital Signs Last Vital Signs Temp Pulse Resp BP Pulse Ox 98.8 F 98 H 17 131/79 100 09/23/19 19:58 09/23/19 19:58 09/23/19 19:58 09/23/19 19:58 09/23/19 19:58 Medical Decision Making - Medical Decision Making 09/23/19 21:10 A/P: 44-year-old woman with medical history of fibromyalgia with flulike symptoms for the past 3 to 4 days This patient is outside window for treatment I will defer testing at this time. Supportive treatment has been discussed with the patient who has verbalized understanding of discharge instructions. It was explained to the patient that acute HIV testing could have similar symptoms and as she has been having unprotected sex with her [place] I did recommend HIV testing but patient has refused at this time. Tylenol 975 mg orally now I discussed the physical exam findings, ancillary test results and final diagnoses with the patient. I answered all of the patient's questions. The patient was satisfied with the care received and felt comfortable with the discharge plan and treatment plan. The patient will call their primary care physician within 24 hours to arrange follow-up and will return to the Emergency Department with any new, persistent or worsening symptoms. Portions of this note have been documented using voice recognition software. As a result, errors may occur in the actuarial director process. Effort has been made to correct all grammatical and actuarial director error, but some may have been missed which may produce sporadic inaccurate actuarial director or nonsensical phrases. Discharge - Discharge Information Problems reviewed: Yes Clinical Impression/Diagnosis: Viral upper respiratory illness, Aphthous ulcer of mouth Condition: Fair Disposition: HOME - Admission No - Follow up/Referral Referrals: Aicha Patricio MD [Primary Care Provider] - - Patient Discharge Instructions Additional Instructions: Rest, drink lots of fluids: Teas, water, soups, Pedialyte Saltwater gargles Steamy showers/seem to face break up mucus Avoid contact with others until fevers and cough resolved Lots of handwashing and good hygiene Continue [id number] medications for symptomatic relief Tylenol or Motrin for fever and pain Followup with private physician in one to 2 days as needed Return to emergency department for worsened symptoms, fevers, dehydration - Post Discharge Activity
== END 2019-09-23 21:57 | disposition home or self-care (01) ==
LOC: JERFT 19:45
DX: J06.9 Acute upper respiratory infection, unspecified (principal); B97.89 Other viral agents as the cause of diseases classified elsewhere; K12.0 Recurrent oral aphthae; F41.9 Anxiety disorder, unspecified; Z88.1 Allergy status to other antibiotic agents; Z88.2 Allergy status to sulfonamides; Z88.8 Allergy status to other drugs, medicaments and biological substances; Z88.5 Allergy status to narcotic agent
CPT/HCPCS: 99282-25

== ENCOUNTER 2019-09-25 02:30 | Emergency (ER) | payer OTHER ==
[2019-09-25 02:37] VITALS: BP 129/80; PULSE 91; TEMP 97.8; BMI 28.3
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
[2019-09-25] MEDS ORDERED: ACETAMINOPHEN 325 MG TABLET (FP) PO ONE (02:39)
[2019-09-25] MEDS ORDERED: IBUPROFEN 600 MG TABLET (FP) PO ONE ×2 (02:39→02:42)
[2019-09-25] MEDS ORDERED: ONDANSETRON *ODT* 4 MG TABLET SL ONE (02:39)
[2019-09-25] MEDS ORDERED: ONDANSETRON *ODT* 4 MG TABLET ONE (02:42)
[2019-09-25] MEDS ORDERED: ACETAMINOPHEN 325 MG TABLET (FP) ONE (02:42)
--- NOTE | 2019-09-25 02:54 | PDOC ---
Attending Attestation - Resident Resident Name: Vamshi Toledoa - ED Attending Attestation I have performed the following: I have examined & evaluated the patient, The case was reviewed & discussed with the resident, I agree w/resident's findings & plan - HPI HPI: 09/25/19 04:22 Pt comes in because she feels unwell. SHe was diagnosed with the "flu" 2 days ago here in fast track. 09/25/19 04:42 Pt was never hydrated and flu culture was never sent. Pt returned in August from a trip to [facility] and [place]. As far as she knows she was not exposed to Covid-19. Her son recently got a viral syndrome and she got it from her son. Pt is anxious because her face is flushed and she has pimples on her cheeks. She feels unwell, so she came in. - Physicial Exam PE: 09/25/19 04:46 Afebrile tachy on arrival Pt ate a sandwich here and feels better. HR is 90 now lungs CTAb abd soft NT ND no flank pain Pt has a rash on her cheeks HEENT normal moving all extremities; neuro intact - Medical Decision Making 09/25/19 04:47 Pt's labs are ok UA normal IV NSS started. 1 L will be infused. 09/29/19 22:37 Pt reported improvement of symptoms. Pt will be called for hepatitis/HIV lab work. Pt requesting discharge. Pt reported she feels that she has a vaginal yeast infection as it is itching her. My examination was not consistent with yeast, but pt was concerned and continued to request Lotrimin. Lotrimin 7 day intravaginal cream Q24H sent to pharmacy. DISPO: Discharge
[2019-09-25 03:29] LABS: PH,URINE 5.5 (5.0-8.0); URINE APPEARANCE CLEAR; URINE BILIRUBIN NEGATIVE (NEGATIVE); URINE COLOR YELLOW; URINE GLUCOSE (UA) NEGATIVE (NEGATIVE); URINE KETONE NEGATIVE (NEGATIVE); URINE LEUK ESTERASE NEGATIVE (NEGATIVE); URINE NITRITE NEGATIVE (NEGATIVE); URINE PROTEIN NEGATIVE (NEGATIVE); URINE UROBILINOGEN 0.2 mg/dL (0.2-1.0)
[2019-09-25 03:49] LABS: BASO % 1.4 % (0-2.0); EOS % 3.9 % (0-4.5); HEMATOCRIT 40.6 % (32.4-45.2); HEMOGLOBIN 13.7 GM/dL (10.7-15.3); LYMPH % 26.7 % (8-40); MCH 31.2 pg (25.7-33.7); MCHC 33.8 g/dl (32.0-36.0); MEAN CELL VOLUME 92.3 fl (80-96); MEAN PLT VOLUME 7.5 fl (7.5-11.1); MONO % 10.8 % (3.8-10.2); NEUT % 57.2 % (42.8-82.8); PLATELET COUNT 220 K/MM3 (134-434); RBC 4.39 M/mm3 (3.60-5.2); RDW 13.6 % (11.6-15.6); WHITE BLOOD COUNT 8.6 K/mm3 (4.0-10.0)
[2019-09-25 04:17] LABS: ALBUMIN 3.5 g/dl (3.4-5.0); BILIRUBIN,TOTAL 0.5 mg/dL (0.2-1); BLOOD UREA NITROGEN 13.7 mg/dL (7-18); CALCIUM 8.1 mg/dL (8.5-10.1); CREATININE 0.7 mg/dL (0.55-1.3); POTASSIUM 4.2 mmol/L (3.5-5.1); TOT PROT 7.6 g/dl (6.4-8.2)
[2019-09-25] MEDS ORDERED: SODIUM CHLORIDE 1,000 ML IV STA (04:29)
== END 2019-09-25 06:20 | disposition home or self-care (01) ==
LOC: JER 02:30
PROC: 3E0337Z Introduction of Electrolytic and Water Balance Substance into Peripheral Vein, Percutaneous Approach (ICD-10-PCS; principal; 2019-09-25)
DX: B34.9 Viral infection, unspecified (principal); L29.2 Pruritus vulvae; F41.9 Anxiety disorder, unspecified; M79.7 Fibromyalgia; Z88.2 Allergy status to sulfonamides; Z88.8 Allergy status to other drugs, medicaments and biological substances
CPT/HCPCS: 36415; 80053; 80074; 81003; 84703; 85025; 87086; 87389; 87491; 87591; 96360; 99283-25; J7030; Q0162

== ENCOUNTER 2019-10-04 05:38 | Emergency (ER) | payer OTHER ==
[2019-10-04 06:43] VITALS: BP 141/84; PULSE 84; TEMP 97.9; BMI 26.5
--- NOTE | 2019-10-04 07:19 | PDOC ---
History of Present Illness - General Chief Complaint: Cold Symptoms Stated Complaint: FLU-LIKE SYMPTOMS Time Seen by Provider: 10/04/19 07:19 - History of Present Illness Initial Comments: 44 year old female with PMH of fibromyalgia and chronic rhinorrhea presenting with bilateral lower chest pain and lower paraspinal back pain for the past week. States that she had similar symptoms last week and was discharged after being re-hydrated and given PO medication. Today her main reason for presentation is that she wants to know what the source of her back pain is. She describes the pain as bilateral, lower, and pleuritic. She has taken Ibuprofen at home with good relief of her symptoms but hasn't taken any today or yesterday. Denies fevers, persistent cough, palpitations, SOB, or other symptoms. Her travel history includes [place] and [place] one month prior. Denie any sick contact and doesn't work because she is on disability for her fibromyalgia. 10/04/19 07:42 Past History - Past Medical History Allergies/Adverse Reactions: Allergies Allergy/AdvReac Type Severity Reaction Status Date / Time oxycodone HCl [From Percocet] Allergy Severe Swelling Verified 10/04/19 06:43 pseudoephedrine HCl Allergy Severe Elevated Verified 10/04/19 06:43 [From Sudafed] Blood Pressure Sulfa (Sulfonamide Allergy Severe Elevated Verified 10/04/19 06:43 Antibiotics) Blood [Sulfa(Sulfonamide Pressure Antibiotics)] Penicillins Allergy Unknown Verified 10/04/19 06:43 azithromycin [From Zithromax] Allergy Elevated Verified 10/04/19 06:43 Blood Pressure codeine [Codeine] AdvReac Mild Elevated Verified 10/04/19 06:43 Blood Pressure Home Medications: Ambulatory Orders Hydroxyzine HCl 25 mg PO HS 09/23/19 Clotrimazole [Lotrimin 1% Cream -] 1 applic TP Q24H #7 tube 09/25/19 Paroxetine HCl [Paxil -] 20 mg PO DAILY 09/25/19 traZODone HCL [Trazodone HCl] 50 mg PO HS 09/25/19 COPD: No DVT: No Dementia: No Diabetes: No Psychiatric Problems: Yes (ANXIETY) - Immunization History Immunization Up to Date: No - Psycho Social/Smoking Cessation Hx Smoking Status: No Smoking History: Never smoked Have you smoked in the past 12 months: No Number of Cigarettes Smoked Daily: 0 Cigars Per Day: 0 Hx Alcohol Use: No Drug/Substance Use Hx: No Substance Use Type: None Hx Substance Use Treatment: No Review of Systems - Review of Systems Constitutional: No: Chills, Diaphoresis, Fever, Night Sweats, Weakness Respiratory: No: Cough, Orthopnea, Shortness of Breath, SOB with Exertion, SOB at Rest, Productive cough, Hemoptysis Cardiac (ROS): No: Chest Pain, Edema, Irregular Heart Rate, Lightheadedness, Palpitations, Syncope, Chest Tightness ABD/GI: No: Diarrhea, Nausea, Vomiting : No: Burning, Dysuria, Discharge Musculoskeletal: Yes: Back Pain. No: Joint Pain, Muscle Pain, Muscle Weakness Integumentary: No: Bruising, Change in Color, Erythema, Flushing Neurological: No: Headache, Numbness, Paresthesia Psychiatric: Yes: Anxiety Hematologic/Lymphatic: No: Anemia, Blood Clots, Easy Bleeding *Physical Exam - Vital Signs Last Vital Signs Temp Pulse Resp BP Pulse Ox 97.9 F 84 18 141/84 98 10/04/19 05:45 10/04/19 05:45 10/04/19 05:45 10/04/19 05:45 10/04/19 05:45 - Physical Exam General Appearance: Yes: Nourished, Appropriately Dressed. No: Apparent Distress HEENT: positive: EOMI, SHAY, Normal ENT Inspection, Normal Voice Neck: positive: Trachea midline, Normal Thyroid, Supple. negative: Tender, Rigid Respiratory/Chest: positive: Lungs Clear, Normal Breath Sounds. negative: Chest Tender, Respiratory Distress, Accessory Muscle Use Cardiovascular: positive: Regular Rhythm, Regular Rate Gastrointestinal/Abdominal: positive: Normal Bowel Sounds, Flat, Soft. negative: Tender Lymphatic: negative: Adenopathy, Tenderness Musculoskeletal: negative: Normal Inspection (Paraspinal back tenderness), CVA Tenderness Extremity: positive: Normal Capillary Refill, Normal Inspection, Normal Range of Motion. negative: Tender Integumentary: positive: Normal Color, Dry, Warm Neurologic: positive: Fully Oriented, Alert, Normal Mood/Affect, Normal Response, Motor Strength 5/5 Medical Decision Making - Medical Decision Making 44 year old female with PMH of fibromyalgia and anxiety presenting with non- specific paraspinal tenderness and posterior/ lateral rib pain. Denies fevers, chills, nausea, vomiting, or consistent cough. No sick contacts or current acute sick symptoms. 10/04/19 07:59 Patient seemingly left before her CXR or a re-evalaution. We called for the patient, checked the restrooms, and the waiting rooms. 10/04/19 09:36 Discharge - Discharge Information Problems reviewed: Yes Clinical Impression/Diagnosis: Back pain Condition: Stable Disposition: ELOPED - Admission No - Follow up/Referral Referrals: Aicha Patricio MD [Primary Care Provider] - - Patient Discharge Instructions - Post Discharge Activity
[2019-10-04] MEDS ORDERED: ACETAMINOPHEN 500 MG TABLET (FP) PO ONE ×2 (07:41→08:15)
[2019-10-04] MEDS ORDERED: IBUPROFEN 600 MG TABLET (FP) PO ONE ×2 (07:41→08:11)
[2019-10-04] MEDS ORDERED: ACETAMINOPHEN 325 MG TABLET (FP) ONE (08:10)
[2019-10-04 08:25] LABS: EPI CELLS 0.7 /HPF (0-5/HPF); HYALINE CASTS 1 /lpf (0-8); URINE APPEARANCE CLEAR; URINE BACTERIA 3.8 /hpf (NEGATIVE); URINE BILIRUBIN NEGATIVE (NEGATIVE); URINE COLOR YELLOW; URINE GLUCOSE (UA) NEGATIVE (NEGATIVE); URINE KETONE NEGATIVE (NEGATIVE); URINE LEUK ESTERASE NEGATIVE (NEGATIVE); URINE NITRITE NEGATIVE (NEGATIVE); URINE PROTEIN NEGATIVE (NEGATIVE); URINE RBC 671 /hpf (0-4); URINE UROBILINOGEN 0.2 mg/dL (0.2-1.0); URINE WBC 2 /hpf (0-5)
[2019-10-04 10:29] LABS: HCG,QUALITATIVE URINE Negative
--- NOTE | 2019-10-07 11:28 | EKG ---
Test Reason : Blood Pressure : / mmHG Vent. Rate : 077 BPM Atrial Rate : 077 BPM P-R Int : 156 ms QRS Dur : 096 ms QT Int : 402 ms P-R-T Axes : 050 002 027 degrees QTc Int : 454 ms NORMAL SINUS RHYTHM POSSIBLE LEFT ATRIAL ENLARGEMENT BORDERLINE ECG WHEN COMPARED WITH ECG OF 20-OCT-2018 21:39, INCOMPLETE RIGHT BUNDLE BRANCH BLOCK IS NO LONGER PRESENT Confirmed by MD Konstantin, Simone ([id number]) on 10/07/2019 11:28:26 AM Referred By: Confirmed By:Simone Pryor MD
== END 2019-10-04 10:01 | disposition left against medical advice (07) ==
LOC: JER 05:38
DX: M54.9 Dorsalgia, unspecified (principal); Z88.8 Allergy status to other drugs, medicaments and biological substances; M79.7 Fibromyalgia; F41.9 Anxiety disorder, unspecified
CPT/HCPCS: 81003; 84703; 93005; 93010; 99283-25

== ENCOUNTER 2020-01-22 01:04 | Emergency (ER) | payer OTHER ==
[2020-01-22 01:36] VITALS: BP 141/82; PULSE 93; TEMP 99; BMI 28.3
[2020-01-22] MEDS ORDERED: ACETAMINOPHEN 325 MG TABLET (FP) PO ONE (02:03)
--- NOTE | 2020-01-22 02:03 | PDOC ---
History of Present Illness - General Chief Complaint: Pain, Acute Stated Complaint: ABDOMINAL PAIN,DIARRHEA,HEADACHE Time Seen by Provider: 01/22/20 01:50 History Source: Patient Exam Limitations: No Limitations - History of Present Illness Initial Comments: Pt is a 45 yo F, with PMH of fibromyalgia and anxiety, who is presenting via EMS from home after loose stool from antibiotic use. Pt states he was provided ciprofloxacin by her PCP's office 3 days ago, and this evening, had generalized abdominal cramping and 2 episodes of loose brown stool, which relieved the abdominal pain. Pt was taking abx for concern of strep throat, although pt denies she has not had a throat culture or swab done. Pt also endorses mild headache. Pt denies any fevers/chills, vision changes, syncope, chest pain, palpitations, SOB, nausea/vomiting, urinary symptoms, or leg swelling. Allergies: NKDA Social: Pt denies any cigarette, alcohol, or drug use. Pt denies any recent travel or sick contacts. Surgical: no relevant history. Family: no relevant history. 01/22/20 05:23 01/22/20 06:03 Past History - Travel History Traveled outside of the country in the last 30 days: No Close contact w/someone who was outside of country & ill: No - Medical History Allergies/Adverse Reactions: Allergies Allergy/AdvReac Type Severity Reaction Status Date / Time oxycodone HCl [From Percocet] Allergy Severe Swelling Verified 10/04/19 06:43 pseudoephedrine HCl Allergy Severe Elevated Verified 10/04/19 06:43 [From Sudafed] Blood Pressure Sulfa (Sulfonamide Allergy Severe Elevated Verified 10/04/19 06:43 Antibiotics) Blood [Sulfa(Sulfonamide Pressure Antibiotics)] Penicillins Allergy Unknown Verified 10/04/19 06:43 azithromycin [From Zithromax] Allergy Elevated Verified 10/04/19 06:43 Blood Pressure codeine [Codeine] AdvReac Mild Elevated Verified 10/04/19 06:43 Blood Pressure Home Medications: Ambulatory Orders Hydroxyzine HCl 25 mg PO HS 09/23/19 Clotrimazole [Lotrimin 1% Cream -] 1 applic TP Q24H #7 tube 09/25/19 Paroxetine HCl [Paxil -] 20 mg PO DAILY 09/25/19 traZODone HCL [Trazodone HCl] 50 mg PO HS 09/25/19 Amoxicillin - [Amoxicillin 500mg Capsule -] 500 mg PO BID 10 Days #20 capsule 01/22/20 COPD: No DVT: No Dementia: No Diabetes: No Psychiatric Problems: Yes (ANXIETY) - Immunization History Immunization Up to Date: No - Psycho-Social/Smoking History Smoking Status: No Smoking History: Unknown if ever smoked Have you smoked in the past 12 months: No Number of Cigarettes Smoked Daily: 0 Cigars Per Day: 0 - Substance Abuse Hx (Audit-C & DAST Scrn) How often the patient has a drink containing alcohol: Monthly or less How often the patient has six or more drinks on one occasion: Never Score: In Men: 4 or > Positive; In Women: 3 or > Positive: 1 Screen Result (Pos requires Nsg. Audit-10AR): Negative In the last yr the pt used illegal drug/Rx for NonMed reason: No Score: Yes response is considered Positive: 0 Screen Result (Positive result requires Nsg. DAST-10): Negative Review of Systems - Review of Systems Able to Perform ROS?: Yes Is the patient limited Belgian proficient: No Constitutional: Yes: Weight Stable. No: Chills, Diaphoresis, Fever, Loss of Appetite, Malaise, Weakness HEENTM: No: Recent change in vision, Nose Congestion, Throat Pain, Throat Swelling, Difficulty Swallowing Respiratory: No: Cough, Orthopnea, Shortness of Breath Cardiac (ROS): No: Chest Pain, Edema, Irregular Heart Rate, Lightheadedness, Palpitations, Syncope, Chest Tightness ABD/GI: Yes: See HPI, Diarrhea, Abdominal cramping. No: Abdominal Distended, Constipated, Nausea, Poor Appetite, Poor Fluid Intake, Vomiting : No: Burning, Dysuria, Frequency, Pain, Urgency Musculoskeletal: No: Back Pain, Muscle Pain Integumentary: No: Rash Neurological: Yes: Headache. No: Numbness, Weakness, Unsteady Gait, Dizziness Psychiatric: No: Sleep Pattern Change, Change in Appetite Endocrine: No: Increased Urine, Change in Weight Hematologic/Lymphatic: No: Anemia, Blood Clots, Easy Bleeding All Other Systems: Reviewed and Negative *Physical Exam - Vital Signs Last Vital Signs Temp Pulse Resp BP Pulse Ox 99.0 F 93 H 18 141/82 95 01/22/20 01:22 01/22/20 01:22 01/22/20 01:22 01/22/20 01:22 01/22/20 01:22 - Physical Exam Vitals stable, pt afebrile. Pt in NAD, overweight body habitus. Pt alert and oriented x3. support service tech generally intact, muscular strength and sensation intact. No midline spinal tenderness, step-offs, or crepitus. Head normocephalic, atraumatic. Eyes PERRLA, EOMI. Moist oral mucosa. Petechiae in posterior oropharynx, with tonsillar erythema and edema. No exudates noted. Submandibular LAD L>R. No nasal congestion. Hearing intact. Clear heart sounds, S1/S2, no JVD, b/l pedal edema, or heart murmur. Clear lung sounds, no respiratory distress, wheezes, crackles, or accessory muscle use. No abdominal or CVA tenderness to palpation, no rebound, no guarding. Abdomen soft, non-distended, and with normoactive bowel sounds. Skin without jaundice or rash. 01/22/20 06:08 Medical Decision Making - Medical Decision Making Pt was seen at bedside, also will be seen by attending Dr. Ruiz. Pt presenting with loose stool and abdominal cramping (now resolved) consistent with adverse reaction to ciprofloxacin. Pt has been tolerating PO intake, VSS, abdomen soft and non-tender. Oral exam concerning for strep throat. Rapid strep and throat culture sent. Provided 650 mg PO tylenol for improvement of headache. Will continue to reassess pt and monitor for symptomatic improvement. 01/22/20 06:10 Rapid strep positive -- providing amoxicillin. Pt has documented allergy to PCN -- confirmed symptoms were likely not related to her taking PCN ("yellow eye drainage"). Discussed adverse drug reactions vs allergies with pt. Pt tolerated PO intake in ED. Pt safe for d/c to home with PCP f/u. Advised discontinuing ciprofloxacin and started amoxicillin. Pt was not seen to have any drug reaction while in the ED. Strict return precautions provided with pt understanding. 01/22/20 06:11 Discharge - Discharge Information Problems reviewed: Yes Clinical Impression/Diagnosis: Loose stools, Strep pharyngitis Adverse effects of medication Qualifiers: Encounter type: initial encounter Qualified Code(s): T50.905A - Adverse effect of unspecified drugs, medicaments and biological substances, initial encounter Condition: Good Disposition: HOME - Admission No - Additional Discharge Information Prescriptions: Amoxicillin - [Amoxicillin 500mg Capsule -] 500 mg PO BID 10 Days #20 capsule - Follow up/Referral Referrals: Jasmin Singh MD [Primary Care Provider] - - Patient Discharge Instructions Patient Printed Discharge Instructions: DI for Adverse Drug Reaction -- GI Intolerance Additional Instructions: You were seen in the ER today for an adverse reaction to ciprofloxacin. You have strep throat infection. I have sent antibiotics to your pharmacy, please take these as prescribed. Please follow-up with your primary care doctor as needed to discuss your visit and make sure your symptoms have improved. Please return to the ER if you have any worsening pain, development of fevers or chills, loss of consciousness, inability to tolerate food or fluids, or any other concerns. - Post Discharge Activity
--- NOTE | 2020-01-22 02:08 | PDOC ---
Attending Attestation - Resident Resident Name: Annette Todd - ED Attending Attestation I have performed the following: I have examined & evaluated the patient, The case was reviewed & discussed with the resident, I agree w/resident's findings & plan, Exceptions are as noted - HPI HPI: 45 yo F history fibromyalgia, anxiety, presents via EMS after loose stools at home. She states she was placed on cipro for presumed strep pharyngitis by her PMD. Patient states the cipro was given to cover urine as well. She states she had abdominal cramping and loose stools x2, no vomiting, no fevers. - Physicial Exam PE: GENERAL: Awake, alert, and fully oriented, in no acute distress HEAD: No signs of trauma EYES: PERRLA, EOMI, sclera anicteric, conjunctiva clear ENT: Auricles normal inspection, hearing grossly normal, nares patent, oropharynx erythematous without exudates. +Tonsillar hypertrophy B/L. Moist mucosa NECK: Normal ROM, supple. +Anterior cervical lymphadenopathy. No JVD or masses LUNGS: Breath sounds equal, clear to auscultation bilaterally. No wheezes, and no crackles HEART: Regular rate and rhythm, normal S1 and S2, no murmurs, rubs or gallops ABDOMEN: Soft, nontender, normoactive bowel sounds. No guarding, no rebound. No masses EXTREMITIES: Normal range of motion, no edema. No clubbing or cyanosis. No cords, erythema, or tenderness NEUROLOGICAL: Cranial nerves II through XII grossly intact. Normal speech, normal gait. Motor and sensation intact SKIN: Warm, dry, normal turgor, no rashes or lesions noted. - Medical Decision Making Rapid strep positive. Will treat with abx that are appropriate for pharyngitis. Discharge - Discharge Information Problems reviewed: Yes Clinical Impression/Diagnosis: Loose stools, Strep pharyngitis Adverse effects of medication Qualifiers: Encounter type: initial encounter Qualified Code(s): T50.905A - Adverse effect of unspecified drugs, medicaments and biological substances, initial encounter Condition: Good Disposition: HOME - Additional Discharge Information Prescriptions: Amoxicillin - [Amoxicillin 500mg Capsule -] 500 mg PO BID 10 Days #20 capsule - Follow up/Referral Referrals: Jasmin Singh MD [Primary Care Provider] - - Patient Discharge Instructions Patient Printed Discharge Instructions: DI for Adverse Drug Reaction -- GI Intolerance Additional Instructions: You were seen in the ER today for an adverse reaction to ciprofloxacin. You have strep throat infection. I have sent antibiotics to your pharmacy, please take these as prescribed. Please follow-up with your primary care doctor as needed to discuss your visit and make sure your symptoms have improved. Please return to the ER if you have any worsening pain, development of fevers or chills, loss of consciousness, inability to tolerate food or fluids, or any other concerns. - Post Discharge Activity
[2020-01-22] MEDS ORDERED: ACETAMINOPHEN 325 MG TABLET (FP) ONE (02:13)
[2020-01-22] MEDS ORDERED: AMOXICILLIN 500 MG CAPSULE (FP) PO ONE ×2 (02:41→02:48)
[2020-01-22] MEDS ORDERED: AMOXICILLIN ORAL SUSPENSION - 125 MG/5 ML PO ONE (02:43)
[2020-01-22] MEDS ORDERED: AMOXICILLIN ORAL SUSPENSION - 250 MG/5 ML ONE (02:45)
[2020-01-22] MEDS ORDERED: AMOXICILLIN 500 MG CAPSULE (FP) ONE (02:49)
== END 2020-01-22 03:10 | disposition home or self-care (01) ==
LOC: JER 01:04
DX: T50.905A Adverse effect of unspecified drugs, medicaments and biological substances, initial encounter (principal); R19.7 Diarrhea, unspecified; J02.0 Streptococcal pharyngitis
CPT/HCPCS: 87880; 99283-25

== ENCOUNTER 2020-05-02 01:57 | Emergency (ER) | payer OTHER ==
[2020-05-02 02:16] VITALS: BP 114/77; PULSE 95; TEMP 98.7; BMI 27.5
--- NOTE | 2020-05-02 02:24 | PDOC ---
History of Present Illness - General Chief Complaint: Weakness Stated Complaint: WEAKNESS,PAIN Time Seen by Provider: 05/02/20 02:23 Past History - Medical History Allergies/Adverse Reactions: Allergies Allergy/AdvReac Type Severity Reaction Status Date / Time oxycodone HCl [From Percocet] Allergy Severe Swelling Verified 05/02/20 02:15 pseudoephedrine HCl Allergy Severe Elevated Verified 05/02/20 02:15 [From Sudafed] Blood Pressure Sulfa (Sulfonamide Allergy Severe Elevated Verified 05/02/20 02:15 Antibiotics) Blood [Sulfa(Sulfonamide Pressure Antibiotics)] Penicillins Allergy Unknown Verified 05/02/20 02:15 azithromycin [From Zithromax] Allergy Elevated Verified 05/02/20 02:15 Blood Pressure codeine [Codeine] AdvReac Mild Elevated Verified 05/02/20 02:15 Blood Pressure Home Medications: Ambulatory Orders Hydroxyzine HCl 25 mg PO HS 09/23/19 Clotrimazole [Lotrimin 1% Cream -] 1 applic TP Q24H #7 tube 09/25/19 Paroxetine HCl [Paxil -] 20 mg PO DAILY 09/25/19 traZODone HCL [Trazodone HCl] 50 mg PO HS 09/25/19 Amoxicillin - [Amoxicillin 500mg Capsule -] 500 mg PO BID 10 Days #20 capsule 01/22/20 COPD: No DVT: No Dementia: No Diabetes: No Psychiatric Problems: Yes (ANXIETY) - Reproductive History Is Patient Now?: No - Immunization History Immunization Up to Date: No - Psycho-Social/Smoking History Smoking Status: No Smoking History: Never smoked Have you smoked in the past 12 months: No Number of Cigarettes Smoked Daily: 0 Cigars Per Day: 0 Information on smoking cessation initiated: No - Substance Abuse Hx (Audit-C & DAST Scrn) How often the patient has a drink containing alcohol: Monthly or less Number of drinks the patient has on a typical day: 1 or 2 Score: In Men: 4 or > Positive; In Women: 3 or > Positive: 1 Screen Result (Pos requires Nsg. Audit-10AR): Negative In the last yr the pt used illegal drug/Rx for NonMed reason: No Score: Yes response is considered Positive: 0 Screen Result (Positive result requires Nsg. DAST-10): Negative *Physical Exam - Vital Signs Last Vital Signs Temp Pulse Resp BP Pulse Ox 98.7 F 95 H 20 114/77 95 05/02/20 02:12 05/02/20 02:12 05/02/20 02:12 05/02/20 02:12 05/02/20 02:12 ED Treatment Course - LABORATORY CBC & Chemistry Diagram: 05/02/20 02:31 05/02/20 02:31 Medical Decision Making - Medical Decision Making 05/02/20 03:29 45yo F hx fibromyalgia, vitamin D deficiency, and multiple ED visits presents from home c/o 4 days of myalgias, generalized fatigue, and intermittent shortness of breath with exertion. Pt has had similar sx multiple times before, no change, sometimes receives steroids or antibiotics but no known dx. Took ibuprofen 2 days ago with improvement. Denies F/C, N/V, D/C, urinary sx, abdominal pain, chest pain, headache, sore throat, ear pain. CXR EKG Labs COVID Flu Tylenol Discharge Discharge - Discharge Information Problems reviewed: Yes Clinical Impression/Diagnosis: Fatigue Condition: Improved Disposition: HOME - Admission No - Follow up/Referral Referrals: Aicha Patricio MD [Primary Care Provider] - - Patient Discharge Instructions Patient Printed Discharge Instructions: [facility]-Coronavirus Instructions, R- [facility] COVID-19 Isolation Protocol Additional Instructions: You have been seen in the Emergency Department for your fatigue and body aches. Your EKG, chest X-ray, and labs show no signs concerning for an emergent condition such as a heart attack or pneumonia. There are many causes of your symptoms but they are most likely due to a viral infection such as a cold or Coronavirus/COVID-19. At this time it's most important to stay hydrated and self-isolate at home. Call your primary care doctor within 1 week for follow-up. Self-isolate for 2 weeks. Return to the ED immediately if you experience chest pain, difficulty breathing, dizziness, or any other new or worsening symptom. - Post Discharge Activity
[2020-05-02] MEDS ORDERED: ACETAMINOPHEN 325 MG TABLET (FP) PO ONE (02:40)
[2020-05-02] MEDS ORDERED: ACETAMINOPHEN 325 MG TABLET (FP) ONE (02:41)
[2020-05-02 02:43] LABS: BASO % 0.6 % (0-2.0); EOS % 2.3 % (0-4.5); HEMATOCRIT 39.2 % (32.4-45.2); HEMOGLOBIN 13.3 GM/dL (10.7-15.3); LYMPH % 21.9 % (8-40); MCH 31.3 pg (25.7-33.7); MCHC 33.8 g/dl (32.0-36.0); MEAN CELL VOLUME 92.5 fl (80-96); MEAN PLT VOLUME 7.5 fl (7.5-11.1); MONO % 9.1 % (3.8-10.2); NEUT % 66.1 % (42.8-82.8); PLATELET COUNT 203 K/MM3 (134-434); RBC 4.24 M/mm3 (3.60-5.2); RDW 14.4 % (11.6-15.6); WHITE BLOOD COUNT 8.6 K/mm3 (4.0-10.0)
[2020-05-02 03:16] LABS: ALBUMIN 3.6 g/dl (3.4-5.0); ALK PHOS 106 U/L (45-117); ANION GAP 5 MMOL/L (8-16); BILIRUBIN,TOTAL 0.6 mg/dL (0.2-1); CALCIUM 8.6 mg/dL (8.5-10.1); CHLORIDE 105 mmol/L (98-107); CO2 27 mmol/L (21-32); CREATININE 0.6 mg/dL (0.55-1.3); GLUCOSE,RANDOM 89 mg/dL (74-106); SGOT/AST 16 U/L (15-37); SGPT/ALT 12 U/L (13-61); SODIUM 137 mmol/L (136-145); TOT PROT 7.7 g/dl (6.4-8.2)
--- NOTE | 2020-05-02 03:29 | PDOC ---
Attending Attestation - Resident Resident Name: Jasmin Knight - ED Attending Attestation I have performed the following: I have examined & evaluated the patient, The case was reviewed & discussed with the resident, I agree w/resident's findings & plan, Exceptions are as noted - HPI HPI: 05/02/20 03:24 45 yo F h/o fibromyalgia p/w body aches and generalized weakness for 4 days. Denies fevers, cough, CP, abdominal pain, urinary complaints or n/v/d. Report some mild SOB on exertion. States she has had this constellation of symptoms ~3 times over the course of the year and on a previous episode thought she had COVID. - Physicial Exam PE: 05/02/20 03:27 General: very well appearing Chest: CTAB, good air entry, no wheezes rales or rhonchi CVS: + s1 s2, RRR - Medical Decision Making 05/02/20 03:28 45 yo F with body aches and generalized weakness/fatigue, unremarkable exam, likely mild viral syndrome, possibly COVID. Much lower suspicion for PNA however will get cxr. Plan: -labs -cxr -reassess, if labs and imaging unremarkable will d/c with return precautions, recommend PMD f/u This clinical encounter is taking place during a federal and state health care emergency attributable to the novel Li Virus pandemic. The [place] of the Department of Health and Human Services has declared, pursuant to the Public Health Service Act 319F-3 (42 U.S.C. 247d-6d), that a covered persons activities related to medical countermeasures against COVID-19 will be immune from liability under Federal and State law. Heart Score/ECG Review - ECG Impressions Comment:: 05/02/20 03:29 sinus, rate 86, normal intervals, no ST elevations or depressions Discharge - Discharge Information Problems reviewed: Yes Clinical Impression/Diagnosis: Fatigue Condition: Improved Disposition: HOME - Follow up/Referral Referrals: Aicha Patricio MD [Primary Care Provider] - - Patient Discharge Instructions Patient Printed Discharge Instructions: [facility]-Coronavirus Instructions, R- [facility] COVID-19 Isolation Protocol Additional Instructions: You have been seen in the Emergency Department for your fatigue and body aches. Your EKG, chest X-ray, and labs show no signs concerning for an emergent condition such as a heart attack or pneumonia. There are many causes of your symptoms but they are most likely due to a viral infection such as a cold or Coronavirus/COVID-19. At this time it's most important to stay hydrated and self-isolate at home. Call your primary care doctor within 1 week for follow-up. Self-isolate for 2 weeks. Return to the ED immediately if you experience chest pain, difficulty breathing, dizziness, or any other new or worsening symptom. - Post Discharge Activity
[2020-05-02 03:55] LABS: EPI CELLS 10 /uL (0-25.1); HYALINE CASTS 0 /uL (0-3.1); URINE APPEARANCE CLEAR; URINE BACTERIA 209 /uL (0-1359); URINE BILIRUBIN NEGATIVE (NEGATIVE); URINE COLOR YELLOW; URINE GLUCOSE (UA) NEGATIVE (NEGATIVE); URINE KETONE NEGATIVE (NEGATIVE); URINE LEUK ESTERASE NEGATIVE (NEGATIVE); URINE NITRITE NEGATIVE (NEGATIVE); URINE PROTEIN NEGATIVE (NEGATIVE); URINE RBC 6 /uL (0-23.9); URINE UROBILINOGEN 0.2 mg/dL (0.2-1.0); URINE WBC 3 /uL (0-25.8)
--- OUTSIDE RECORDS SUMMARY | 2020-05-02 06:46 | XMS ---
:1975 [facility] Providers Name Role Phone Mario Caruso Unavailable [phone] Mario Caruso Unavailable [phone] BO GASCA W Unavailable Unavailable Taco Ferrera Unavailable [phone] WALT Roper Unavailable Unavailable ED STAFF PHYSICIAN Unavailable Unavailable Mendoza SKIN CARE TECHNICIAN, SKIN CARE TECHNICIAN Danilo Unavailable [phone] Mendoza SKIN CARE TECHNICIAN, SKIN CARE TECHNICIAN Danilo Unavailable [phone] ED STAFF PHYSICIAN, STAFF Unavailable Unavailable RON MARTIN RCARMENYLHalieALONZO Unavailable Unava ilable Leticia-Jasmin Lewis Unavailable [phone] Leticia-Enid Lewisbeth Unavailable [phone] ZUNASSIGNED Unavailable Unavailable Treva Lovett Unavailable [phone] Treva Lovett Unavailable [phone] ED STAFF PHYSICIAN Unavailable Unavailable Re-disclosure Warning The records that you are about to access may contain information from federally- assisted alcohol or drug abuse programs. If such information is present, then the following federally mandated warning applies: This information has been disclosed to you from records protected by federal confidentiality rules (42 CFR part 2). The federal rules prohibit you from making any further disclosure of this information unless further disclosure is expressly permitted by the written consent of the person to whom it pertains or as otherwise permitted by 42 CFR part 2. A general authorization for the release of medical or other information is NOT sufficient for this purpose. The Federal rules restrict any use of the information to criminally investigate or prosecute any alcohol or drug abuse patient.The records that you are about to access may contain highly sensitive health information, the redisclosure of which is protected by Article 27-F of the [facility] Public Health law. If you continue you may haveaccess to information: Regarding HIV / AIDS; Provided by facilities licensed or operated by the [facility] Office of Mental Health; or Provided by the [facility] Office for People With Developmental Disabilities. If such information is present, then the following [facility] mandated warning applies: This information has been disclosed to you from confidential records which are protected by state law. State law prohibits you from making any further disclosure of this information without the specific written consent of the person to whom it pertains, or as otherwise permitted by law. Any unauthorized further disclosure in violation of state law may result in a fine or long-term sentence or both. A general authorization for the release of medical or other information is NOT sufficient authorization for further disclosure. Allergies and Adverse Reactions Type Description Substance Reaction Status Data Source(s ) Drug allergy ciprofloxacin Ciprofloxacin Numbness Active NEXTGE N ([facility] ) Encounters Encounter Providers Location Date Indications Data Source(s ) Emergency Attender: BO Pleitez 04/18/2020 [facility] WAttender: 11:19:00 PM [facility] Center STAFF ED STAFF EDT - PHYSICIANAdmitter: 04/19/2020 BO GASCA 01:06:00 AM WReferrer: EDT ZUNASSIGNED Patient discharged. OutpatientOFFICE/OUTPATIENT Attender: Mental 04/17/2020 [facility], [facility] 11:14:[facility] AM ([facility] EDT [facility] 04/17/2020 Medical 11:14:00 AM Center) EDT Individual Psychotherapy (30 Attender: [facility] Mental 04/15/2020 NEXTGEN Min) [facility] 09:42:00 AM ([facility] EDT - [facility] 04/15/2020 Medical 09:42:00 AM Center) EDT Individual Psychotherapy (30 Attender: Taco Mental 03/20/2020 NEXTGEN Min) [facility] 02:34:00 PM ([facility] EDT - [facility] 03/20/2020 Medical 02:34:00 PM Center) EDT OutpatientOFFICE/OUTPATIENT Attender: [facility] 11[facility]05:00 AM ([facility] EDT - [facility] 03/20/2020 Medical 11:05:00 AM Center) EDT Emergency Attender: STAFF H 03/17/2020 [facility] ED STAFF 07:20:00 PM [facility] PHYSICIAN EDT - Medical 03/17/2020 Center 10:17:00 PM EDT Patient discharged. Attender: [facility] 02/24/2020 NEXTG EN ([facility] 02:08:00 PM EDT - [facility] 02/24/2020 Medical 02:08:00 PM EDT Center) Individual Attender: [facility] 02/12/2020 NEXTGE N ([facility] ([facility] 12:28:00 PM EDT - [facility]) 02/12/2020 Medical 12:28:00 PM EDT Center) Individual Attender: [facility] 02/05/2020 NEXTGE N ([facility] (30 [facility] 10:53:00 AM EDT - [facility]) 02/05/2020 Medical 10:53:00 AM EDT Center) OutpatientOFFICE/OUTP Attender: SKIN CARE TECHNICIAN Danilo Mental Health 01/22/2020 NEXTGEN ([facility] VISIT, EST Mendoza SKIN CARE TECHNICIAN Clinic 10:46:00 AM EDT - [facility] 01/22/2020 Medical 10:46:00 AM EDT Center) Emergency Attender: ED STAFF H 01/19/2020 [facility] PHYSICIANAttender: 01:50:00 PM EDT - Medical Center STAFF ED STAFF 01/19/2020 PHYSICIANAdmitter: 04:38:00 PM EDT ED STAFF PHYSICIAN Patient discharged. Emergency Attender: STAFF ED STAFF H 12/29/2019 03:10:00 AM [facility] PHYSICIAN EDT - 12/29/2019 04:00:00 Center AM EDT Patient discharged. Attender: Jasmin Mental 12/25/2019 [facility] 05:21:00 PM [facility] 05:21:00 PM EDT Medical Center) OutpatientOFFICE/OUT Attender: VALERIA Carrasco Mental 12/25/2019 NEXTGEN PATIENT VISIT, EST Mendoza SKIN CARE TECHNICIAN Health 02:07:00 PM EDT ( [facility] 12/25/2019 [facility] 02:07:00 PM EDT Medical Center) Attender: VALERIA Carrasco Mental 12/22/2019 GUNJAN Donaldson SKIN CARE TECHNICIAN Health 04:42:00 PM EDT ([facility] 12/22/2019 [facility] 04:42:00 PM EDT Medical Center) Individual Attender: Taco Hurley Mental 12/21/2019 NEXT GEN Psychotherapy (30 [facility] 10:45:00 AM EDT (S aint Min) [facility] - 12/21/2019 [facility] 10:45:00 AM EDT Medical Center) Attender: VALERIA Carrasco Mental 12/13/2019 [facility] NPAttender[facility] Health 10:32:00 AM EDT ([facility] 12/13/2019 [facility] 10:32:00 AM EDT Medical Center) Attender: Treva Mental 11/15/2019 [facility] 11:44:00 AM EDT ([facility] 11/15/2019 [facility] 11:44:00 AM EDT Medical Center) Attender: Trvea Mental 11/15/2019 [facility] 09:49:00 AM EDT ([facility] 11/15/2019 [facility] 09:49:00 AM EDT Medical Center) Individual Attender: Taco Hurley Mental 11/07/2019 NEXT GEN Psychotherapy (30 [facility] 11:48:00 AM EDT (S aint Min) [facility] - 11/07/2019 [facility] 11:48:00 AM EDT Medical Center) Attender: Treva Mental 10/18/2019 [facility]EXT[facility] 02:07:00 PM EDT ([facility] 10/18/2019 [facility] 02:07:00 PM EDT Medical Center) OutpatientOFFICE/OUT Attender: SKIN CARE TECHNICIAN Danilo Mental 10/18/2019 NEXTGEN PATIENT VISIT, FARZANA Donaldson NPAttender: Health 10:06:00 AM EDT ([facility] 10[facility]18[facility] 10:06:00 AM EDT Medical Center) Attender: Treva Mental 10/18/2019 [facility] 07:14:00 AM EDT ([facility] 10/18/2019 [facility] 07:14:00 AM EDT Medical Center) Individual Attender: Taco Hurley Mental 10/06/2019 NEXT GEN Psychotherapy (30 [facility] 11:52:00 AM EDT (S aint Min) [facility] - 10/06/2019 [facility] 11:52:00 AM EDT Medical [place]) Attender: Treva Mental 09/20/2019 [facility] Health 03:32:00 PM EST ([facility] 09/20/2019 [facility] 03:32:00 PM EST Medical [place]) OutpatientOFFICE/OUT Attender: SKIN CARE TECHNICIAN Danilo Mental 09/20/2019 [facility] Mendoza NPAttender: Health 12:16:00 PM EST ([facility] 09/20/2019 [facility] 12:16:00 PM EST Medical Center) Individual Attender: Taco Hurley Mental 08/25/2019 NEXT [facility] Psychotherapy (30 [facility] 11:26:00 AM EST (S aint Min) [facility] - 08/25/2019 [facility] 11:26:00 AM EST Medical Center) OutpatientOFFICE/OUT Attender: VALERIA Carrasco Mental 08/23/2019 NEXTGEN PATIENT VISIT, EST Mendoza NPAttender: Health 01:08:00 PM EST ([facility] - 08/23/2019 [facility] 01:08:00 PM EST Medical Center) Outpatient Attender: MARIO Pleitez 08/23/2019 [facility] 10:05:00 AM EST Medical RAdmitter: MARIO MORALESYL-ALONZO Barrie Attender: Taco Hurley Mental 08/23/2019 NEXT GEN [facility] 10:05:00 AM EST ([facility] 08/23/2019 [facility] 10:05:00 AM [facility] Medical Center) Emergency Attender: ED STAFF H 08/20/2019 [facility] PHYSICIANAttender: 09:39:00 PM EST M edical STAFF ED STAFF - 08/20/2019 Center PHYSICIANAdmitter: ED 11:31:00 PM EST STAFF PHYSICIAN Patient discharged. Individual Attender: [facility] 07/25/2019 NEXTGE N ([facility] Psychotherapy (30 [facility] 10:23:00 AM EST - [facility] Min) 07/25/2019 Medical 10:23:00 AM [facility] Center) Emergency Attender: ED H 07/14/2019 [place] STAFF 10:56:00 AM EST - [facility] PHYSICIANAttender 07/14/2019 : STAFF ED STAFF 01:53:00 PM EST PHYSICIANAdmitter : ED STAFF PHYSICIAN Patient discharged. Individual Attender: [facility] 06/15/2019 NEXT N ([facility] Psychotherapy (30 [facility] 10:56:00 AM EST - [facility] Min) 06/15/2019 Medical 10:56:00 AM [facility]) OutpatientOFFICE/OUTP Attender: [facility] 06/15/2019 NEXTGEN ([facility] VISIT, [facility] 09:47:00 AM [facility] 06/15/2019 Medical 09:47:00 AM [facility]) Emergency Attender: ED H 05/22/2019 [place] STAFF 04:09:00 AM EDT - [facility] PHYSICIANAdmitter 05/22/2019 : ED STAFF 06:56:00 AM EDT PHYSICIAN Patient discharged. Emergency Attender: WALT Pleitez 05/20/2019 01:39:00 PM [facility] SHELLEY POLANCOdmitter: EDT - 05/20/2019 05:14:00 [place] WALT Roper PM EDT Patient discharged. OutpatientOFFICE/OUTPATIENT Attender: Mental 05/18/2019 NEXTGEN VISIT, [facility] 09:58:00 AM ([facility] EDT [facility] 05/18/2019 Medical 09:58:00 AM [place]) EDT Individual Psychotherapy (30 Attender: [facility] 05/18/2019 [facility] Min) [facility] 09:04:00 AM ([facility] EDT [facility] 05/18/2019 Medical 09:04:00 AM Center) EDT Individual Psychotherapy (30 Attender: [facility] 05/04/2019 NEXTGEN Min) [facility] 09:12:00 AM ([facility] 05/04/2019 Medical 09:12:00 AM Center) EDT Emergency H 04/21/2019 [facility] 10:53:00 AM [facility]2019 [place] 12:48:00 PM EDT Patient discharged. OutpatientOFFICE/OUTPATIENT Attender: [facility]20/[facility], [facility] 10:41:00 AM ([facility] 04/20/2019 Medical 10:41:00 AM Center) EDT Individual Psychotherapy (30 Attender: [facility] 04/12/2019 [facility]) [facility] 11:10:00 AM ([facility] 04/12/2019 Medical 11:10:00 AM Center) EDT OutpatientOFFICE/OUTPATIENT Attender: [facility] 03/23/2019 [facility], [facility] 10:41:00 AM ([facility] 03/23/2019 Medical 10:41:00 AM Center) EDT Medications Medication Brand Start Product Dose Route [facility] Indications Reaction Description Data Name Date Form Instructions Instructions Source(s) Hydroxyzine hydrox 04/17/ active take 1 NEXTGEN Hydrochlori yzine 2019 tablet by (S aint de 25 MG HCl 25 12:00: oral route J osephs Oral Tablet mg 00 AM once daily M edical hydroxyzine tablet EDT at bedtime Center) HCl 25 mg tablet Paroxetine Paxil . ORAL active paroxetin e NEXTGEN 20 MG Oral 20 mg 2020 {tabl hydrochlorid ([facility] Tablet tablet 12:00: et} e 20 MG Oral J osephs [Paxil] 00 AM Tablet Medical Paxil 20 mg EDT [Paxil] Cente r) tablet Trazodone trazod .00 ORAL active take 1 NE XTGEN Hydrochlori one 50 2019 {tabl tablet by ([facility] de 50 MG mg 12:00: et} oral route Enrique ephs Oral Tablet tablet 00 AM every day at Medical trazodone EDT bedtime Center) 50 mg tablet gabapentin gabape ORAL active take 1 N EXTGEN 100 MG Oral ntin 2020 {caps capsule by ( [facility] Capsule 100 mg 12:00: ule} oral route 3 Diaz gabapentin capsul 00 AM times every Medical 100 mg e EDT day Center) capsule Trazodone trazod ORAL complet take 1 N EXTGEN Hydrochlori one 50 2019 {tabl ed tablet by ([facility] de 50 MG mg 12:00: et} oral route Enrique ephs Oral Tablet tablet 00 AM every day at [facility] [place] Center) 50 mg tablet Hydroxyzine hydrox complet take 1 NEXTGEN Hydrochlori yzine 2019 ed tablet by (S aint de 25 MG HCl 25 12:00: oral route J osephs Oral Tablet mg 00 AM once daily M edical hydroxyzine tablet EDT at bedtime Center) HCl 25 mg tablet Paroxetine Paxil ORAL complet paroxeti ne NEXTGEN 20 MG Oral 20 mg 2020 {tabl ed hydrochlorid ([facility] Tablet tablet 12:00: et} e 20 MG Oral J osephs [Paxil] 00 AM Tablet Medical Paxil 20 mg EDT [Paxil] Cente r) tablet gabapentin gabape ORAL complet take 1 NEXTGEN 100 MG Oral ntin 2019 {caps ed capsule by ( [facility] Capsule 100 mg 12:00: ule} oral route 3 Diaz gabapentin capsul 00 AM times every Medical 100 mg e EDT day Center) capsule Paroxetine Paxil ORAL complet paroxeti ne NEXTGEN 20 MG Oral 20 mg 2020 {tabl ed hydrochlorid ([facility] Tablet tablet 12:00: et} e 20 MG Oral J osephs [Paxil] 00 AM Tablet Medical Paxil 20 mg EDT [Paxil] Cente r) tablet Trazodone trazod . ORAL complet take 1 N EXTGEN Hydrochlori one 50 2019 {tabl ed tablet by ([facility] de 50 MG mg 12:00: et} oral route Enrique ephs Oral Tablet tablet 00 AM every day at [facility] [place] Center) 50 mg tablet Hydroxyzine hydrox complet take 1 NEXTGEN Hydrochlori yzine 2020 ed tablet by (S aint de 25 MG HCl 25 12:00: oral route J osephs Oral Tablet mg 00 AM once daily M edical hydroxyzine tablet EDT at bedtime Center) HCl 25 mg tablet gabapentin gabape ORAL complet take 1 NEXTGEN 100 MG Oral ntin 2019 {caps ed capsule by ( [facility] Capsule 100 mg 12:00: ule} oral route 3 Diaz gabapentin capsul 00 AM times every Medical 100 mg e EDT day Center) capsule Trazodone trazod . ORAL complet take 1 N EXTGEN Hydrochlori one 50 2019 {tbl} ed tablet by ([facility] de 50 MG mg 12:00: oral route Enrique ephs Oral Tablet tablet 00 AM every day at [facility] [place]) 50 mg tablet Hydroxyzine hydrox complet take 1 NEXTGEN Hydrochlori yzine 2019 ed tablet by (S aint de 25 MG HCl 25 12:00: oral route J osephs Oral Tablet mg 00 AM once daily M edical hydroxyzine tablet EDT at bedtime [place]) HCl 25 mg tablet gabapentin gabape ORAL complet take 1 NEXTGEN 100 MG Oral ntin 2019 {caps ed capsule by ( [facility] Capsule 100 mg 12:00: ule} oral route 3 Diaz gabapentin capsul 00 AM times every Medical 100 mg e EDT day Center) capsule Paroxetine Paxil . ORAL complet Paroxeti ne NEXTGEN 20 MG Oral 20 mg 2019 {tbl} ed Hydrochlorid ([facility] Tablet tablet 12:00: e 20 MG Oral J osephs [Paxil] 00 AM Tablet Medical Paxil 20 mg EDT [Paxil] Cente r) tablet Hydroxyzine hydrox complet take 1 NEXTGEN Hydrochlori yzine 2019 ed tablet by (S aint de 25 MG HCl 25 12:00: oral route J osephs Oral Tablet mg 00 AM once daily M edical hydroxyzine tablet EDT at bedtime Center) HCl 25 mg tablet Trazodone trazod . ORAL complet take 1 N EXTGEN Hydrochlori one 50 2019 {tbl} ed tablet by ([facility] de 50 MG mg 12:00: oral route Enrique ephs Oral Tablet tablet 00 AM every day at [facility] bed[place]) 50 mg tablet Medication administered onsite Hydroxyzine hydroxyzine 12/25/2019 completed take 1 NEXTGEN Hydrochloride 25 HCl 25 mg 12:00:00 AM tablet by ([facility] MG Oral Tablet tablet EDT oral Enrique ephs hydroxyzine HCl route Med ical 25 mg tablet once Center) daily at bedtime Medication administered onsite gabapentin 100 gabapentin 12/25/2019 1 ORAL completed take 1 NEXTGEN MG Oral 100 mg 12:00:00 AM {capsule} cap corbin by ([facility] Capsule capsule EDT oral route Enrique ephs gabapentin 100 3 times Me dical mg capsule every day Cent er) Trazodone trazodone 12/25/2019 1.00 {tbl} ORAL completed take 1 NEXTGEN Hydrochloride 50 mg 12:00:00 AM tab let by ([facility] 50 MG Oral tablet EDT oral route J osephs Tablet every day Medical trazodone 50 at bedtime C enter) mg tablet Paroxetine 20 Paxil 20 mg 12/25/2019 1.00 {tbl} ORAL complet ed Paroxetine NEXTGEN MG Oral Tablet tablet 12:00:00 AM H ydrochlori (Saint [Paxil] Paxil EDT de 20 MG Dione sephs 20 mg tablet Oral Tablet Medical [Paxil] [place]) Paroxetine 20 Paxil 20 mg 12/25/2019 1.00 {tbl} ORAL complet ed Paroxetine NEXTGEN MG Oral Tablet tablet 12:00:00 AM H ydrochlori ([facility] [Paxil] Paxil EDT de 20 MG Dione sephs 20 mg tablet Oral Tablet Medical [Paxil] [place]) Medication administered onsite gabapentin gabapentin 12/25/2019 1 {capsule} ORAL completed take 1 NEXTGEN 100 MG Oral 100 mg 12:00:00 AM caps ule ([facility] Capsule capsule EDT by oral [facility] gabapentin route 3 Medica l 100 mg times Center) capsule every day Medication administered onsite gabapentin 100 gabapentin 11/15/2019 1 ORAL completed take 1 NEXTGEN MG Oral 100 mg 12:00:00 AM {capsule} cap corbin by ([facility] Capsule capsule EDT oral route Enrique ephs gabapentin 100 3 times Me dical mg capsule every day Cent er) Trazodone trazodone 50 11/15/2019 1.00 {tbl} ORAL completed take 1 NEXTGEN Hydrochloride mg tablet 12:00:00 AM tablet by ([facility] 50 MG Oral EDT oral route Enrique ephs Tablet every day Medical trazodone 50 at bedtime C enter) mg tablet gabapentin 100 gabapentin 10/18/2019 1 ORAL completed take 1 NEXTGEN MG Oral 100 mg 12:00:00 AM {capsule} cap corbin by ([facility] Capsule capsule EDT oral route Enrique ephs gabapentin 100 3 times Me dical mg capsule every day Cent er) Hydroxyzine hydroxyzine 10/18/2019 completed take 1 NEXTGEN Hydrochloride HCl 25 mg 12:00:00 AM tablet by ([facility] 25 MG Oral tablet EDT oral route J osephs Tablet once Medical hydroxyzine daily at Cent er) HCl 25 mg bedtime tablet Paroxetine 20 Paxil 20 mg 10/18/2019 1.00 {tbl} ORAL complet ed Paroxetine NEXTGEN MG Oral Tablet tablet 12:00:00 AM H ydrochlor (Saint [Paxil] Paxil EDT lore[place] 20 MG J osephs 20 mg tablet Oral Medical Tablet [place]) [Paxil] Trazodone trazodone 50 10/18/2019 1.00 {tbl} ORAL completed take 1 NEXTGEN Hydrochloride mg tablet 12:00:00 AM tablet by ([facility] 50 MG Oral EDT oral route Enrique ephs Tablet every day Medical trazodone 50 at bedtime C enter) mg tablet Trazodone trazodone 50 09/20/2019 1.00 {tbl} ORAL completed take 1 NEXTGEN Hydrochloride mg tablet 12:00:00 AM tablet by ([facility] 50 MG Oral EST oral route Enrique ephs Tablet every day Medical trazodone 50 at bedtime C enter) mg tablet Paroxetine 20 Paxil 20 mg 09/20/2019 1.00 {tbl} ORAL complet ed Paroxetine NEXTGEN MG Oral Tablet tablet 12:00:00 AM H ydrochlor ([facility] [Paxil] Paxil EST lorena 20 MG J osephs 20 mg tablet Oral Medical Tablet [place]) [Paxil] gabapentin 100 gabapentin 09/20/2019 1 ORAL completed take 1 NEXTGEN MG Oral 100 mg 12:00:00 AM {capsule} cap corbin by ([facility] Capsule capsule EST oral route Enrique ephs gabapentin 100 3 times Me dical mg capsule every day Cent er) Hydroxyzine hydroxyzine 09/20/2019 completed take 1 NEXTGEN Hydrochloride HCl 25 mg 12:00:00 AM tablet by ([facility] 25 MG Oral tablet EST oral route J osephs Tablet once Medical hydroxyzine daily at Cent er) HCl 25 mg bedtime tablet Paroxetine 20 Paxil 20 mg 06/15/2019 1.00 {tbl} ORAL complet ed Paroxetine NEXTGEN MG Oral Tablet tablet 12:00:00 AM H ydrochlor ([facility] [Paxil] Paxil EST lorena 20 MG J osephs 20 mg tablet Oral Medical Tablet [place]) [Paxil] Trazodone trazodone 50 06/15/2019 1.00 {tbl} ORAL completed take 1 NEXTGEN Hydrochloride mg tablet 12:00:00 AM tablet by ([facility] 50 MG Oral EST oral route Enrique ephs Tablet every day Medical trazodone 50 at bedtime C enter) mg tablet Hydroxyzine hydroxyzine 06/15/2019 completed take 1 NEXTGEN Hydrochloride HCl 25 mg 12:00:00 AM tablet by ([facility] 25 MG Oral tablet EST oral route J osephs Tablet once Medical hydroxyzine daily at Cent er) HCl 25 mg bedtime tablet Hydroxyzine hydroxyzine 05/18/2019 completed take 1 NEXTGEN Hydrochloride HCl 25 mg 12:00:00 AM tablet by ([facility] 25 MG Oral tablet EDT oral route J osephs Tablet once Medical hydroxyzine daily at [facility] er) HCl 25 mg bedtime tablet Trazodone trazodone 50 05/18/2019 1.00 {tbl} ORAL completed take 1 NEXTGEN Hydrochloride mg tablet 12:00:00 AM tablet by ([facility] 50 MG Oral EDT oral route Enrique ephs Tablet every day Medical trazodone 50 at bedtime C enter) mg tablet Paroxetine 20 Paxil 20 mg 05/18/2019 1.00 {tbl} ORAL complet ed Paroxetine NEXTGEN MG Oral Tablet tablet 12:00:00 AM H ydrochlor ([facility] [Paxil] Paxil EDT lorena 20 MG J osephs 20 mg tablet Oral Medical Tablet [place]) [Paxil] Paroxetine 20 Paxil 20 mg 04/20/2019 1.00 {tbl} ORAL complet ed Paroxetine NEXTGEN MG Oral Tablet tablet 12:00:00 AM H ydrochlor ([facility] [Paxil] Paxil EDT lorena 20 MG J osephs 20 mg tablet Oral Medical Tablet [place]) [Paxil] Trazodone trazodone 50 04/20/2019 1.00 {tbl} ORAL completed take 1 NEXTGEN Hydrochloride mg tablet 12:00:00 AM tablet by ([facility] 50 MG Oral EDT oral route Enrique ephs Tablet every day Medical trazodone 50 at bedtime C enter) mg tablet Hydroxyzine hydroxyzine 04/20/2019 completed take 1 NEXTGEN Hydrochloride HCl 25 mg 12:00:00 AM tablet by ([facility] 25 MG Oral tablet EDT oral route J osephs Tablet once Medical hydroxyzine daily at Cent er) HCl 25 mg bedtime tablet Hydroxyzine hydroxyzine 03/23/2019 completed take 1 NEXTGEN Hydrochloride HCl 25 mg 12:00:00 AM tablet by ([facility] 25 MG Oral tablet EDT oral route J osephs Tablet once Medical hydroxyzine daily at Cent er) HCl 25 mg bedtime tablet Paroxetine 20 Paxil 20 mg 03/23/2019 1.00 {tbl} ORAL complet ed Paroxetine NEXTGEN MG Oral Tablet tablet 12:00:00 AM H ydrochlor ([facility] [Paxil] Paxil EDT lorena 20 MG J osephs 20 mg tablet Oral Medical Tablet [place]) [Paxil] Trazodone trazodone 50 03/23/2019 1.00 {tbl} ORAL completed take 1 NEXTGEN Hydrochloride mg tablet 12:00:00 AM tablet by ([facility] 50 MG Oral EDT oral route Enrique ephs Tablet every day Medical trazodone 50 at bedtime C enter) mg tablet Paroxetine 20 Paxil 20 mg 02/23/2019 1.00 {tbl} ORAL complet ed Paroxetine NEXTGEN MG Oral Tablet tablet 12:00:00 AM H ydrochlor ([facility] [Paxil] Paxil EDT lorena 20 MG J osephs 20 mg tablet Oral Medical Tablet [place]) [Paxil] Trazodone trazodone 50 02/23/2019 1.00 {tbl} ORAL completed take 1 NEXTGEN Hydrochloride mg tablet 12:00:00 AM tablet by ([facility] 50 MG Oral EDT oral route Enrique ephs Tablet every day Medical trazodone 50 at bedtime C enter) mg tablet Hydroxyzine hydroxyzine 02/23/2019 completed take 1 NEXTGEN Hydrochloride HCl 25 mg 12:00:00 AM tablet by ([facility] 25 MG Oral tablet EDT oral route J osephs Tablet once Medical hydroxyzine daily at Cent er) HCl 25 mg bedtime tablet Insurance Providers Payer name Policy type Policy ID Covered Covered alliance party's Policy P geno / Coverage alliance party ID relationship to Ariza Inf ormation type ariza HIP PLASTIC MIXER [id number] SP [id number] 01 HIP MEDICAID HMO O [id number] OP HIP MEDICAID HMO O [id number] 01 AA [id number] OP 01 MEDICAID HMO W [id number] 01 [id number] W [place] O [id number] 01 [id number] 01 PLASTIC MIXER-HIP 01 VALUE OPTION O [id number] 01 [id number] W [id number] 01 [id number] O W [id number] 01 [id number] 1 01 VALUE OPTIONS O [id number] 01 [place] PLASTIC MIXER O [id number] 01 HIP MEDICAID HMO O [id number] 01 [id number] OP EMBLEMHEALTH 01 EMBLEMHEATH O [id number] 01 [id number] 01 1 Problems, Conditions, and Diagnoses Code Display Name Description Problem Type Effective Data Sour ce(s) Dates R05 Cough COUGH Diagnosis 04/18/2020 [facility] 11:19:00 PM Medical [facility]T M54.9 Dorsalgia, DORSALGIA, Diagnosis 03/17/2020 [facility] Diaz unspecified UNSPECIFIED 07:20:00 [address] Medical [facility] ter EDT M25.50 Pain in PAIN IN Diagnosis 03/17/2020 [facility] Diaz unspecified joint UNSPECIFIED JOINT 07:20:00 PM Medical Center EDT R60.0 Localized edema LOCALIZED EDEMA Diagnosis 03/17/2020 Angela Perales 07:20:00 PM Medical [facility] EDT M25.579 Pain in PAIN IN Diagnosis 03/17/2020 [facility] Diaz unspecified ankle UNSPECIFIED ANKLE 07:20:00 PM Medical Center and joints of AND JOINTS OF EDT unspecified foot UNSPECIFIED FOOT N39.0 Urinary tract URINARY TRACT Diagnosis 01/19/2020 [facility] Parham elroys infection, site INFECTION, SITE 01:50:00 PM Med ical Center not specified NOT SPECIFIED EDT M62.838 Other muscle spasm OTHER MUSCLE Diagnosis 01/19/2020 Angela t Diaz SPASM 01:50:00 PM Medical Cente r EDT H66.90 Otitis media, OTITIS MEDIA, Diagnosis 01/19/2020 [facility] Dione rosenberg unspecified, UNSPECIFIED, 01:50:00 PM Medical C enter unspecified ear UNSPECIFIED EAR EDT M54.2 Cervicalgia CERVICALGIA Diagnosis 01/19/2020 [facility] Figueroa s 01:50:00 PM Medical Cente r EDT M54.5 Low back pain LOW BACK PAIN Diagnosis 12/29/2019 [facility] Dione abbasis 03:10:00 AM Medical Cente r EDT R52 Pain, unspecified PAIN, UNSPECIFIED Diagnosis 12/29/2019 [facility] Figueroas 03:10:00 AM Medical Cente r EDT F33.1 Major depressive MAJOR DEPRESSIVE Diagnosis 08/23/2019 Sa chanel Figueroas disorder, DISORDER, 10:05:00 AM Medical Cente r recurrent, RECURRENT, EST moderate MODERATE Y99.9 Unspecified UNSPECIFIED Diagnosis 08/20/2019 [facility] Henry grider external cause EXTERNAL CAUSE 09:39:00 PM Medic al Center status STATUS EST Y92.89 Other specified OTH PLACES THE Diagnosis 08/20/2019 Sa chanel Figueroas places as the PLACE OF 09:39:[address] nter place of OCCURRENCE OF THE EST occurrence of the EXTERNAL CAUSE external cause Y93.89 Activity, other ACTIVITY, OTHER Diagnosis 08/20/2019 Angela Perales specified SPECIFIED 09:39:00 PM Medical Cente r EST X50.0XXA Overexertion from OVEREXERTION FROM Diagnosis 08/20/2019 [facility] Perales strenuous movement STRENUOUS 09:39:00 PM Medic al Center or load, initial MOVEMENT OR LOAD, EST encounter INIT S16.1XXA Strain of muscle, STRAIN OF MUSCLE, Diagnosis 08/20/2019 [facility] Perales fascia and tendon FASCIA AND TENDON 09:39:00 PM Medical Center at neck level, AT NECK LEVEL, EST initial encounter INIT R07.9 Chest pain, CHEST PAIN, Diagnosis 07/14/2019 [facility] Figueroa s unspecified UNSPECIFIED 10:56:[address] EST R51 Headache HEADACHE Diagnosis 05/22/2019 [facility] Perales 04:09:00 AM Medical Cente r EDT M79.7 Fibromyalgia FIBROMYALGIA Diagnosis 05/20/2019 [facility] Abdi phs 01:39:00 PM Medical Cente r EDT M54.41 Lumbago with LUMBAGO WITH Diagnosis 05/20/2019 [facility] Abdi phs sciatica, right SCIATICA, RIGHT 01:39:00 PM [facility] side SIDE EDT Surgeries/Procedures Procedure Description Date Indications Data Source(s) Psychotherapy (30 Mins) 04/17/2020 NEXT GEN ([facility] W/ E&M 12:00:00 AM EDT [facility] - 04/17/2020 [place]) 12:00:00 AM EDT OFFICE/OUTPATIENT VISIT, 04/17/2020 NEX TGEN (Saint EST 12:00:00 AM EDT [facility] 04/17/2020 [place]) 12:00:00 AM EDT Individual Psychotherapy 04/15/2020 NEX TGEN ([facility] (30 Min) 12:00:00 AM EDT [facility] 04/15/2020 [place]) 12:00:00 AM EDT Psychotherapy (30 Mins) 03/20/2020 NEXT GEN ([facility] W/ E&M 12:00:00 AM EDT [facility] 03/20/2020 [place]) 12:00:00 AM EDT OFFICE/OUTPATIENT VISIT, 03/20/2020 NEX TGEN ([facility] EST 12:00:00 AM EDT [facility] 03/20/2020 [place]) 12:00:00 AM EDT Individual Psychotherapy 03/20/2020 NEX TGEN ([facility] (30 Min) 12:00:00 AM EDT [facility] 03/20/2020 [place]) 12:00:00 AM EDT Individual Psychotherapy 02/12/2020 NEX TGEN (Saint (45 Min) 12:00:00 AM EDT [facility] 02/12/2020 [place]) 12:00:00 AM EDT Individual Psychotherapy 02/05/2020 NEX TGEN (Saint (30 Min) 12:00:00 AM EDT [facility] 02/05/2020 [place]) 12:00:00 AM EDT Psychotherapy (30 Mins) 01/22/2020 NEXT GEN ([facility] W/ E&M 12:00:00 AM EDT [facility] - 01/22/2020 [place]) 12:00:00 AM EDT OFFICE/OUTPATIENT VISIT, 01/22/2020 NEX TGEN (Saint EST 12:00:00 AM EDT [facility] 01/22/2020 [place]) 12:00:00 AM EDT Psychotherapy (30 Mins) 12/25/2019 NEXT GEN ([facility] W/ E&M 12:00:00 AM EDT [facility] - 12/25/2019 [place]) 12:00:00 AM EDT OFFICE/OUTPATIENT VISIT, 12/25/2019 NEX TGEN (Saint EST 12:00:00 AM EDT [facility] - 12/25/2019 [place]) 12:00:00 AM EDT Individual Psychotherapy 12/21/2019 NEX TGEN (Saint (30 Min) 12:00:00 AM EDT [facility] 12/21/2019 [place]) 12:00:00 AM EDT Individual Psychotherapy 11/07/2019 NEX TGEN ([facility] (30 Min) 12:00:00 AM EDT [facility] - 11/07/2019 [place]) 12:00:00 AM EDT Psychotherapy (30 Mins) 10/18/2019 NEXT GEN ([facility] W/ E&M 12:00:00 AM EDT [facility] 10/18/2019 [place]) 12:00:00 AM EDT OFFICE/OUTPATIENT VISIT, 10/18/2019 NEX TGEN ([facility] EST 12:00:00 AM EDT [facility] 10/18/2019 [place]) 12:00:00 AM EDT Individual Psychotherapy 10/06/2019 NEX TGEN (Saint (30 Min) 12:00:00 AM EDT [facility] 10/06/2019 [place]) 12:00:00 AM EDT Psychotherapy (30 Mins) 09/20/2019 NEXT GEN ([facility] W/ E&M 12:00:00 AM EST [facility] 09/20/2019 [place]) 12:00:00 AM EST OFFICE/OUTPATIENT VISIT, 09/20/2019 NEX TGEN ([facility] EST 12:00:00 AM EST [facility] 09/20/2019 [place]) 12:00:00 AM EST Individual Psychotherapy 08/25/2019 NEX TGEN ([facility] (30 Min) 12:00:00 AM EST [facility] 08/25/2019 [place]) 12:00:00 AM EST Psychotherapy (30 Mins) 08/23/2019 NEXT GEN ([facility] W/ E&M 12:00:00 AM EST [facility] 08/23/2019 [place]) 12:00:00 AM EST OFFICE/OUTPATIENT VISIT, 08/23/2019 NEX TGEN ([facility] EST 12:00:00 AM EST [facility] 08/23/2019 [place]) 12:00:00 AM EST Individual Psychotherapy 07/25/2019 NEX TGEN ([facility] (30 Min) 12:00:00 AM EST [facility] 07/25/2019 [place]) 12:00:00 AM EST OFFICE/OUTPATIENT VISIT, 06/15/2019 NEX TGEN ([facility] EST 12:00:00 AM EST [facility] 06/15/2019 [place]) 12:00:00 AM EST Individual Psychotherapy 06/15/2019 NEX TGEN ([facility] (30 Min) 12:00:00 AM EST [facility] 06/15/2019 [place]) 12:00:00 AM EST Individual Psychotherapy 05/18/2019 NEX TGEN ([facility] (30 Min) 12:00:00 AM EDT [facility] 05/18/2019 [place]) 12:00:00 AM EDT OFFICE/OUTPATIENT VISIT, 05/18/2019 NEX TGEN ([facility] EST 12:00:00 AM EDT [facility] 05/18/2019 [place]) 12:00:00 AM EDT Individual Psychotherapy 05/04/2019 NEX TGEN ([facility] (30 Min) 12:00:00 AM EDT [facility] 05/04/2019 [place]) 12:00:00 AM EDT OFFICE/OUTPATIENT VISIT, 04/20/2019 NEX TGEN ([facility] EST 12:00:00 AM EDT [facility] 04/20/2019 [place]) 12:00:00 AM EDT Individual Psychotherapy 04/12/2019 NEX TGEN ([facility] (30 Min) 12:00:00 AM EDT [facility] 04/12/2019 [place]) 12:00:00 AM EDT OFFICE/OUTPATIENT VISIT, 03/23/2019 NEX TGEN ([facility] EST 12:00:00 AM EDT [facility] 03/23/2019 [place]) 12:00:00 AM EDT Results ID Date Data Source Urinalysis.[id number] 03/17/2020 08:20:00 PM EDT [facility] 0 Name Value Range Interpretation Description Data Sup porting Code Source(s) Document(s ) UNK CLEAR <content Saint styleCode="Aiyana Perales d">Urine Medical Clarity Center </content>ISRAEL R <content styleCode="Margaret lics"> (CLEAR )</content> Glucose NEGATIVE <content [facility] [Mass/volume] styleCode="Aiyana Perales in Urine by d">Urine Medical Test strip Glucose Center </content>NEGA TIVE MG/DL<content styleCode="Margaret lics"> (NEGATIVE MG/DL)</conten t> Color of Urine YELLOW <content Saint styleCode="Aiyana Figueroas d">Color, Medical Urine Center </content>YELL OW <content styleCode="Margaret lics"> (YELLOW )</content> Hemoglobin NEGATIVE <content Saint [Presence] in styleCode="Aiyana Figueroas Urine by Test d">Urine Blood Medical strip </content>LARG Center E <content styleCode="Margaret lics"> (NEGATIVE )</content> UNK NEGATIVE <content [facility] styleCode="Aiyana Diaz d">Urine Medical Bilirubin Center </content>NEGA TIVE <content styleCode="Margaret lics"> (NEGATIVE )</content> Ketones NEGATIVE <content [facility] [Mass/volume] styleCode="Aiyana Figueroas in Urine by d">Urine Medical Test strip Ketone Center </content>NEGA TIVE MG/DL<content styleCode="Margaret lics"> (NEGATIVE MG/DL)</conten t> Specific 1.015-1.02 Above high <content Saint gravity of 5 normal styleCode="Aiyana Perales Urine by Test d">Urine Medical strip Specific Center [place] </content>>= 1.030 H<content styleCode="Margaret lics"> (1.015-1.025 )</content> Urobilinogen 0.2-1.0 <content [facility] [Units/volume] styleCode="Aiyana Figueroas in Urine by d">Urine Medical Test strip Urobilinogen Center </content>0.2 MG/DL<content styleCode="Margaret lics"> (0.2-1.0 MG/DL)</conten t> Nitrite NEGATIVE <content [facility] [Presence] in styleCode="Aiyana Figueroas Urine by Test d">Urine Medical strip Nitrite Center </content>NEGA TIVE <content styleCode="Margaret lics"> (NEGATIVE )</content> Protein NEGATIVE <content [facility] [Mass/volume] styleCode="Aiyana Perales in Urine by d">Urine Medical Test strip Protein Center </content>TRAC E MG/DL<content styleCode="Margaret lics"> (NEGATIVE MG/DL)</conten t> pH of Urine by 4.5-8.0 <content [facility] Test strip styleCode="Aiyana Diaz d">Urine pH Medical </content>5.0 Center <content styleCode="Margaret lics"> (4.5-8.0 )</content> UNK 0-3 <content [facility] styleCode="Aiyana Diaz d">Urine Red Medical Blood Cell Center </content>100- 200 HPF<content styleCode="Margaret lics"> (0-3 HPF)</content> Leukocyte NEGATIVE <content [facility] esterase styleCode="Aiyana Perales [Presence] in d">Urine Medical Urine by Test Leukocyte Center strip </content>NEGA TIVE <content styleCode="Margaret lics"> (NEGATIVE )</content> UNK 0-3 <content [facility] styleCode="Aiyana Diaz d">Urine White Medical Blood Cell Center </content>0-3 HPF<content styleCode="Margaret lics"> (0-3 HPF)</content> UNK NONE SEEN <content [facility] styleCode="Aiyana Diaz d">Urine Mucus Medical </content>MODE Center RATE HPF<content styleCode="Margaret lics"> (NONE SEEN HPF)</content> UNK NONE SEEN <content [facility] styleCode="Aiyana Diaz d">Epithelial Medical Cell Center </content>2-5 HPF<content styleCode="Margaret lics"> (NONE SEEN HPF)</content> UNK NEGATIVE <content [facility] styleCode="Aiyana Diaz d">Urine Medical Bacteria Center </content>FEW HPF<content styleCode="Margaret lics"> (NEGATIVE HPF)</content> ID Date Data Source HematologySpeci.[id number] 03/17/2020 08:20:00 PM EDT [facility] 0-0400 Name Value Range Interpretation Description Data Sup porting Code Source(s) Document(s ) C reactive < 3.0 <content [facility] protein styleCode="Bold" Diaz [Mass/volume] in >C-Reactive Medical Serum or Plasma Protein Center </content>2.66 MG/L<content styleCode="Itali cs"> (< 3.0 MG/L)</content> Erythrocyte 0-20 <content Saint sedimentation styleCode="Bold" Diaz rate by >[facility]rythrocyte [facility] method Rate (ESR) </content>20 MM/hr<content styleCode="Itali cs"> (0-20 MM/hr)</content> ID Date Data Source HematologyRou.[id number] 03/17/2020 08:20:00 [facility] Name Value Range Interpretation Description Data Sup porting Code Source(s) Document(s ) Leukocytes 4.4-11.0 <content [facility] [#/volume] in styleCode="Bold Diaz Blood by ">White Blood Medical Automated count Cell Count Center </content>7.35 KCUMM<content styleCode="Ital ics"> (4.4-11.0 KCUMM)</content > Hemoglobin 12.3-16. <content [facility] [Mass/volume] in 0 styleCode="Bold Idaz Blood ">Hemoglobin Medical </content>13.0 Center G/DL<content styleCode="Ital ics"> (12.3-16.0 G/DL)</content> Erythrocytes 4.0-5.1 <content [facility] [#/volume] in styleCode="Bold Diaz Blood by ">Red Blood Medical Automated count Cell Count Center </content>4.24 MCUMM<content styleCode="Ital ics"> (4.0-5.1 MCUMM)</content > Hematocrit 36.0-46. <content Saint [Volume 0 styleCode="Bold Diaz Fraction] of ">Hematocrit Medical Blood by </content>39.8 Center Automated count %<content styleCode="Ital ics"> (36.0-46.0 %)</content> Erythrocyte mean 80.0-100 <content [facility] corpuscular .0 styleCode="Bold Diaz volume [Entitic ">Mean Medical volume] by Corpuscular Center Automated count Volume </content>93.9 FL<content styleCode="Ital ics"> (80.0-100.0 FL)</content> Erythrocyte mean 32.0-37. <content [facility] corpuscular 0 styleCode="Bold Diaz hemoglobin ">Mean Corpus. Medical concentration Hgb Center [Mass/volume] by Concentration Automated count (MCHC) </content>32.7 G/DL<content styleCode="Ital ics"> (32.0-37.0 G/DL)</content> Erythrocyte mean 26.0-34. <content [facility] corpuscular 0 styleCode="Bold Diaz hemoglobin ">Mean Medical [Entitic mass] Corposcular Center by Automated Hemoglobin count </content>30.7 PG<content styleCode="Ital ics"> (26.0-34.0 PG)</content> Erythrocyte 11.5-14. <content [facility] distribution 5 styleCode="Bold Diaz width [Ratio] by ">Red Cell Medical Automated count Distribution Center Width </content>13.7 %<content styleCode="Ital ics"> (11.5-14.5 %)</content> Platelet mean 8.0-11.0 <content [facility] volume [Entitic styleCode="Bold Diaz volume] in Blood ">Mean Platelet Medical by Automated Volume Center count </content>9.3 FL<content styleCode="Ital ics"> (8.0-11.0 FL)</content> Platelets 130-400 <content Saint [#/volume] in styleCode="Bold Diaz Blood by ">Platelet Medical Automated count Count Center </content>231 KCUMM<content styleCode="Ital ics"> (130-400 KCUMM)</content > Neutrophils 36-66 <content [facility] [#/volume] in styleCode="Bold Diaz Blood by ">Neutrophil Medical Automated count </content>59.8 Center %<content styleCode="Ital ics"> (36-66 %)</content> Lymphocytes 24.0-44. <content Saint [#/volume] in 0 styleCode="Bold Diaz Blood by ">Lymphocyte Medical Automated count </content>25.9 Center %<content styleCode="Ital ics"> (24.0-44.0 %)</content> UNK 1.6-7.3 <content Saint styleCode="Bold Diaz ">Neutrophil Medical Count Center </content>4.40 KCUMM<content styleCode="Ital ics"> (1.6-7.3 KCUMM)</content > UNK 1.0-4.8 <content [facility] styleCode="Bold Diaz ">Lymphocyte Medical Count Center </content>1.90 KCUMM<content styleCode="Ital ics"> (1.0-4.8 KCUMM)</content > Eosinophils 0-5.0 <content Saint [#/volume] in styleCode="Bold Diaz Blood by ">Eosinophil Medical Automated count </content>3.3 Center %<content styleCode="Ital ics"> (0-5.0 %)</content> UNK 0.2-0.9 <content [facility] styleCode="Bold Diaz ">Monocyte Medical Count Center </content>0.74 KCUMM<content styleCode="Ital ics"> (0.2-0.9 KCUMM)</content > UNK 0.0-0.6 <content [facility] styleCode="Bold Diaz ">Eosinophil Medical Count Center </content>0.24 KCUMM<content styleCode="Ital ics"> (0.0-0.6 KCUMM)</content > Monocytes 3.0-10.0 Above high <content Saint [#/volume] in normal styleCode="Bold Diaz Blood by ">Monocyte Medical Automated count </content>10.1 Center % H<content styleCode="Ital ics"> (3.0-10.0 %)</content> UNK 0.0 <content Saint styleCode="Bold Diaz ">Nucleated Red Medical Blood Cell Center Count </content>0.00 KCUMM<content styleCode="Ital ics"> (0.0 KCUMM)</content > UNK 0.0-0.3 <content Saint styleCode="Bold Diaz ">Basophil Medical Count Center </content>0.04 KCUMM<content styleCode="Ital ics"> (0.0-0.3 KCUMM)</content > UNK 0 <content Saint styleCode="Bold Diaz ">Nucleated Red Medical Blood Cell Center </content>0.0 /100<content styleCode="Ital ics"> (0 /100)</content> Basophils 0.0-1.0 <content Saint [#/volume] in styleCode="Bold Diaz Blood by ">Basophil Medical Automated count </content>0.5 Center %<content styleCode="Ital ics"> (0.0-1.0 %)</content> UNK < 1 <content Saint styleCode="Bold Diaz ">Immature Medical Granulocyte Center Ratio </content>0.4 %<content styleCode="Ital ics"> (< 1 %)</content> UNK 0-0.1 <content Saint styleCode="Bold Diaz ">Immature Medical Granulocyte Center Count </content>0.03 KCUMM<content styleCode="Ital ics"> (0-0.1 KCUMM)</content > ID Date Data Source GFR(Creatinine).[id number] 03/17/2020 08:20:[address] [facility] 0-0400 Name Value Range Interpretation Code Description Data Velia rce(s) Supporting Document(s ) UNK > 60 <content [facility] styleCode="Bold"> Medical Cent er EGFR </content>72 GFR<content styleCode="Italic s"> (> 60 GFR)</content> ID Date Data Source [id number] 03/17/2020 08:20:00 PM EDT [facility] Name Value Range Interpretation Description Data Sup porting Code Source(s) Document(s ) Chloride 98-107 <content Saint [Moles/volume] styleCode="Aiyana Diaz in Serum or d">Chloride Medical Plasma </content>105 Center MEQ/L<content styleCode="Margaret lics"> (98-107 MEQ/L)</conten t> Sodium 137-145 <content Saint [Moles/volume] styleCode="Aiyana Figueroas in Serum or d">Sodium Medical Plasma </content>137 Center MEQ/L<content styleCode="Margaret lics"> (137-145 MEQ/L)</conten t> Carbon 22-30 <content Saint dioxide, total styleCode="Aiyana Figueroas [Moles/volume] d">Carbon Medical in Serum or Dioxide Center Plasma </content>23 MEQ/L<content styleCode="Margaret lics"> (22-30 MEQ/L)</conten t> Potassium 3.5-5.3 <content [facility] [Moles/volume] styleCode="Aiyana Diaz in Serum or d">Potassium Medical Plasma </content>3.9 Center MEQ/L<content styleCode="Margaret lics"> (3.5-5.3 MEQ/L)</conten t> UNK 7-17 <content Saint styleCode="Aiyana Figueroas d">BUN Medical </content>15 Center MG/DL<content styleCode="Margaret lics"> (7-17 MG/DL)</conten t> Creatinine 0.5-1.3 <content Saint [Mass/volume] styleCode="Aiyana Figueroas in Serum or d">Creatinine Medical Plasma </content>0.9 Center MG/DL<content styleCode="Margaret lics"> (0.5-1.3 MG/DL)</conten t> Calcium 8.4-10.2 <content Saint [Mass/volume] styleCode="Aiyana Diaz in Serum or d">Calcium Medical Plasma </content>9.1 Center MG/DL<content styleCode="Margaret lics"> (8.4-10.2 MG/DL)</conten t> Glucose 74-106 Above high normal <content Saint [Mass/volume] styleCode="Aiyana Diaz in Serum or d">Glucose Medical Plasma </content>124 Center MG/DL H<content styleCode="Margaret lics"> (74-106 MG/DL)</conten t> UNK > 60 <content Saint styleCode="Aiyana Diaz d">EGFR Medical </content>72 Center GFR<content styleCode="Margaret lics"> (> 60 GFR)</content> ID Date Data Source LIPID.[id number] 07/14/2019 11:48:00 AM [facility] Name Value Range Interpretation Description Data Sup porting Code Source(s) Document(s ) UNK > 60 Below low normal <content Saint styleCode="Aiyana Diaz d">HDL- Medical Cholesterol Center </content>49 MG/DL L<content styleCode="Margaret lics"> (> 60 MG/DL)</conten t> UNK < 100 Above high normal <content Saint styleCode="Aiyana Diaz d">LDL-Cholest Medical celeste Center </content>137 MG/DL H<content styleCode="Margaret lics"> (< 100 MG/DL)</conten t> Cholesterol -<200 Above high normal <content Saint [Mass/volume] in styleCode="Aiyana Diaz Serum or Plasma d">Cholesterol Medical </content>212 Center MG/DL H<content styleCode="Margaret lics"> (-<200 MG/DL)</conten t> Triglyceride < 150 <content Saint [Mass/volume] in styleCode="Aiyana Diaz Serum or Plasma d">Triglycerid Medical es Center </content>131 MG/DL<content styleCode="Margaret lics"> (< 150 MG/DL)</conten t> ID Date Data Source HematologyRou.[id number] 07/14/2019 11:48:00 AM EST [facility]ita [facility] 0500 Name Value Range Interpretation Description Data Sup porting Code Source(s) Document(s ) Leukocytes 4.4-11.0 <content Saint [#/volume] in styleCode="Bold [facility] Blood by ">White Blood Medical Automated count Cell Count Center </content>6.52 KCUMM<content styleCode="Ital ics"> (4.4-11.0 KCUMM)</content > Erythrocytes 4.0-5.1 <content Saint [#/volume] in styleCode="Bold Diaz Blood by ">Red Blood Medical Automated count Cell Count Center </content>4.51 MCUMM<content styleCode="Ital ics"> (4.0-5.1 MCUMM)</content > Erythrocyte mean 26.0-34. <content Saint corpuscular 0 styleCode="Bold Diaz hemoglobin ">Mean Medical [Entitic mass] Corposcular Center by Automated Hemoglobin count </content>30.4 PG<content styleCode="Ital ics"> (26.0-34.0 PG)</content> Hematocrit 36.0-46. <content Saint [Volume 0 styleCode="Bold Diaz Fraction] of ">Hematocrit Medical Blood by </content>41.9 Center Automated count %<content styleCode="Ital ics"> (36.0-46.0 %)</content> Hemoglobin 12.3-16. <content Saint [Mass/volume] in 0 styleCode="Bold Diaz Blood ">Hemoglobin Medical </content>13.7 Center G/DL<content styleCode="Ital ics"> (12.3-16.0 G/DL)</content> Erythrocyte mean 32.0-37. <content Saint corpuscular 0 styleCode="Bold Diaz hemoglobin ">Mean Corpus. Medical concentration Hgb Center [Mass/volume] by Concentration Automated count (MCHC) </content>32.7 G/DL<content styleCode="Ital ics"> (32.0-37.0 G/DL)</content> Erythrocyte mean 80.0-100 <content Saint corpuscular .0 styleCode="Bold Diaz volume [Entitic ">Mean Medical volume] by Corpuscular Center Automated count Volume </content>92.9 FL<content styleCode="Ital ics"> (80.0-100.0 FL)</content> UNK 0.0 <content Saint styleCode="Bold Diaz ">Nucleated Red Medical Blood Cell Center Count </content>0.00 KCUMM<content styleCode="Ital ics"> (0.0 KCUMM)</content > UNK 0 <content Saint styleCode="Bold Diaz ">Nucleated Red Medical Blood Cell Center </content>0.0 /100<content styleCode="Ital ics"> (0 /100)</content> Platelets 130-400 <content Saint [#/volume] in styleCode="Bold Diaz Blood by ">Platelet Medical Automated count Count Center </content>233 KCUMM<content styleCode="Ital ics"> (130-400 KCUMM)</content > Platelet mean 8.0-11.0 <content Saint volume [Entitic styleCode="Bold Diaz volume] in Blood ">Mean Platelet Medical by Automated Volume Center count </content>8.9 FL<content styleCode="Ital ics"> (8.0-11.0 FL)</content> Erythrocyte 11.5-14. <content Saint distribution 5 styleCode="Whitney Figueroas width [Ratio] by ">Red Cell Medical Automated count Distribution Center Width </content>13.3 %<content styleCode="Ital ics"> (11.5-14.5 %)</content> ID Date Data Source GFR(Creatinine).[id number] 07/14/2019 11:48:00 AM EST [facility] 0-0500 Name Value Range Interpretation Code Description Data Velia rce(s) Supporting Document(s ) UNK > 60 <content [facility] [facility] styleCode="Bold"> Medical Cent er EGFR </content>115 GFR<content styleCode="Italic s"> (> 60 GFR)</content> ID Date Data Source Coagulation 07/14/2019 11:48:00 AM [facility] ical Center Rout.[id number] EST Name Value Range Interpretation Description Data Sup porting Code Source(s) Document(s ) INR in 0.80-1.2 <content Saint Platelet poor 0 styleCode="Bold" Diaz plasma by >INR Medical Coagulation </content>1.11 Center assay #<content styleCode="Itali cs"> (0.80-1.20 #)</content> UNK < 500 <content Saint styleCode="Bold" Diaz >D-Dimer Medical </content>493 Center ngFEU<content styleCode="Itali cs"> (< 500 ngFEU)</content> UNK 9.0-13.0 <content Saint styleCode="Bold" Diaz >Protime Medical </content>12.3 Center SEC<content styleCode="Itali cs"> (9.0-13.0 SEC)</content> aPTT in 25.1-36. <content Saint Platelet poor 5 styleCode="Bold" Diaz plasma by >Partial Medical Coagulation Thromboplastin Center assay Time </content>27.7 SEC<content styleCode="Itali cs"> (25.1-36.5 SEC)</content> ID Date Data Source [id number] 07/14/2019 11:48:00 AM [facility] -0500 Name Value Range Interpretation Description Data Sup porting Code Source(s) Document(s ) Natriuretic < 125 <content Saint peptide.B styleCode="Aiyana Diaz prohormone d">NT Pro BNP Medical N-Terminal </content>25.9 Center [Mass/volume] PG/ML<content in Serum or styleCode="Margaret Plasma lics"> (< 125 PG/ML)</conten t> ID Date Data Source [employer].[id number] 07/14/2019 11:48:[address] [facility] -0500 Name Value Range Interpretation Description Data Sup porting Code Source(s) Document(s ) Troponin < 0.034 <content Saint I.cardiac styleCode="Bold Diaz [Mass/volume ">Troponin I Medical ] in Serum </content>< Center or Plasma 0.012 NG/ML<content styleCode="Ital ics"> (< 0.034 NG/ML)</content > ID Date Data Source [id number] 07/14/2019 11:48:00 AM EST [facility] Name Value Range Interpretation Description Data Sup porting Code Source(s) Document(s ) Potassium 3.5-5.3 <content Saint [Moles/volume] styleCode="Aiyana Diaz in Serum or d">Potassium Medical Plasma </content>4.0 Center MEQ/L<content styleCode="Margaret lics"> (3.5-5.3 MEQ/L)</conten t> Chloride 98-107 <content Saint [Moles/volume] styleCode="Aiyana Diaz in Serum or d">Chloride Medical Plasma </content>104 Center MEQ/L<content styleCode="Margaret lics"> (98-107 MEQ/L)</conten t> Sodium 137-145 <content Saint [Moles/volume] styleCode="Aiyana Diaz in Serum or d">Sodium Medical Plasma </content>140 Center MEQ/L<content styleCode="Margaret lics"> (137-145 MEQ/L)</conten t> Carbon 22-30 <content Saint dioxide, total styleCode="Aiyana Diaz [Moles/volume] d">Carbon Medical in Serum or Dioxide Center Plasma </content>26 MEQ/L<content styleCode="Margaret lics"> (22-30 MEQ/L)</conten t> Glucose 74-106 <content Saint [Mass/volume] styleCode="Aiyana Diaz in Serum or d">Glucose Medical Plasma </content>101 Center MG/DL<content styleCode="Margaret lics"> (74-106 MG/DL)</conten t> UNK 7-17 <content Saint styleCode="Aiyana Figueroas d">BUN Medical </content>13 Center MG/DL<content styleCode="Margaret lics"> (7-17 MG/DL)</conten t> Calcium 8.4-10.2 <content Saint [Mass/volume] styleCode="Aiyana Diaz in Serum or d">Calcium Medical Plasma </content>9.5 Center MG/DL<content styleCode="Margaret lics"> (8.4-10.2 MG/DL)</conten t> Creatinine 0.5-1.3 <content Saint [Mass/volume] styleCode="Aiyana Diaz in Serum or d">Creatinine Medical Plasma </content>0.6 Center MG/DL<content styleCode="Margaret lics"> (0.5-1.3 MG/DL)</conten t> UNK > 60 <content Saint styleCode="Aiyana Diaz d">EGFR Medical </content>115 Center GFR<content styleCode="Margaret lics"> (> 60 GFR)</content> ID Date Data Source Urinalysis.[id number] 05/20/2019 02:31:00 PM EDT [facility] 0 Name Value Range Interpretation Description Data Sup porting Code Source(s) Document(s ) Color of Urine YELLOW <content Saint styleCode="Aiyana Figueroas d">Color, Medical Urine Center </content>YELL OW <content styleCode="Margaret lics"> (YELLOW )</content> Specific 1.015-1.02 <content Saint gravity of 5 styleCode="Aiyana Perales Urine by Test d">Urine Medical strip Specific Center [place] </content>1.02 5 <content styleCode="Margaret lics"> (1.015-1.025 )</content> Ketones NEGATIVE <content Saint [Mass/volume] styleCode="Aiyana Perales in Urine by d">Urine Medical Test strip Ketone Center </content>NEGA TIVE MG/DL<content styleCode="Margaret lics"> (NEGATIVE MG/DL)</conten t> UNK NEGATIVE <content Saint styleCode="Aiyana Figueroas d">Urine Medical Bilirubin Center </content>NEGA TIVE <content styleCode="Margaret lics"> (NEGATIVE )</content> UNK CLEAR <content Saint styleCode="Aiyana Figueroas d">Urine Medical Clarity Center </content>ISRAEL R <content styleCode="Margaret lics"> (CLEAR )</content> Glucose NEGATIVE <content Saint [Mass/volume] styleCode="Aiyana Perales in Urine by d">Urine Medical Test strip Glucose Center </content>NEGA TIVE MG/DL<content styleCode="Margaret lics"> (NEGATIVE MG/DL)</conten t> Hemoglobin NEGATIVE <content Saint [Presence] in styleCode="Aiyana Perales Urine by Test d">Urine Blood Medical strip </content>NEGA Center TIVE <content styleCode="Margaret lics"> (NEGATIVE )</content> Urobilinogen 0.2-1.0 <content Saint [Units/volume] styleCode="Aiyana Figueroas in Urine by d">Urine Medical Test strip Urobilinogen Center </content>0.2 MG/DL<content styleCode="Margaret lics"> (0.2-1.0 MG/DL)</conten t> pH of Urine by 4.5-8.0 <content Saint Test strip styleCode="Aiyana Diaz d">Urine pH Medical </content>5.5 Center <content styleCode="Margaret lics"> (4.5-8.0 )</content> Protein NEGATIVE <content Saint [Mass/volume] styleCode="Aiyana Diaz in Urine by d">Urine Medical Test strip Protein Center </content>NEGA TIVE MG/DL<content styleCode="Margaret lics"> (NEGATIVE MG/DL)</conten t> Nitrite NEGATIVE <content Saint [Presence] in styleCode="Aiyana Diaz Urine by Test d">Urine Medical strip Nitrite Center </content>NEGA TIVE <content styleCode="Margaret lics"> (NEGATIVE )</content> Leukocyte NEGATIVE <content Saint esterase styleCode="Aiyana Diaz [Presence] in d">Urine Medical Urine by Test Leukocyte Center strip </content>NEGA TIVE <content styleCode="Margaret lics"> (NEGATIVE )</content> Procedure Social History Code Duration Value Status Description Data Source(s ) Smoking 04/18/2020 Denies Ever completed Denies Ever Smoked [facility] Diaz 11:48:00 PM EDT Smoked Medical C enter Smoking 04/18/2020 Denies Ever completed Denies Ever Smoked [facility] Diaz 11:21:00 PM EDT Smoked Medical C enter Smoking 03/17/2020 Denies Ever completed Denies Ever Smoked [facility] Diaz 08:32:00 PM EDT Smoked Medical C enter Smoking 03/17/2020 Denies Ever completed Denies Ever Smoked [facility] Diaz 07:56:00 PM EDT Smoked Medical C enter Smoking 03/17/2020 Denies Ever completed Denies Ever Smoked [facility] Diaz 07:34:00 PM EDT Smoked Medical C enter Smoking 01/19/2020 Denies Ever completed Denies Ever Smoked [facility] Diaz 03:48:00 PM EDT Smoked Medical C enter Smoking 01/19/2020 Denies Ever completed Denies Ever Smoked [facility] Diaz 02:27:00 PM EDT Smoked Medical C enter Smoking 01/19/2020 Denies Ever completed Denies Ever Smoked [facility] Diaz 02:04:00 PM EDT Smoked Medical C enter Smoking 12/29/2019 Denies Ever completed Denies Ever Smoked [facility] Diaz 07:11:00 AM EDT Smoked Medical C enter Smoking 12/29/2019 Denies Ever completed Denies Ever Smoked [facility] Diaz 03:23:00 AM EDT Smoked Medical C enter Smoking 12/29/2019 Denies Ever completed Denies Ever Smoked [facility] Diaz 03:21:00 AM EDT Smoked Medical C enter Smoking 08/20/2019 Denies Ever completed Denies Ever Smoked [facility] Diaz 10:53:00 PM EST Smoked Medical C enter Smoking 08/20/2019 Denies Ever completed Denies Ever Smoked [facility] Diaz 10:51:00 PM EST Smoked Medical C enter Smoking 08/20/2019 Denies Ever completed Denies Ever Smoked [facility] Diaz 09:51:00 PM EST Smoked Medical C enter Smoking 07/14/2019 Denies Ever completed Denies Ever Smoked [facility] Diaz 11:31:00 AM EST Smoked Medical C enter Smoking 07/14/2019 Denies Ever completed Denies Ever Smoked [facility] Diaz 11:30:00 AM EST Smoked Medical C enter Smoking 07/14/2019 Denies Ever completed Denies Ever Smoked Saint Daiz 10:57:00 AM EST Smoked Medical C enter Smoking 05/22/2019 Denies Ever completed Denies Ever Smoked [facility] Diaz 05:08:00 AM EDT Smoked Medical C enter Smoking 05/22/2019 Denies Ever completed Denies Ever Smoked [facility] Diaz 04:15:00 AM EDT Smoked Medical C enter Smoking 05/20/2019 Denies Ever completed Denies Ever Smoked Saint Diaz 02:13:00 PM EDT Smoked Medical C enter Smoking 05/20/2019 Denies Ever completed Denies Ever Smoked [facility] Diaz 01:40:00 PM EDT Smoked Medical C enter Smoking 04/21/2019 Denies Ever completed Denies Ever Smoked [facility] Diaz 11:35:00 AM EDT Smoked Medical C enter Vital Signs ID Date Data Source UNK Name Value Range Interpretation Code Description Data Source(s) Body temperature 36.967938 36.286028 [facility] Respiratory rate 17 /min 17 /min [facility] Oxygen saturation 99 % 99 % [facility] Arterial blood Medical Center by Pulse oximetry Heart rate 80 /min 80 /min [facility] Diastolic blood 75 mm[Hg] 75 mm[Hg] [facility] pressure Medical Center Systolic blood 150 mm[Hg] 150 mm[Hg] [facility] pressure Medical Center Diastolic blood 94 mm[Hg] 94 mm[Hg] [facility] pressure Medical Center Systolic blood 136 mm[Hg] 136 mm[Hg] [facility] Body temperature 36.025703 36.187764 [facility] Respiratory rate 18 /min 18 /min [facility] Oxygen saturation 99 % 99 % [facility] blood [facility] by Pulse oximetry Heart rate 90 /min 90 /min [facility] Diastolic blood 99 mm[Hg] 99 mm[Hg] [facility] pressure Medical Center Systolic blood 154 mm[Hg] 154 mm[Hg] [facility] Body weight 67.861406 kg 67.145968 kg [facility] Measured Medical Center Body temperature 36.790802 36.460447 [facility] Respiratory rate 20 /min 20 /min [facility] Oxygen saturation 98 % 98 % [facility] blood [facility] by Pulse oximetry Heart rate 99 /min 99 /min [facility] Body height 154.161215 154.310115 cm [facility] Medical [place] Diastolic blood 80 mm[Hg] 80 mm[Hg] [facility] pressure Medical Center Systolic blood 120 mm[Hg] 120 mm[Hg] [facility] Body mass index 27.9 kg/m2 27.9 kg/m2 [facility] (BMI) [Ratio] Medical [facility] Body weight 68.325851 kg 68.949224 kg [facility] Measured Medical Center Body temperature 36.078511 36.984454 [facility] Respiratory rate 18 /min 18 /min [facility] Oxygen saturation 99 % 99 % [facility] blood [facility] Center by Pulse oximetry Heart rate 87 /min 87 /min [facility] Body height 154.680324 154.965450 cm [facility] Diastolic blood 68 mm[Hg] 68 mm[Hg] [facility] pressure Medical Center Systolic blood 107 mm[Hg] 107 mm[Hg] [facility] Body mass index 28.3 kg/m2 28.3 kg/m2 [facility] (BMI) [Ratio] [facility] Body temperature 36.524738 36.752952 [facility] Respiratory rate 17 /min 17 /min [facility] Oxygen saturation 100 % 100 % [facility] Arterial blood Medical Center by Pulse oximetry Heart rate 74 /min 74 /min [facility] Diastolic blood 78 mm[Hg] 78 mm[Hg] [facility] Medical Center Systolic blood 121 mm[Hg] 121 mm[Hg] [facility] Body weight 65.479730 kg 65.925106 kg [facility] Body temperature 36.409949 36.293647 [facility] Respiratory rate 18 /min 18 /min [facility] Oxygen saturation 100 % 100 % [facility] Arterial blood Medical Center by Pulse oximetry Heart rate 94 /min 94 /min [facility] Body height 154.647621 154.254000 cm [facility] Diastolic blood 69 mm[Hg] 69 mm[Hg] [facility] Systolic blood 126 mm[Hg] 126 mm[Hg] [facility] Body mass index 27.0 kg/m2 27.0 kg/m2 [facility] (BMI) [Ratio] Medical [facility] ter Body temperature 37.575789 37.037477 [facility] Respiratory rate 18 /min 18 /min [facility] Oxygen saturation 99 % 99 % [facility] Arterial blood Medical Center by Pulse oximetry Heart rate 95 /min 95 /min [facility] Diastolic blood 78 mm[Hg] 78 mm[Hg] [facility] pressure Medical Center Systolic blood 122 mm[Hg] 122 mm[Hg] [facility] Body temperature 37.080071 37.866103 [facility] Respiratory rate 19 /min 19 /min [facility] Oxygen saturation 99 % 99 % [facility] Arterial blood Medical Center by Pulse oximetry Heart rate 115 /min 115 /min [facility] Diastolic blood 83 mm[Hg] 83 mm[Hg] [facility] pressure [facility] Systolic blood 123 mm[Hg] 123 mm[Hg] [facility] Body temperature 36.195823 36.472659 [facility] Respiratory rate 18 /min 18 /min [facility] Oxygen saturation 98 % 98 % [facility] by Pulse oximetry Heart rate 81 /min 81 /min [facility] Diastolic blood 69 mm[Hg] 69 mm[Hg] [facility] Systolic blood 113 mm[Hg] 113 mm[Hg] [facility] Body weight 63.478007 kg 63.354590 kg [facility] Body temperature 37.333957 37.296754 [facility] Respiratory rate 18 /min 18 /min [facility] Oxygen saturation 100 % 100 % [facility] by Pulse oximetry Heart rate 100 /min 100 /min [facility] Body height 154.906094 154.704030 cm [facility] Diastolic blood 74 mm[Hg] 74 mm[Hg] [facility] pressure [facility] Systolic blood 137 mm[Hg] 137 mm[Hg] [facility] Body mass index 26.4 kg/m2 26.4 kg/m2 [facility] (BMI) [Ratio] [facility] Body temperature 36.859222 36.505409 [facility] Respiratory rate 18 /min 18 /min [facility] Oxygen saturation 98 % 98 % [facility] by Pulse oximetry Heart rate 78 /min 78 /min [facility] Diastolic blood 76 mm[Hg] 76 mm[Hg] [facility] Systolic blood 129 mm[Hg] 129 mm[Hg] [facility] Patient Treatment Plan of Care Planned Activity Planned Date Details Description Data Source (s) gabapentin 100 MG Oral 04/17/2020 12:00:00 NEXTGEN ([facility]) Hydroxyzine Hydrochloride 04/17/2020 12:00:00 NEXTGEN ([facility] 25 MG Oral Tablet AM [facility]) Paroxetine 20 MG Oral 04/17/2020 12:00:00 NEXTGEN ([facility] Tablet [Paxil] AM [facility]) Trazodone Hydrochloride 04/17/2020 12:00:00 NEXTGEN ([facility] 50 MG Oral Tablet AM [facility]) gabapentin 100 MG Oral 03/20/2020 12:00:00 NEXTGEN (Saint Capsule AM [facility]) Hydroxyzine Hydrochloride 03/20/2020 12:00:00 NEXTGEN ([facility] 25 MG Oral Tablet AM [facility]) Paroxetine 20 MG Oral 03/20/2020 12:00:00 NEXTGEN (Saint Tablet [Paxil] AM [facility]) Trazodone Hydrochloride 03/20/2020 12:00:00 NEXTGEN ([facility] 50 MG Oral Tablet AM [facility]) gabapentin 100 MG Oral 02/24/2020 12:00:00 NEXTGEN (Saint Capsule AM [facility]) Hydroxyzine Hydrochloride 02/24/2020 12:00:00 NEXTGEN ([facility] 25 MG Oral Tablet AM [facility]) Paroxetine 20 MG Oral 02/24/2020 12:00:00 NEXTGEN (Saint Tablet [Paxil] AM [facility]) Trazodone Hydrochloride 02/24/2020 12:00:00 NEXTGEN ([facility] 50 MG Oral Tablet AM [facility]) gabapentin 100 MG Oral 01/22/2020 12:00:00 NEXTGEN (Saint Capsule AM [facility]) Hydroxyzine Hydrochloride 01/22/2020 12:00:00 NEXTGEN ([facility] 25 MG Oral Tablet AM [facility]) Paroxetine 20 MG Oral 01/22/2020 12:00:00 NEXTGEN (Saint Tablet [Paxil] AM [facility]) Trazodone Hydrochloride 01/22/2020 12:00:00 NEXTGEN ([facility] 50 MG Oral Tablet AM [facility]) Trazodone Hydrochloride 12/25/2019 12:00:00 NEXTGEN ([facility] 50 MG Oral Tablet AM [facility]) Paroxetine 20 MG Oral 12/25/2019 12:00:00 NEXTGEN (Saint Tablet [Paxil] AM [facility]) Hydroxyzine Hydrochloride 12/25/2019 12:00:00 NEXTGEN ([facility] 25 MG Oral Tablet AM [facility]) gabapentin 100 MG Oral 12/25/2019 12:00:00 NEXTGEN ([facility] Capsule [facility]) Trazodone Hydrochloride 12/25/2019 12:00:00 NEXTGEN ([facility] 50 MG Oral Tablet AM [facility]) gabapentin 100 MG Oral 12/25/2019 12:00:00 NEXTGEN ([facility] Capsule [facility]) Paroxetine 20 MG Oral 12/25/2019 12:00:00 NEXTGEN (Saint Tablet [Paxil] AM [facility]) Hydroxyzine Hydrochloride 12/25/2019 12:00:00 NEXTGEN ([facility] 25 MG Oral Tablet AM [facility]) gabapentin 100 MG Oral 11/15/2019 12:00:00 NEXTGEN ([facility] Capsule [facility]) Trazodone Hydrochloride 11/15/2019 12:00:00 NEXTGEN ([facility] 50 MG Oral Tablet AM [facility]) Paroxetine 20 MG Oral 10/18/2019 12:00:00 NEXTGEN (Saint Tablet [Paxil] AM [facility]) Hydroxyzine Hydrochloride 10/18/2019 12:00:00 NEXTGEN ([facility] 25 MG Oral Tablet AM [facility]) Trazodone Hydrochloride 10/18/2019 12:00:00 NEXTGEN ([facility] 50 MG Oral Tablet AM [facility]) gabapentin 100 MG Oral 10/18/2019 12:00:00 NEXTGEN ([facility] Capsule [facility]) gabapentin 100 MG Oral 09/20/2019 12:00:00 NEXTGEN (Saint Capsule [facility]) Trazodone Hydrochloride 09/20/2019 12:00:00 NEXTGEN ([facility] 50 MG Oral Tablet AM [facility]) Paroxetine 20 MG Oral 09/20/2019 12:00:00 NEXTGEN (Saint Tablet [Paxil] AM [facility]) Hydroxyzine Hydrochloride 09/20/2019 12:00:00 NEXTGEN (Saint 25 MG Oral Tablet AM [facility]) Hydroxyzine Hydrochloride 06/15/2019 12:00:00 NEXTGEN ([facility] 25 MG Oral Tablet AM [facility]) Paroxetine 20 MG Oral 06/15/2019 12:00:00 NEXTGEN (Saint Tablet [Paxil] AM [facility]) Trazodone Hydrochloride 06/15/2019 12:00:00 NEXTGEN (Saint 50 MG Oral Tablet AM [facility]) Trazodone Hydrochloride 05/18/2019 12:00:00 NEXTGEN ([facility] 50 MG Oral Tablet AM [facility]) Paroxetine 20 MG Oral 05/18/2019 12:00:00 NEXTGEN (Saint Tablet [Paxil] AM [facility]) Hydroxyzine Hydrochloride 05/18/2019 12:00:00 NEXTGEN ([facility] 25 MG Oral Tablet AM [facility]) Trazodone Hydrochloride 04/20/2019 12:00:00 NEXTGEN ([facility] 50 MG Oral Tablet AM [facility]) Paroxetine 20 MG Oral 04/20/2019 12:00:00 NEXTGEN (Saint Tablet [Paxil] AM [facility]) Hydroxyzine Hydrochloride 04/20/2019 12:00:00 NEXTGEN ([facility] 25 MG Oral Tablet AM [facility]) Hydroxyzine Hydrochloride 03/23/2019 12:00:00 NEXTGEN (Saint 25 MG Oral Tablet AM [facility]) Paroxetine 20 MG Oral 03/23/2019 12:00:00 NEXTGEN (Saint Tablet [Paxil] AM [facility]) Trazodone Hydrochloride 03/23/2019 12:00:00 NEXTGEN (Saint 50 MG Oral Tablet AM [facility]) Hydroxyzine Hydrochloride 02/23/2019 12:00:00 NEXTGEN ([facility] 25 MG Oral Tablet AM [facility]) Paroxetine 20 MG Oral 02/23/2019 12:00:00 NEXTGEN (Saint Tablet [Paxil] AM [facility]) Trazodone Hydrochloride 02/23/2019 12:00:00 NEXTGEN ([facility] 50 MG Oral Tablet AM [facility])
--- NOTE | 2020-05-02 13:22 | EKG ---
Test Reason : Blood Pressure : / mmHG Vent. Rate : 086 BPM Atrial Rate : 086 BPM P-R Int : 158 ms QRS Dur : 094 ms QT Int : 384 ms P-R-T Axes : 057 009 028 degrees QTc Int : 459 ms NORMAL SINUS RHYTHM POSSIBLE LEFT ATRIAL ENLARGEMENT INCOMPLETE RIGHT BUNDLE BRANCH BLOCK BORDERLINE ECG WHEN COMPARED WITH ECG OF 04-OCT-2019 06:15, NO SIGNIFICANT CHANGE WAS FOUND Confirmed by NOLVIA LI MD ([id number]) on 05/02/2020 1:21:53 PM Referred By: Confirmed By:NOLVIA LI MD
== END 2020-05-02 03:50 | disposition home or self-care (01) ==
LOC: JER 01:57
DX: R53.83 Other fatigue (principal)
CPT/HCPCS: 36415; 71046-TC-FY; 80053; 81003; 82550; 84443; 84484; 84703; 85025; 87086; 87804; 93005; 93010; 99284-25; C9803; U0003

== ENCOUNTER 2020-09-29 20:28 | Emergency (ER) | payer OTHER ==
[2020-09-29 20:42] VITALS: BP 126/84; PULSE 85; TEMP 98.7; BMI 26.2
[2020-09-29] MEDS ORDERED: KETOROLAC TROMETHAMINE 30 MG/1 ML VIAL IM ONE (21:33)
[2020-09-29] MEDS ORDERED: KETOROLAC TROMETHAMINE 30 MG/1 ML VIAL ONE (21:37)
[2020-09-29] MEDS ORDERED: ACETAMINOPHEN 500 MG TABLET (FP) PO ONE (22:21)
== END 2020-09-29 22:49 | disposition home or self-care (01) ==
LOC: JER 20:28
DX: M79.7 Fibromyalgia (principal); K21.9 Gastro-esophageal reflux disease without esophagitis
CPT/HCPCS: 71045-TC-FY; 93005; 93010; 99285-25; C9803; U0003

== ENCOUNTER 2020-10-08 14:09 | Emergency (ER) | payer OTHER ==
[2020-10-08 14:19] VITALS: BP 142/77; PULSE 94; TEMP 98.3; BMI 27.1
[2020-10-08] MEDS ORDERED: diazePAM 5 MG TABLET PO ONE (14:50)
[2020-10-08] MEDS ORDERED: LIDOCAINE 5% TOPICAL PATCH TP ONE (14:50)
[2020-10-08] MEDS ORDERED: diazePAM 5 MG TABLET ONE (15:01)
[2020-10-08] MEDS ORDERED: LIDOCAINE 5% TOPICAL PATCH ONE (15:01)
[2020-10-08] MEDS ORDERED: LIDOCAINE PATCH REMOVAL MC ONE (22:00)
== END 2020-10-08 15:09 | disposition home or self-care (01) ==
LOC: JERFT 14:09
DX: M54.12 Radiculopathy, cervical region (principal)
CPT/HCPCS: 99283-25

== ENCOUNTER 2020-12-13 02:16 | Emergency (ER) | payer OTHER ==
[2020-12-13 02:38] VITALS: BP 127/82; PULSE 79; TEMP 98.2; BMI 27.1
[2020-12-13] MEDS ORDERED: ACETAMINOPHEN 325 MG TABLET (FP) PO ONE (02:52)
[2020-12-13] MEDS ORDERED: ACETAMINOPHEN 325 MG TABLET (FP) ONE (03:02)
[2020-12-13] MEDS: KETOROLAC TROMETHAMINE 30 MG/1 ML VIAL IM ONE ×2 (04:24→04:26)
== END 2020-12-13 04:30 | disposition home or self-care (01) ==
LOC: JER 02:16
PROC: 3E0233Z Introduction of Anti-inflammatory into Muscle, Percutaneous Approach (ICD-10-PCS; principal; 2020-12-13)
DX: M79.10 Myalgia, unspecified site (principal)
CPT/HCPCS: 84703; 96372; 99284-25

== ENCOUNTER 2021-05-11 10:02 | Emergency (ER) | payer OTHER ==
[2021-05-11 10:08] VITALS: BP 129/83; PULSE 89; TEMP 98; BMI 26.6
[2021-05-11] MEDS ORDERED: ACETAMINOPHEN 500 MG TABLET (FP) PO ONE (11:17)
[2021-05-11] MEDS ORDERED: MECLIZINE HCL 25 MG TABLET (FP) PO ONE (11:17)
[2021-05-11] MEDS ORDERED: ACETAMINOPHEN 325 MG TABLET (FP) ONE (13:15)
[2021-05-11] MEDS ORDERED: MECLIZINE HCL 25 MG TABLET (FP) ONE (13:15)
== END 2021-05-11 13:34 | disposition home or self-care (01) ==
LOC: JER 10:02
DX: R51.9 Headache, unspecified (principal); H81.10 Benign paroxysmal vertigo, unspecified ear
CPT/HCPCS: 99283-25

== ENCOUNTER 2021-05-28 13:18 | Emergency (ER) | payer OTHER ==
[2021-05-28 13:30] VITALS: TEMP 98.9; BMI 28.1
[2021-05-28] MEDS ORDERED: SODIUM CHLORIDE 0.9% 500 ML INFUS.BAG IV ONE ×2 (14:22→14:29)
[2021-05-28] MEDS ORDERED: MECLIZINE HCL 25 MG TABLET (FP) PO ONE (14:22)
[2021-05-28] MEDS ORDERED: MECLIZINE HCL 25 MG TABLET (FP) ONE (15:12)
[2021-05-28 15:52] LABS: BASO % 0.6 % (0-2.0); EOS % 2.1 % (0-4.5); HEMOGLOBIN 13.2 GM/dL (10.7-15.3); LYMPH % 23.9 % (8-40); MCH 30.9 pg (25.7-33.7); MCHC 33.8 g/dl (32.0-36.0); MEAN CELL VOLUME 91.4 fl (80-96); MEAN PLT VOLUME 7.5 fl (7.5-11.1); MONO % 11.9 % (3.8-10.2); NEUT % 61.5 % (42.8-82.8); PLATELET COUNT 226 10^3/uL (134-434); RBC 4.26 M/mm3 (3.60-5.2); RDW 13.8 % (11.6-15.6); WHITE BLOOD COUNT 6.7 K/mm3 (4.0-10.0)
[2021-05-28 16:32] LABS: CHLORIDE 105 mmol/L (98-107); SODIUM 138 mmol/L (136-145)
[2021-05-28 16:34] LABS: ALBUMIN 3.4 g/dl (3.4-5.0); ANION GAP 9 MMOL/L (8-16); BLOOD UREA NITROGEN 16.5 mg/dL (7-18); CALCIUM 8.6 mg/dL (8.5-10.1); CO2 24 mmol/L (21-32); GLUCOSE,RANDOM 80 mg/dL (74-106)
[2021-05-28 16:36] LABS: MAGNESIUM 2.2 mg/dL (1.8-2.4)
[2021-05-28 16:37] LABS: CREATININE 0.8 mg/dL (0.55-1.3); SGOT/AST 22 U/L (15-37); SGPT/ALT 14 U/L (13-61)
[2021-05-28 16:39] LABS: BILIRUBIN,TOTAL 1.1 mg/dL (0.2-1); TOT PROT 7.8 g/dl (6.4-8.2)
[2021-05-28 16:40] LABS: ALK PHOS 124 U/L (45-117)
[2021-05-28] MEDS ORDERED: LORazepam 2 MG/ML SDV VIAL IVPB ONE (17:26)
[2021-05-28] MEDS ORDERED: LORazepam 2 MG/ML SDV VIAL ONE (17:37)
[2021-05-28 19:10] VITALS: BP 145/78; PULSE 83
== END 2021-05-28 19:09 | disposition home or self-care (01) ==
LOC: JER 13:18
PROC: 3E033NZ Introduction of Analgesics, Hypnotics, Sedatives into Peripheral Vein, Percutaneous Approach (ICD-10-PCS; principal; 2021-05-28)
DX: R51.9 Headache, unspecified (principal); R42 Dizziness and giddiness
CPT/HCPCS: 36415; 80053; 82550; 82962; 83735; 84484; 84703; 85025; 93005; 93010; 96374; 99284-25

== ENCOUNTER 2021-09-12 00:38 | Emergency (ER) | payer OTHER ==
[2021-09-12 00:51] VITALS: TEMP 98.1; BMI 27.9
[2021-09-12] MEDS ORDERED: FAMOTIDINE 20 MG/50 ML IVPB 20 MG/50 ML MG IVPB ONE ×2 (01:14→01:20)
[2021-09-12] MEDS ORDERED: ACETAMINOPHEN 1000 MG/100 ML BAG IVPB ONE (01:14)
[2021-09-12] MEDS ORDERED: SODIUM CHLORIDE 0.9% 500 ML INFUS.BAG IV ONE (01:14)
[2021-09-12] MEDS ORDERED: ACETAMINOPHEN INJECTION 100 ML IVPB ONE (01:20)
[2021-09-12 01:37] LABS: BASO % 0.7 % (0-2.0); EOS % 5.6 % (0-4.5); HEMATOCRIT 37.7 % (32.4-45.2); HEMOGLOBIN 12.6 GM/dL (10.7-15.3); LYMPH % 23.8 % (8-40); MCH 30.6 pg (25.7-33.7); MCHC 33.5 g/dl (32.0-36.0); MEAN CELL VOLUME 91.3 fl (80-96); MEAN PLT VOLUME 7.2 fl (7.5-11.1); MONO % 12.6 % (3.8-10.2); NEUT % 57.3 % (42.8-82.8); PLATELET COUNT 221 10^3/uL (134-434); RBC 4.13 M/mm3 (3.60-5.2); RDW 13.7 % (11.6-15.6); WHITE BLOOD COUNT 6.8 K/mm3 (4.0-10.0)
[2021-09-12 01:56] LABS: CALCIUM 8.7 mg/dL (8.5-10.1)
[2021-09-12 01:57] LABS: ALBUMIN 3.7 g/dl (3.4-5.0)
[2021-09-12 02:00] LABS: CREATININE 0.7 mg/dL (0.55-1.3)
[2021-09-12 02:02] LABS: BILIRUBIN,TOTAL 0.6 mg/dL (0.2-1); INR 1.02 (0.83-1.09); PROTHROMBIN TIME (PATIENT) 11.7 SEC (9.7-13.0); TOT PROT 7.9 g/dl (6.4-8.2)
[2021-09-12] MEDS ORDERED: KETOROLAC TROMETHAMINE 15 MG/ML VIAL IVPUSH ONE (04:00)
[2021-09-12] MEDS ORDERED: KETOROLAC TROMETHAMINE 15 MG/ML VIAL ONE (04:30)
[2021-09-12 04:37] VITALS: BP 140/90; PULSE 95
== END 2021-09-12 04:41 | disposition home or self-care (01) ==
LOC: JER 00:38
PROC: 3E033GC Introduction of Other Therapeutic Substance into Peripheral Vein, Percutaneous Approach (ICD-10-PCS; principal; 2021-09-12)
DX: R13.10 Dysphagia, unspecified (principal)
CPT/HCPCS: 36415; 70490-TC; 80053; 84703; 85025; 85610; 85730; 96365; 96375; 99285-25

== ENCOUNTER 2022-01-24 22:04 | Emergency (ER) | payer OTHER ==
[2022-01-24] MEDS ORDERED: DEXAMETHASONE SOD PHOSPHATE 10 MG/1 ML VIAL ONE (22:19)
[2022-01-24] MEDS ORDERED: ALBUTEROL SO4 2.5/IPRATROPIUM 0.5 INH SOL 3 ML VIAL.NEB. NEB ONE (22:19)
[2022-01-24 22:22] VITALS: BP 146/81; PULSE 102; TEMP 99.9; BMI 28.3
== END 2022-01-25 01:57 | disposition home or self-care (01) ==
LOC: JER 22:04
PROC: 3E0F7GC Introduction of Other Therapeutic Substance into Respiratory Tract, Via Natural or Artificial Opening (ICD-10-PCS; principal; 2022-01-24)
PROC: 3E033GC Introduction of Other Therapeutic Substance into Peripheral Vein, Percutaneous Approach (ICD-10-PCS; 2022-01-24)
DX: U07.1 COVID-19 (principal)
CPT/HCPCS: 0241U-QW; 94640; 96374; 99284-25

== ENCOUNTER 2022-02-17 09:45 | Emergency (ER) | payer OTHER ==
[2022-02-17 09:55] VITALS: BP 126/80; PULSE 95; RESP 18; TEMP 97.9; BMI 28.9
== END 2022-02-17 13:57 | disposition home or self-care (01) ==
LOC: JER 09:45 → JERFT 09:45 → JER 13:57
DX: R05.1 Acute cough (principal); R51.9 Headache, unspecified; J06.9 Acute upper respiratory infection, unspecified
CPT/HCPCS: 0241U-QW; 71046-TC-FY; 99284-25

== ENCOUNTER 2022-04-22 06:31 | Emergency (ER) | payer OTHER ==
[2022-04-22 06:45] VITALS: BP 131/88; PULSE 77; RESP 18; TEMP 98.1; BMI 65.2
[2022-04-22] MEDS ORDERED: KETOROLAC TROMETHAMINE 15 MG/ML VIAL IVPUSH ONE (08:57)
[2022-04-22] MEDS ORDERED: SODIUM CHLORIDE 500 ML IV STA (08:57)
== END 2022-04-22 09:10 | disposition left against medical advice (07) ==
LOC: JER 06:31
DX: R07.9 Chest pain, unspecified (principal)
CPT/HCPCS: 93005; 93010; 99283-25

== ENCOUNTER 2022-08-10 15:06 | Emergency (ER) | payer OTHER ==
[2022-08-10 15:39] VITALS: BMI 28.3
[2022-08-10] MEDS ORDERED: ACETAMINOPHEN 500 MG TABLET (FP) PO ONE (16:42)
[2022-08-10] MEDS ORDERED: DEXAMETHASONE SOD PHOSPHATE 10 MG/1 ML VIAL IVPUSH ONE (16:42)
[2022-08-10 17:06] LABS: BASO % 0.8 % (0-2.0); EOS % 3.7 % (0-4.5); HEMATOCRIT 40.3 % (32.4-45.2); HEMOGLOBIN 13.3 GM/dL (10.7-15.3); LYMPH % 19.3 % (8-40); MCH 30.2 pg (25.7-33.7); MEAN CELL VOLUME 91.3 fl (80-96); MEAN PLT VOLUME 6.8 fl (7.5-11.1); MONO % 10.8 % (3.8-10.2); NEUT % 65.4 % (42.8-82.8); PLATELET COUNT 215 10^3/uL (134-434); RBC 4.42 M/mm3 (3.60-5.2); RDW 14.1 % (11.6-15.6); WHITE BLOOD COUNT 6.1 K/mm3 (4.0-10.0)
[2022-08-10 17:12] LABS: PH,URINE 5.5 (5.0-8.0); URINE APPEARANCE CLEAR; URINE BILIRUBIN NEGATIVE (NEGATIVE); URINE COLOR YELLOW; URINE GLUCOSE (UA) TRACE (NEGATIVE); URINE KETONE NEGATIVE (NEGATIVE); URINE LEUK ESTERASE NEGATIVE (NEGATIVE); URINE NITRITE NEGATIVE (NEGATIVE); URINE PROTEIN NEGATIVE (NEGATIVE); URINE UROBILINOGEN 0.2 mg/dL (0.2-1.0)
[2022-08-10] MEDS ORDERED: DEXAMETHASONE SOD PHOSPHATE 10 MG/1 ML VIAL ONE (17:12)
[2022-08-10] MEDS ORDERED: ACETAMINOPHEN 500 MG TABLET (FP) ONE (17:13)
[2022-08-10 17:26] LABS: CALCIUM 8.9 mg/dL (8.5-10.1)
[2022-08-10 17:27] LABS: ALBUMIN 3.6 g/dl (3.4-5.0); BLOOD UREA NITROGEN 15.6 mg/dL (7-18)
[2022-08-10 17:30] LABS: CREATININE 0.6 mg/dL (0.55-1.3)
[2022-08-10 17:32] LABS: BILIRUBIN,TOTAL 0.9 mg/dL (0.2-1); TOT PROT 7.7 g/dl (6.4-8.2)
[2022-08-10 18:53] VITALS: BP 138/77; PULSE 89; RESP 16; TEMP 97.7
== END 2022-08-10 18:53 | disposition home or self-care (01) ==
LOC: JER 15:06
DX: R51.9 Headache, unspecified (principal)
CPT/HCPCS: 0241U-QW; 36415; 70450-TC; 71046-TC-FY; 80053; 81003; 85025; 99285-25

== ENCOUNTER 2024-01-15 20:45 | Emergency (ER) | payer OTHER ==
[2024-01-15 20:55] VITALS: BP 133/86; PULSE 60; RESP 18; TEMP 98; BMI 26.2
[2024-01-15] MEDS ORDERED: MAG HYDROX/AL HYDROX/SIMETH 30 ML UNIT-DOSE CUP ONE (22:26)
[2024-01-15] MEDS ORDERED: ACETAMINOPHEN 325 MG TABLET (FP) ONE (22:26)
[2024-01-15] MEDS ORDERED: FAMOTIDINE 20 MG TABLET ONE (22:26)
[2024-01-15] MEDS: FAMOTIDINE 20 MG TABLET PO ONE (22:44)
[2024-01-15] MEDS: MAG HYDROX/AL HYDROX/SIMETH 30 ML UNIT-DOSE CUP PO ONE (22:44)
[2024-01-15] MEDS: ACETAMINOPHEN 325 MG TABLET (FP) PO ONE (22:45)
[2024-01-15 22:50] LABS: EOS % 1.1 % (0-4.5); HEMATOCRIT 41.1 % (32.4-45.2); HEMOGLOBIN 13.8 GM/dL (10.7-15.3); LYMPH % 31.9 % (8-40); MCH 30.8 pg (25.7-33.7); MCHC 33.5 g/dl (32.0-36.0); MEAN CELL VOLUME 91.7 fl (80-96); MEAN PLT VOLUME 7.1 fl (7.5-11.1); MONO % 11.7 % (3.8-10.2); NEUT % 54.3 % (42.8-82.8); PLATELET COUNT 187 10^3/uL (134-434); RBC 4.49 M/mm3 (3.60-5.2); RDW 14.3 % (11.6-15.6); WHITE BLOOD COUNT 5.9 K/mm3 (4.0-10.0)
[2024-01-15 22:51] LABS: PH,URINE 5.5 (5.0-8.0); URINE APPEARANCE CLEAR; URINE BILIRUBIN NEGATIVE (NEGATIVE); URINE COLOR YELLOW; URINE GLUCOSE (UA) 3+ (NEGATIVE); URINE KETONE NEGATIVE (NEGATIVE); URINE LEUK ESTERASE NEGATIVE (NEGATIVE); URINE NITRITE NEGATIVE (NEGATIVE); URINE PROTEIN NEGATIVE (NEGATIVE); URINE UROBILINOGEN 0.2 mg/dL (0.2-1.0)
[2024-01-15 22:54] LABS: HCG,QUALITATIVE URINE Negative
[2024-01-15 22:55] LABS: INR 1.03 (0.83-1.09); PROTHROMBIN TIME (PATIENT) 11.8 SEC (9.7-13.0)
[2024-01-15 22:58] LABS: ACTIVATED PTT 28.6 SECONDS (25.2-36.5)
[2024-01-15 23:10] LABS: POTASSIUM 4.1 mmol/L (3.5-5.1)
[2024-01-15 23:12] LABS: ALBUMIN 3.7 g/dl (3.4-5.0); BLOOD UREA NITROGEN 22.1 mg/dL (7-18); CALCIUM 9.1 mg/dL (8.5-10.1)
[2024-01-15 23:16] LABS: CREATININE 0.6 mg/dL (0.55-1.3)
[2024-01-15 23:17] LABS: BILIRUBIN,TOTAL 0.9 mg/dL (0.2-1); TOT PROT 7.9 g/dl (6.4-8.2)
== END 2024-01-16 01:37 | disposition home or self-care (01) ==
LOC: JER 20:45
DX: R10.30 Lower abdominal pain, unspecified (principal)
CPT/HCPCS: 36415; 74176-TC; 80053; 81003; 83605; 83690; 84484; 84703; 85025; 85610; 85730; 86850; 86900; 86901; 87086; 93005; 93010; 99285-25

== ENCOUNTER 2024-02-02 19:08 | Emergency (ER) | payer OTHER ==
[2024-02-02 19:20] VITALS: RESP 18; BMI 25.4
[2024-02-02] MEDS: ACETAMINOPHEN 1000 MG/100 ML BAG IVPB ONE (21:06)
[2024-02-02] MEDS ORDERED: ACETAMINOPHEN 325 MG TABLET (FP) ONE (21:07)
[2024-02-02 21:10] LABS: URINE APPEARANCE CLEAR; URINE BILIRUBIN NEGATIVE (NEGATIVE); URINE COLOR YELLOW; URINE GLUCOSE (UA) 3+ (NEGATIVE); URINE KETONE NEGATIVE (NEGATIVE); URINE LEUK ESTERASE NEGATIVE (NEGATIVE); URINE NITRITE NEGATIVE (NEGATIVE); URINE PROTEIN NEGATIVE (NEGATIVE); URINE UROBILINOGEN 0.2 mg/dL (0.2-1.0)
[2024-02-02] MEDS: ACETAMINOPHEN 325 MG TABLET (FP) PO ONE (21:10)
[2024-02-02 21:11] LABS: BASO % 0.5 % (0-2.0); EOS % 1.5 % (0-4.5); HEMATOCRIT 40.6 % (32.4-45.2); HEMOGLOBIN 13.7 GM/dL (10.7-15.3); LYMPH % 29.5 % (8-40); MCH 30.9 pg (25.7-33.7); MCHC 33.8 g/dl (32.0-36.0); MEAN CELL VOLUME 91.6 fl (80-96); MEAN PLT VOLUME 7.6 fl (7.5-11.1); MONO % 10.6 % (3.8-10.2); NEUT % 57.9 % (42.8-82.8); PLATELET COUNT 252 10^3/uL (134-434); RBC 4.44 M/mm3 (3.60-5.2); RDW 14.4 % (11.6-15.6); WHITE BLOOD COUNT 6.1 K/mm3 (4.0-10.0)
[2024-02-02 21:20] LABS: INR 1.02 (0.83-1.09); PROTHROMBIN TIME (PATIENT) 11.5 SEC (9.7-13.0)
[2024-02-02 21:22] LABS: ACTIVATED PTT 28.5 SECONDS (25.2-36.5)
[2024-02-02 21:31] LABS: POTASSIUM 4.4 mmol/L (3.5-5.1)
[2024-02-02 21:33] LABS: CALCIUM 9.4 mg/dL (8.5-10.1)
[2024-02-02 21:34] LABS: ALBUMIN 4.1 g/dl (3.4-5.0); BLOOD UREA NITROGEN 21.6 mg/dL (7-18)
[2024-02-02 21:37] LABS: CREATININE 0.7 mg/dL (0.55-1.3)
[2024-02-02 21:38] LABS: TOT PROT 8.7 g/dl (6.4-8.2)
[2024-02-02 23:47] VITALS: BP 119/74; PULSE 68; TEMP 97.6
== END 2024-02-03 01:32 | disposition home or self-care (01) ==
LOC: JER 19:08
DX: R07.89 Other chest pain (principal); R10.11 Right upper quadrant pain; M54.9 Dorsalgia, unspecified
CPT/HCPCS: 36415; 71046-TC-FY; 76705-TC; 80053; 81003; 83690; 83880; 84484; 84703; 85025; 85610; 85730; 87086; 93005; 93010; 99285-25

== ENCOUNTER 2024-03-21 20:50 | Emergency (ER) | payer OTHER ==
[2024-03-21 21:02] VITALS: BP 144/83; PULSE 87; RESP 20; TEMP 98.8; BMI 26.4
[2024-03-21] MEDS ORDERED: ACETAMINOPHEN 325 MG TABLET (FP) ONE (21:14)
[2024-03-21] MEDS: ACETAMINOPHEN 325 MG TABLET (FP) PO ONE (21:34)
[2024-03-21] MEDS ORDERED: diazePAM 5 MG TABLET ONE (21:38)
[2024-03-21] MEDS: diazePAM 5 MG TABLET PO ONE (21:41)
== END 2024-03-22 01:06 | disposition home or self-care (01) ==
LOC: JER 20:50
DX: M54.50 Low back pain, unspecified (principal); G89.29 Other chronic pain
CPT/HCPCS: 84703; 99283-25

== ENCOUNTER 2024-05-27 22:11 | Emergency (ER) | payer OTHER ==
[2024-05-27 22:17] VITALS: TEMP 99; BMI 26.2
[2024-05-27] MEDS ORDERED: MECLIZINE HCL 25 MG TABLET (FP) ONE (23:08)
[2024-05-27] MEDS ORDERED: ACETAMINOPHEN INJECTION 100 ML ONE (23:09)
[2024-05-27 23:49] LABS: BASO % 0.5 % (0-2.0); EOS % 2.6 % (0-4.5); HEMATOCRIT 38.7 % (32.4-45.2); LYMPH % 29.6 % (8-40); MCHC 33.6 g/dl (32.0-36.0); MEAN CELL VOLUME 92.1 fl (80-96); MEAN PLT VOLUME 6.8 fl (7.5-11.1); MONO % 11.7 % (3.8-10.2); NEUT % 55.6 % (42.8-82.8); PLATELET COUNT 210 10^3/uL (134-434); RDW 13.5 % (11.6-15.6); WHITE BLOOD COUNT 5.6 K/mm3 (4.0-10.0)
[2024-05-27 23:55] LABS: INR 1.04 (0.83-1.09); PROTHROMBIN TIME (PATIENT) 11.9 SEC (9.7-13.0)
[2024-05-27 23:58] LABS: ACTIVATED PTT 31.4 SECONDS (25.2-36.5)
[2024-05-28 00:29] LABS: CALCIUM 8.8 mg/dL (8.5-10.1)
[2024-05-28 00:30] LABS: ALBUMIN 3.7 g/dl (3.4-5.0); BLOOD UREA NITROGEN 18.5 mg/dL (7-18); MAGNESIUM 1.9 mg/dL (1.8-2.4)
[2024-05-28 00:33] LABS: CREATININE 0.6 mg/dL (0.55-1.3)
[2024-05-28 00:34] LABS: BILIRUBIN,TOTAL 0.9 mg/dL (0.2-1)
[2024-05-28 00:35] LABS: TOT PROT 7.8 g/dl (6.4-8.2)
[2024-05-28 00:36] LABS: POTASSIUM 3.6 mmol/L (3.5-5.1)
[2024-05-28] MEDS: SODIUM CHLORIDE 0.9% 500 ML INFUS.BAG IV ONE ×2 (01:03→03:27)
[2024-05-28 01:39] LABS: URINE APPEARANCE CLEAR; URINE BILIRUBIN NEGATIVE (NEGATIVE); URINE COLOR YELLOW; URINE GLUCOSE (UA) NEGATIVE (NEGATIVE); URINE KETONE NEGATIVE (NEGATIVE); URINE LEUK ESTERASE NEGATIVE (NEGATIVE); URINE NITRITE NEGATIVE (NEGATIVE); URINE PROTEIN NEGATIVE (NEGATIVE); URINE UROBILINOGEN 0.2 mg/dL (0.2-1.0)
[2024-05-28] MEDS: MECLIZINE HCL 25 MG TABLET (FP) PO ONE (01:57)
[2024-05-28] MEDS: ACETAMINOPHEN 1000 MG/100 ML BAG IVPB ONE (01:57)
[2024-05-28 04:53] VITALS: BP 137/76; PULSE 76; RESP 19
== END 2024-05-28 06:53 | disposition home or self-care (01) ==
LOC: JER 22:11
DX: R42 Dizziness and giddiness (principal); R19.7 Diarrhea, unspecified
CPT/HCPCS: 36415; 70450-TC; 71045-TC-FY; 74176-TC; 80053; 81003; 83735; 84484; 84703; 85025; 85610; 85730; 86850; 86900; 86901; 87086; 93005; 93010; 99285-25

== ENCOUNTER 2024-07-24 00:38 | Emergency (ER) | payer OTHER ==
[2024-07-24 00:45] VITALS: BP 124/79; PULSE 99; RESP 20; TEMP 99.5; BMI 26.2
[2024-07-24 01:59] LABS: BASO % 0.4 % (0-2.0); EOS % 0.4 % (0-4.5); HEMATOCRIT 42.2 % (32.4-45.2); HEMOGLOBIN 14.2 GM/dL (10.7-15.3); LYMPH % 27.3 % (8-40); MCHC 33.7 g/dl (32.0-36.0); MEAN CELL VOLUME 91.9 fl (80-96); MEAN PLT VOLUME 7.2 fl (7.5-11.1); MONO % 11.4 % (3.8-10.2); NEUT % 60.5 % (42.8-82.8); PLATELET COUNT 154 10^3/uL (134-434); RBC 4.59 M/mm3 (3.60-5.2); RDW 13.9 % (11.6-15.6); WHITE BLOOD COUNT 3.2 K/mm3 (4.0-10.0)
[2024-07-24 02:19] LABS: POTASSIUM 3.2 mmol/L (3.5-5.1)
[2024-07-24 02:21] LABS: BLOOD UREA NITROGEN 11.2 mg/dL (7-18); CALCIUM 8.9 mg/dL (8.5-10.1)
[2024-07-24 02:22] LABS: ALBUMIN 3.6 g/dl (3.4-5.0)
[2024-07-24 02:25] LABS: CREATININE 0.7 mg/dL (0.55-1.3)
[2024-07-24 02:26] LABS: BILIRUBIN,TOTAL 0.6 mg/dL (0.2-1)
[2024-07-24] MEDS ORDERED: ACETAMINOPHEN 325 MG TABLET (FP) ONE (02:33)
[2024-07-24] MEDS: ACETAMINOPHEN 325 MG TABLET (FP) PO ONE (02:37)
== END 2024-07-24 04:03 | disposition home or self-care (01) ==
LOC: JER 00:38
DX: J10.1 Influenza due to other identified influenza virus with other respiratory manifestations (principal); R53.1 Weakness; R51.9 Headache, unspecified; R50.9 Fever, unspecified; R53.83 Other fatigue; R05.9 Cough, unspecified; R53.81 Other malaise; Z20.822 Contact with and (suspected) exposure to COVID-19
CPT/HCPCS: 0241U-QW; 36415; 71046-TC-FY; 80053; 84703; 85025; 99284-25

== ENCOUNTER 2024-12-22 21:03 | Emergency (ER) | payer OTHER ==
[2024-12-22 21:08] VITALS: BP 137/79; PULSE 103; RESP 18; TEMP 98.6; BMI 28.1
[2024-12-22] MEDS ORDERED: ACETAMINOPHEN 325 MG TABLET (FP) ONE (21:37)
[2024-12-22] MEDS: ACETAMINOPHEN 325 MG TABLET (FP) PO ONE (21:40)
[2024-12-22 21:59] LABS: ABSOLUTE IMMATURE GRANULOCYTES 0.02 x10^3/uL (0.0-0.031); BASOPHILS # 0.02 x10^3/uL (0.01-0.08); EOSINOPHIL % 0.8 % (0.7-5.8); EOSINOPHILS # 0.05 x10^3/uL (0.04-0.36); HEMATOCRIT 42.3 % (34.1-44.9); HEMOGLOBIN 13.6 g/dL (11.2-15.7); MCHC 32.2 g/dl (32.2-35.5); MEAN CELL VOLUME 92.4 fl (79.4-94.8); MEAN PLT VOLUME 8.9 fl (9.4-12.3); MONOCYTE # 0.63 x10^3/uL (0.24-0.86); MONOCYTE % 10.4 % (4.7-12.5); PLATELET COUNT 208 x10^3/uL (182-369); RDW 13.3 % (12.2-17.1)
[2024-12-22 22:28] LABS: POTASSIUM 4.1 mmol/L (3.5-5.1)
[2024-12-22 22:31] LABS: ALBUMIN 3.8 g/dl (3.4-5.0); BLOOD UREA NITROGEN 23.8 mg/dL (7-18); CALCIUM 9.6 mg/dL (8.5-10.1)
[2024-12-22 22:35] LABS: CREATININE 0.7 mg/dL (0.55-1.3)
[2024-12-22 22:36] LABS: BILIRUBIN,TOTAL 0.7 mg/dL (0.2-1); TOT PROT 8.2 g/dl (6.4-8.2)
[2024-12-22] MEDS ORDERED: METHOCARBAMOL 500 MG TABLET ONE (23:29)
[2024-12-22] MEDS ORDERED: CycloBENZAprine HCL 5 MG TABLET ONE (23:32)
[2024-12-22] MEDS: METHOCARBAMOL 500 MG TABLET PO ONE (23:34)
[2024-12-22] MEDS: CycloBENZAprine HCL 10 MG TABLET (FP) PO ONE (23:34)
[2024-12-22] MEDS: IBUPROFEN 400 MG TABLET (FP) PO ONE (23:34)
== END 2024-12-23 00:54 | disposition home or self-care (01) ==
LOC: JER 21:03
DX: S39.012A Strain of muscle, fascia and tendon of lower back, initial encounter (principal); R07.89 Other chest pain; M25.512 Pain in left shoulder; M79.672 Pain in left foot; M79.602 Pain in left arm; M79.605 Pain in left leg; R51.9 Headache, unspecified; X58.XXXA Exposure to other specified factors, initial encounter
CPT/HCPCS: 36415; 71046-TC-FY; 72100-TC-FY; 80053; 84484; 85025; 93005; 93010; 99285-25

== ENCOUNTER 2025-01-18 12:08 | Emergency (ER) | payer OTHER ==
[2025-01-18 12:17] VITALS: BP 118/72; PULSE 82; RESP 18; TEMP 97.9; BMI 27.8
[2025-01-18] MEDS ORDERED: ACETAMINOPHEN 500 MG TABLET (FP) ONE (14:24)
== END 2025-01-18 14:40 | disposition home or self-care (01) ==
LOC: JER 12:08
DX: M79.645 Pain in left finger(s) (principal); M20.002 Unspecified deformity of left finger(s)
CPT/HCPCS: 73130-TC-LT-FY; 99283-25